=== PATIENT | female | born 1945 | race Caucasian/White ===

== ENCOUNTER 2017-03-08 08:34 | Outpatient (CLI) | payer MEDICARE, OTHER | END 2017-03-08 08:35 | disposition home or self-care (01) | DX: G43.009 Migraine without aura, not intractable, without status migrainosus (principal); Z79.899 Other long term (current) drug therapy; K21.9 Gastro-esophageal reflux disease without esophagitis; Z13.6 Encounter for screening for cardiovascular disorders ==

== ENCOUNTER 2017-08-12 17:59 | Outpatient (CLI) | payer MEDICARE, OTHER ==
--- NOTE | 2017-08-13 09:57 | CT Report ---
CT SINUSES: 08/12/2017 CLINICAL INDICATION: Right supraorbital headache. TECHNIQUE: Axial CT images of the paranasal sinuses were obtained without contrast, following which sagittal and coronal reconstructions were performed. In accordance with CT protocol optimization, one or more of the following dose reduction techniques w ere utilized for this exam: automated exposure control, adjustment of mA and/or KV based on patient size, or use of iterative reconstructive technique. FINDINGS: Postoperative changes are seen in the medial rudolph of the maxillary sinuses bilaterally. There is minimal mucosal thickening in the right maxillary sinus, and mild mucosal thickening in the left maxillary sinus. The visualized ethmoid air cells, sphenoid sinus, and frontal sinuses are unre markable. There is leftward spurring of the septum. No osseous destruction is seen. IMPRESSION: POSTOPERATIVE CHANGES BILATERALLY. MILD MAXILLARY MUCOSAL THICKENING. JOB #: [id number] EXT JOB #:[id number]
== END 2017-08-12 18:00 | disposition home or self-care (01) ==
LOC: DI 17:59
DX: R51 Headache (principal)
CPT/HCPCS: 70486

== ENCOUNTER 2017-12-01 07:56 | Outpatient (CLI) | payer MEDICARE, OTHER ==
[2017-12-01 12:04] LABS: T4 (THYROXINE) 8.24 ug/dL (6.09-12.23)
[2017-12-01 12:07] LABS: THYROID STIMULATING HORMONE 3.06 uIU/mL (0.34-5.60)
[2017-12-01 12:09] LABS: FREE T4 (FREE THYROXINE) 0.96 ng/dL (0.58-1.64)
[2017-12-01 12:14] LABS: TOTAL T3 1.02 ng/mL (0.87-1.78)
== END 2017-12-01 07:57 | disposition home or self-care (01) ==
LOC: LAB.F 07:56
PROVIDERS: ATTEND Internal Medicine
DX: R68.89 Other general symptoms and signs (principal)
CPT/HCPCS: 36415; 84436; 84439; 84443; 84480; 84481

== ENCOUNTER 2018-05-27 15:22 | Outpatient (CLI) | payer MEDICARE, OTHER ==
--- NOTE | 2018-05-28 15:24 | MRI Report ---
Procedure Date: 05/27/2018 Accession Number: [id number] / [id number] Procedure: MRI - Lumbar Spine W/O CPT Code: FULL RESULT: EXAM: MRI LUMBAR SPINE WITHOUT CONTRAST EXAM DATE: 05/27/2018 04:01 PM. CLINICAL HISTORY: LUMBAR RADICULOPATHY. COMPARISON: None. TECHNIQUE: Multiplanar, multisequence T1-weighted and fluid-sensitive sequences of the lumbar spine from T12 to S1 without contrast. Other: None. FINDINGS: Alignment: Approximately 2 mm posterior subluxation L2 on L3 and L4 on L5. Mild lumbar curvature convex right. Otherwise normal alignment. Spinal Canal: The conus terminates at L1-L2. The conus medullaris and cauda equina are unremarkable. Bone Marrow: Five wyn-fvn-ecekjpf lumbar vertebral bodies are assumed. No acute fracture identified. Fatty diskogenic endplate changes at L4-L5. Small amount of diskogenic edema posteriorly at L3-L4. T11 vertebral body lesion most consistent with atypical hemangioma. Smaller L1 vertebral body hemangioma. Disk Levels/Facets: T12-L1: Unremarkable. L1-L2: Disk height loss and dehydration. Annular disk bulge with tiny annular fissure. Mild central canal stenosis. No significant foraminal stenosis. L2-L3: Disk height loss and dehydration. Slight retrolisthesis. Annular disk bulge and moderate degenerative facet arthropathy. Lbni-yw-xpxedeqg central canal stenosis. Mild inferior foraminal narrowing. L3-L4: Disk height loss and dehydration. Annular disk bulge and moderate degenerative facet arthropathy. Ligamentum flavum buckling. Moderate central canal stenosis. Left lateral recess stenosis with some mass effect on the left-sided L4 and L5 nerve roots. Mild left foraminal stenosis. L4-L5: Disk height loss and dehydration. Annular disk bulge with broad-based superimposed central and right foraminal disk protrusion. Smaller left foraminal protrusion. Mild central canal stenosis. Right lateral recess stenosis. Moderate right greater than left foraminal stenosis. L5-S1: Disk height loss and dehydration. Annular disk bulge with broad-based left paracentral and foraminal protrusion as well as right foraminal protrusion. Moderate facet arthropathy. No significant central canal stenosis. Moderate to severe right and moderate left foraminal stenosis. Musculature: Atrophy of the lower paraspinous muscles. Other: Partially visualized large cystic structures in the left retroperitoneum, the largest measuring 8.5 cm in diameter suspicious for large left renal cyst, incompletely visualized. Consider further evaluation with ultrasound. IMPRESSION: 1. Moderate to severe multilevel lumbar degenerative disk and facet arthropathy. 2. L5-S1 moderate to severe right and moderate left foraminal stenosis. 3. L4-L5 mild central canal stenosis. Moderate right greater than left foraminal stenosis. 4. L3-L4 moderate central canal stenosis. Mild left foraminal stenosis. 5. L2-L3 vivu-vr-[id number] central canal stenosis. Comment: The following findings are so common in adults without low back pain that while we report their presence, they must be interpreted with caution and in the context of the clinical situation. (Reference Soniavik et al, Spine 2001) Prevalence of findings in patients without low back pain: Disk degeneration (any evidence): 92% Disk desiccation/T2 signal loss: 83% Disk height loss: 56% Disk bulge: 64% Disk protrusion: 32% Annular tear/high intensity zone: 38% RADIA
== END 2018-05-27 15:23 | disposition home or self-care (01) ==
LOC: DI 15:22
PROVIDERS: ATTEND Internal Medicine
DX: M51.36 Other intervertebral disc degeneration, lumbar region (principal); M51.26 Other intervertebral disc displacement, lumbar region; M47.896 Other spondylosis, lumbar region; M51.37 Other intervertebral disc degeneration, lumbosacral region; M47.897 Other spondylosis, lumbosacral region; M48.061 Spinal stenosis, lumbar region without neurogenic claudication; M48.07 Spinal stenosis, lumbosacral region
CPT/HCPCS: 72148

== ENCOUNTER 2018-12-28 16:22 | Outpatient (CLI) | payer MEDICARE, OTHER ==
--- NOTE | 2018-12-28 21:27 | MRI Report ---
Reason: CERVICAL SPONDYLOSIS W/MYELOPATHY Procedure Date: 12/28/2018 Accession Number: [id number] / [id number] Procedure: MRI - Cervical Spine W/O CPT Code: FULL RESULT: EXAM: MRI CERVICAL SPINE WITHOUT CONTRAST EXAM DATE: 12/28/2018 05:06 PM. CLINICAL HISTORY: 73-year-old female. CERVICAL SPONDYLOSIS W/MYELOPATHY. COMPARISONS: None. TECHNIQUE: Multiplanar, multisequence T1-weighted and fluid-sensitive sequences of the cervical spine without contrast. Other: None. FINDINGS: Neurologic Structures: The visualized posterior fossa structures are unremarkable. No signal abnormality in the visualized spinal cord. Alignment: Grade 1 retrolisthesis C4 on C5 measuring 2 mm. Grade 1 retrolisthesis C5 on C6 measuring 2 mm. Grade 1 retrolisthesis C6 on C7 measuring 2 mm. Bone Marrow: No gross fractures or bone lesions. No marrow edema. Interspace Levels/Facets: C1-C2: Unremarkable. C2-C3: Unremarkable. C3-C4: Mild diffuse disposed. Mild left facet arthropathy. No significant central canal or foraminal narrowing. C4-C5: Moderate disk height loss and desiccation. Small posterior disk osteophyte complex. Mild bilateral uncovertebral spurring. Mild to moderate left and mild right facet arthropathy. No significant central canal narrowing. Moderate left foraminal narrowing. No right foraminal narrowing. C5-C6: Moderate to severe disk height loss and desiccation. Moderate posterior disk osteophyte complex, asymmetric to the right, with superimposed 3 mm right foraminal protrusion. Mild to moderate bilateral facet arthropathy. Mild central canal narrowing. Moderate right and mild left foraminal narrowing. C6-C7: Moderate disk height loss and desiccation. Moderate posterior disk osteophyte complex. Mild central canal narrowing. Mild to moderate spinal foraminal narrowing. C7-T1: Unremarkable. Musculature: Normal. No edema or fatty atrophy. Other: Enlarged heterogeneous thyroid gland with multiple nodules, incompletely evaluated on this examination. The paravertebral and prevertebral soft tissues are normal. IMPRESSION: 1. Moderate multilevel degenerative spondylosis, as detailed above and summarized below. No evidence of acute fracture or malalignment. No bone marrow edema. No cord signal abnormality. 2. C4-C5: No significant central canal narrowing. Moderate left foraminal narrowing. No right foraminal narrowing. 3. C5-C6: Mild central canal narrowing. Moderate right and mild left foraminal narrowing. Recommend correlation for right C6 radicular symptoms. 4. C6-C7: Mild central canal narrowing. Mild to moderate spinal foraminal narrowing. 5. No significant central canal or foraminal narrowing at the remaining cervical levels. RADIA
== END 2018-12-28 16:23 | disposition home or self-care (01) ==
LOC: DI 16:22
PROVIDERS: ATTEND Orthopaedic Surgery
DX: M47.12 Other spondylosis with myelopathy, cervical region (principal); M48.02 Spinal stenosis, cervical region
CPT/HCPCS: 72141

== ENCOUNTER 2019-03-08 10:24 | Outpatient (CLI) | payer MEDICARE, OTHER ==
[2019-03-08 17:41] LABS: BASOPHILS % (AUTO) 0.4 %; EOSINOPHILS # (AUTO) 0.3 10^3/uL (0.0-0.7); EOSINOPHILS % (AUTO) 3.6 %; HGB - HEMOGLOBIN 12.5 g/dL (12.0-16.0); LYMPHOCYTES # (AUTO) 1.4 10^3/uL (1.5-3.5); LYMPHOCYTES % (AUTO) 15.6 %; MEAN CORPUSCULAR HEMOGLOBIN 29.1 pg (27.0-31.0); MEAN CORPUSCULAR HGB CONC 33.1 g/dL (32.0-36.0); MONOCYTES # (AUTO) 0.7 10^3/uL (0.0-1.0); MONOCYTES % (AUTO) 7.5 %; NEUTROPHILS # (AUTO) 6.7 10^3/uL (1.5-6.6); NEUTROPHILS % (AUTO) 72.9 %; PLT - PLATELET COUNT 271 10^3/uL (130-450); RED BLOOD COUNT 4.29 10^6/uL (4.20-5.40); RED CELL DISTRIBUTION WIDTH 14.2 % (12.0-15.0); WHITE BLOOD COUNT 9.2 x10^3/uL (4.8-10.8)
[2019-03-08 17:46] LABS: ALBUMIN 3.3 g/dL (3.2-5.5); BILIRUBIN,TOTAL 0.6 mg/dL (0.2-1.0); CALCIUM 8.7 mg/dL (8.5-10.3); CREATININE 0.7 mg/dL (0.4-1.0); TOTAL PROTEIN 6.7 g/dL (6.7-8.2)
== END 2019-03-08 10:25 | disposition home or self-care (01) ==
LOC: LAB.F 10:24
PROVIDERS: ATTEND Physician Assistant Medical
DX: E04.1 Nontoxic single thyroid nodule (principal); Z51.81 Encounter for therapeutic drug level monitoring; Z79.899 Other long term (current) drug therapy
CPT/HCPCS: 36415; 80053; 84443; 85025

== ENCOUNTER 2019-06-09 15:17 | Outpatient (CLI) | payer MEDICARE, OTHER ==
--- NOTE | 2019-06-11 03:58 | MRI Report ---
Reason: LUMBAR RADICULOPATHY Procedure Date: 06/09/2019 Accession Number: [id number] / [id number] Procedure: MRI - Lumbar Spine W/O CPT Code: FULL RESULT: EXAM: MRI LUMBAR SPINE WITHOUT CONTRAST EXAM DATE: 06/09/2019 04:07 PM. CLINICAL HISTORY: LUMBAR RADICULOPATHY. COMPARISON: LUMBAR SPINE W/O 05/27/2018 3:34 PM. TECHNIQUE: Multiplanar, multisequence T1-weighted and fluid-sensitive sequences of the lumbar spine from T12 to S1 without contrast. Other: None. FINDINGS: Spinal Canal: The conus terminates at L1. The conus medullaris and cauda equina are unremarkable. Alignment: No scoliosis or spondylolisthesis. Bone Marrow: Five ocr-vey-vwtspzc lumbar vertebral bodies are assumed. No gross fractures or bone lesions. No bone marrow replacement. Disk Levels/Facets: T12-L1: Unremarkable. L1-L2: There is a disk bulge with mild central canal narrowing. L2-L3: There is disk height loss and a disk bulge. There is mild facet hypertrophy. There is moderate central canal narrowing. L3-L4: There is a broad-based disk bulge. There is moderate facet hypertrophy. There is moderate central canal narrowing. There is mild left neural foraminal narrowing. L4-L5: There is disk height loss and endplate degenerative changes. There is mild facet hypertrophy. There is mild central canal narrowing. There is mild bilateral neural foraminal narrowing. L5-S1: There is a disk bulge. There is mild facet hypertrophy. There is mild central canal narrowing. There is moderate right and mild left neural foraminal narrowing. Comment: The following findings are so common in adults without low back pain that while we report their presence, they must be interpreted with caution and in the context of the clinical situation. (Reference Bradyk et al, Spine 2001) Prevalence of findings in patients without low back pain: Disk degeneration (any evidence): 92% Disk desiccation/T2 signal loss: 83% Disk height loss: 56% Disk bulge: 64% Disk protrusion: 32% Annular tear/high intensity zone: 38% Musculature: There is atrophy of the multifidus muscles. Other: Partly imaged 8.7 cm right renal cyst. IMPRESSION: 1. L2-L3 and L3-L4 disk bulges and facet hypertrophy with moderate central canal narrowing. L1-L2, L4-L5, and L5-S1 mild central canal narrowing. (Unchanged) 2. Moderate right L5-S1 neural foraminal narrowing. (Unchanged) 3. Mild left L3-L4, mild bilateral L4-L5, and mild left L5-S1 neural foraminal narrowing. (Unchanged) RADIA
== END 2019-06-09 15:18 | disposition home or self-care (01) ==
LOC: DI 15:17
PROVIDERS: ATTEND Family Medicine
DX: M51.36 Other intervertebral disc degeneration, lumbar region (principal); M48.061 Spinal stenosis, lumbar region without neurogenic claudication; M51.37 Other intervertebral disc degeneration, lumbosacral region; M48.07 Spinal stenosis, lumbosacral region; M47.816 Spondylosis without myelopathy or radiculopathy, lumbar region; M47.817 Spondylosis without myelopathy or radiculopathy, lumbosacral region
CPT/HCPCS: 72148

== ENCOUNTER 2019-12-29 10:26 | Outpatient (CLI) | payer MEDICARE, OTHER ==
--- NOTE | 2019-12-29 13:51 | MRI Report ---
Reason: RADICULOPATHY, MUSCLE SPASM OF THORACIC BACK, LUMB Procedure Date: 12/29/2019 Accession Number: [id number] / [id number] Procedure: MRI - Lumbar Spine W/O CPT Code: Final Report FULL RESULT: EXAM: MRI LUMBAR SPINE WITHOUT CONTRAST EXAM DATE: 12/29/2019 11:32 AM. CLINICAL HISTORY: Radiculopathy, muscle spasm of thoracic back, lump. COMPARISON: MRI 06/09/2019. TECHNIQUE: Multiplanar, multisequence T1-weighted and fluid-sensitive sequences of the lumbar spine from T11 to S1 without contrast. Other: None. FINDINGS: Spinal Canal: The conus terminates at L1. The conus medullaris and cauda equina are unremarkable. Alignment: 17 degree convex right scoliosis L2 to L4. 4 mm retrolisthesis L1 on L2, L2 on L3, and L3 on L4, similar. Bone Marrow: Five srd-ywe-oizgkju lumbar vertebral bodies are assumed. No gross fracture. Fat-containing hemangiomas at T11 and L1. Moderate degenerative endplate edema at L3-L4, asymmetric to the left with left L3-L4 facet edema, slightly progressed. Fatty endplate changes at L4-L5 and L5-S1 with subtle bone marrow edema, similar. Disk Levels/Facets: Disk desiccation throughout. Moderate to severe disk height loss, most prominent at L3-L4 and L4-L5. T10-T11: Sagittal images only. Minimal disk osteophyte complex. Mild facet hypertrophy. Minimal central canal stenosis. This was not included in previous field of view. T11-T12: Unremarkable. T12-L1: Unremarkable. L1-L2: Small disk osteophyte complex with right paracentral protrusion. Mild facet and ligamentum flavum hypertrophy. Mild central canal stenosis. Minimal bilateral neural foramen stenosis. This is similar. L2-L3: Small disk osteophyte complex with foraminal components. Mild facet and ligamentum flavum hypertrophy. Mild to moderate central canal stenosis. Minimal right and mild left neural foramen stenosis. This is similar. L3-L4: Small disk osteophyte complex with foraminal components, slightly increased. New small left paracentral protrusion versus extrusion. Mild facet hypertrophy. Interval left laminectomy. Minimal central canal stenosis, decreased. Left paracentral protrusion versus extrusion impinges the traversing left L4 nerve root. Disk and right facet may contact the traversing right L4 nerve root. Mild right neural foramen stenosis, similar. Moderate to severe left neural foramen stenosis, slightly progressed. L4-L5: Small disk osteophyte complex with central protrusion. Mild facet and ligamentum flavum hypertrophy. Mild to moderate central canal stenosis. Disk contacts the traversing right L5 nerve root. Mild to moderate bilateral neural foramen stenosis. This is similar. L5-S1: Small disk osteophyte complex, asymmetric to the right. Mild facet and ligamentum flavum hypertrophy. Disk and right facet contact and may impinge the traversing right S1 nerve root. Moderate to severe right and mild left neural foramen stenosis. This is similar. Musculature: Moderate fatty atrophy posterior paraspinous musculature. Mild reactive edema adjacent to the lumbar facets, most prominent at L3-L4 on the right. Other: Large cystic focus at the left kidney measuring at least 10 cm partially redemonstrated. IMPRESSION: 1. Left laminectomy at L3-L4 with decreased central canal stenosis, now minimal. 2. New small left paracentral disk protrusion versus extrusion at L3-L4 impinges the traversing left L4 nerve root. Moderate to severe left neural foramen stenosis, slightly progressed. 3. Moderate to severe degenerative disk and mild to moderate degenerative facet changes otherwise similar to previous. 4. Mild to moderate central canal stenosis at L2-L3. Mild stenosis at L1-L2 and L4-L5. 5. Disk at L4-L5 may contact the traversing right L5 nerve root. 6. Disk at L5-S1 contacts and may impinge the traversing right S1 nerve root. 7. Moderate to severe neural foramen stenosis at L5-S1 on the right. Mild to moderate stenosis at L4-L5 bilaterally. Comment: The following findings are so common in adults without low back pain that while we report their presence, they must be interpreted with caution and in the context of the clinical situation. (Reference Bradyk et al, Spine 2001) Prevalence of findings in patients without low back pain: Disk degeneration (any evidence): 92% Disk desiccation/T2 signal loss: 83% Disk height loss: 56% Disk bulge: 64% Disk protrusion: 32% Annular tear/high intensity zone: 38% RADIA
--- NOTE | 2019-12-30 05:26 | Ultrasound Report ---
Reason: URINARY INCONTINENCE MILD, RADICULOPATH Procedure Date: 12/29/2019 Accession Number: [id number] / [id number] Procedure: US - Retroperitoneal CPT Code: Final Report FULL RESULT: EXAM: RENAL ULTRASOUND EXAM DATE: 12/29/2019 11:39 AM. CLINICAL HISTORY: Urinary incontinence. COMPARISON: None. TECHNIQUE: Real-time scanning was performed with static images obtained. FINDINGS: Right Kidney: 10.4 x 3.8 x 4.4 cm. Normal echotexture with no stones, contour-deforming masses, or hydronephrosis. A simple cyst in the right upper pole measures 1.0 x 0.9 x 0.9 cm. Left Kidney: 13.8 x 4.8 x 4.8 cm. Normal echotexture with no stones, contour-deforming masses, or hydronephrosis. A large exophytic left renal cyst measures 9.6 x 7.7 x 9.9 cm. An adjacent smaller cyst measures 1.5 x 1.1 x 2.3 cm. An additional cyst in the medial kidney measuring 3.1 x 2.4 x 1.4 cm appears to contain layering debris. Bladder: Bilateral jets seen. The prevoid bladder volume was 83 cc. The postvoid bladder volume was 22 cc. Other: None. IMPRESSION: 1. Bilateral renal cysts, more on the left. 2. Suggestion of debris in the medial left renal cyst. RADIA
--- NOTE | 2019-12-31 02:42 | Ultrasound Report ---
Reason: URINARY INCONTINENCE MILD Procedure Date: 12/29/2019 Accession Number: [id number] / [id number] Procedure: US - Pelvic w/Transvaginal CPT Code: Final Report FULL RESULT: EXAM: PELVIC ULTRASOUND EXAM DATE: 12/29/2019 12:02 PM. CLINICAL HISTORY: URINARY INCONTINENCE MILD. COMPARISON: None. TECHNIQUE: Realtime transabdominal pelvic scan performed to identify the uterus and adnexa and as an overview of other pelvic structures, followed by transvaginal scan to provide greater detail of the uterus and adnexa, with static image documentation. FINDINGS: Uterus: 6.8 x 3.3 x 3.4 cm, volume 39.9 cc. Retroverted position. Normal overall size and echotexture. Masses: An anterior fundal fibroid measures 2.5 x 1.4 x 2.0 cm. Endometrium: 5 mm. Fluid in endometrial canal. Cervix: Limited visibility secondary to patient's body habitus. Right Ovary: 2.2 x 1.2 x 1.6 cm, volume 2.2 cc. Normal echotexture and blood flow. Left Ovary: 2.0 x 1.1 x 1.7 cm, volume 1.9 cc. Normal echotexture and blood flow. Free Fluid: None. Other: None. IMPRESSION: Small amount of endometrial canal fluid. RADIA
== END 2019-12-29 10:27 | disposition home or self-care (01) ==
LOC: DI 10:26
PROVIDERS: ATTEND Family Medicine
DX: M51.16 Intervertebral disc disorders with radiculopathy, lumbar region (principal); M47.816 Spondylosis without myelopathy or radiculopathy, lumbar region; M47.817 Spondylosis without myelopathy or radiculopathy, lumbosacral region; M43.16 Spondylolisthesis, lumbar region; M51.37 Other intervertebral disc degeneration, lumbosacral region; M41.9 Scoliosis, unspecified; M48.061 Spinal stenosis, lumbar region without neurogenic claudication; M48.07 Spinal stenosis, lumbosacral region; Q61.02 Congenital multiple renal cysts; R32 Unspecified urinary incontinence
CPT/HCPCS: 72148; 76770; 76830; 76856

== ENCOUNTER 2020-01-16 12:04 | Outpatient (CLI) | payer MEDICARE, OTHER ==
--- NOTE | 2020-01-16 14:49 | CT Report ---
Reason: LUMBAR RADICULOPATHY Procedure Date: 01/16/2020 Accession Number: [id number] / [id number] Procedure: CT - LUMBAR SPINE WO CPT Code: Final Report FULL RESULT: EXAM: CT LUMBAR SPINE WITHOUT CONTRAST EXAM DATE: 01/16/2020 12:25 PM. CLINICAL HISTORY: LUMBAR RADICULOPATHY. COMPARISONS: LUMBAR SPINE W/O 12/29/2019 11:04 AM. TECHNIQUE: Thin-section axial images were acquired of the lumbar spine from T12 to S1 without contrast. Post-processing: Coronal and sagittal reformats. Other: None. In accordance with CT protocol optimization, one or more of the following dose reduction techniques were utilized for this exam: automated exposure control, adjustment of mA and/or KV based on patient size, or use of iterative reconstructive technique. FINDINGS: Alignment: There is 19 degrees dextroscoliosis measured between L2-L3 and L4-L5. Bones: Five myr-xko-jccyfds lumbar vertebral bodies are present. No fractures or bone lesions. Disk Levels/Facets: T12-L1: Unremarkable. L1-L2: There is a broad-based disk bulge. There is mild facet hypertrophy. There is mild central canal. No neural foraminal narrowing. L2-L3: There is disk height loss and a broad-based disk bulge. There is moderate facet hypertrophy. There is mild central canal narrowing. No neural foraminal narrowing. L3-L4: There is a mild disk bulge. Status post prior left laminectomy. There is moderate left facet hypertrophy. No central canal narrowing. Mild left neural foraminal narrowing. L4-L5: Disk height loss and endplate degenerative changes. Broad-based disk bulge. Mild facet hypertrophy. Mild central canal narrowing. Mild bilateral neural foraminal narrowing. L5-S1: Mild disk bulge. Moderate facet hypertrophy. No central canal narrowing. Mild left and moderate right neural foraminal narrowing. Musculature: Normal. No fatty atrophy. Other: There is a 9 cm left renal cyst. IMPRESSION: 1. Multilevel disk bulges and facet hypertrophy with resultant mild central canal narrowing at L1-L2, L2-L3 and L4-L5. 2. Moderate right L5-S1 neural foraminal narrowing. 3. Mild left L3-L4, mild bilateral L4-L5, and mild left L5-S1 neural foraminal narrowing. 4. Status post remote left laminectomy at the L3-4 level. RADIA
--- NOTE | 2020-01-18 13:12 | XRAY Report ---
Reason: LUMBAR RADICULOPATHY Procedure Date: 01/16/2020 Accession Number: [id number] / [id number] Procedure: XR - Lumbar Spine w/Flex/Ext CPT Code: Final Report FULL RESULT: EXAM: LUMBOSACRAL SPINE RADIOGRAPHY EXAM DATE: 01/16/2020 12:57 PM. CLINICAL HISTORY: LUMBAR RADICULOPATHY. COMPARISONS: None. TECHNIQUE: AP, lateral neutral, flexion, and extension views. FINDINGS: Alignment: There is 20 degrees of apex right scoliotic curvature between L3 and L5. No significant subluxation on flexion, neutral, and extension. Bones: There is generalized demineralization. There is moderate multilevel endplate degenerative disease with disk osteophyte spurring. Vertebral bodies appear normal in height. Disks: There is moderate disk height loss throughout the lumbar spine. Facets: The facet joints are indistinct secondary to degenerative disease. Soft Tissues: There is moderate arterial vascular calcification. IMPRESSION: 1. Moderate multilevel diffuse degenerative disk disease without subluxation on flexion or extension. RADIA
== END 2020-01-16 12:05 | disposition home or self-care (01) ==
LOC: DI 12:04
PROVIDERS: ATTEND Neurological Surgery
DX: M51.16 Intervertebral disc disorders with radiculopathy, lumbar region (principal); M48.061 Spinal stenosis, lumbar region without neurogenic claudication
CPT/HCPCS: 72114; 72131

== ENCOUNTER 2020-04-03 11:20 | Outpatient (CLI) | payer MEDICARE, OTHER ==
[2020-04-03 11:59] LABS: BASOPHILS # (AUTO) 0.1 10^3/uL (0.0-0.1); BASOPHILS % (AUTO) 0.4 %; EOSINOPHILS # (AUTO) 0.2 10^3/uL (0.0-0.7); EOSINOPHILS % (AUTO) 1.5 %; HGB - HEMOGLOBIN 11.7 g/dL (12.0-16.0); LYMPHOCYTES # (AUTO) 2.1 10^3/uL (1.5-3.5); LYMPHOCYTES % (AUTO) 17.4 %; MEAN CORPUSCULAR HEMOGLOBIN 29.3 pg (27.0-31.0); MEAN CORPUSCULAR HGB CONC 32.7 g/dL (32.0-36.0); MEAN CORPUSCULAR VOLUME 89.7 fL (81.0-99.0); MEAN PLATELET VOLUME 9.8 fL (7.9-10.8); MONOCYTES # (AUTO) 0.9 10^3/uL (0.0-1.0); MONOCYTES % (AUTO) 7.1 %; NEUTROPHILS # (AUTO) 8.7 10^3/uL (1.5-6.6); PLT - PLATELET COUNT 332 10^3/uL (130-450); RED BLOOD COUNT 3.99 10^6/uL (4.20-5.40); RED CELL DISTRIBUTION WIDTH 13.9 % (12.0-15.0); WHITE BLOOD COUNT 11.9 x10^3/uL (4.8-10.8)
[2020-04-03 12:11] LABS: CREATININE 0.8 mg/dL (0.4-1.0)
== END 2020-04-03 11:21 | disposition home or self-care (01) ==
LOC: LAB 11:20
PROVIDERS: ATTEND Physician Assistant
DX: Z01.818 Encounter for other preprocedural examination (principal); J01.90 Acute sinusitis, unspecified
CPT/HCPCS: 36415; 80048; 85025; U0004; 81599

== ENCOUNTER 2020-04-03 11:22 | Outpatient (CLI) | payer MEDICARE, OTHER | END 2020-04-03 11:23 | disposition home or self-care (01) | LOC: COV 11:22 | PROVIDERS: ATTEND Family Medicine | DX: J01.90 Acute sinusitis, unspecified (principal) | CPT/HCPCS: 81599 ==

== ENCOUNTER 2020-08-06 08:02 | Inpatient (IN) | payer MEDICARE, OTHER ==
[2020-08-06] MEDS ORDERED: SODIUM CHLORIDE 0.9% 1,000 ML IV STA (08:19)
[2020-08-06] MEDS ORDERED: HYDROmorphone 2 MG/ML VIAL IVP STA (08:19)
--- NOTE | 2020-08-06 08:49 | XRAY Report ---
PROCEDURE: Hip w/Pelvis 2-3V LT INDICATIONS: fall/pain TECHNIQUE: AP pelvis with lateral view(s) of the bilateral hip(s). COMPARISON: None. FINDINGS: Bones: Transcervical fracture of the proximal left femur. Distal fracture fragment is proximally disp laced and in varus circulation. Pelvic ring appears intact. No suspicious bony lesions. Lumbar spine fixation hardware. Soft tissues: The visualized bowel gas pattern is normal. No suspicious soft tissue calcifications. IMPRESSION: Transcervical proximal left femur fracture. Reviewed by: Yelitza Polk MD, PhD on 08/06/2020 8:47 AM PDT Approved by: Yelitza Polk MD, PhD on 08/06/2020 8:47 AM PDT Station ID: [id number]
[2020-08-06] MEDS ORDERED: ONDANSETRON 4 MG/2 ML VIAL IVP PRN ×3 (08:52→17:12)
[2020-08-06] MEDS ORDERED: oxyCODONE 5 MG TABLET PO PRN (08:52)
[2020-08-06] MEDS ORDERED: SODIUM CHLORIDE FLUSH 0.9% 10 ML SYRINGE IVP PRN ×2 (08:52→17:12)
--- NOTE | 2020-08-06 08:54 | ED Physician Documentation ---
History of Present Illness - Stated complaint Stated Complaint: FALL/HIP PAIN - Chief complaint Chief Complaint: Ext Problem - History obtained from History obtained from: Patient - Additonal information Additional information: Patient comes emergency department complaining of left hip pain after taking a fall this morning. Patient states that she has a history of low back problems and left knee problems which have left her left leg weak. She was trying to get off the toilet this morning when she felt that her legs "just gave out" and she fell to the floor. Patient states that she fell on her left hip and had instant pain. She also bumped her elbow, but states she has been able to move it without difficulty and thinks it is just bruised. She did not hit her head or lose consciousness. No neck pain. No other complaints at this time. Patient denies any chest pain or shortness of breath. No fevers. Review of Systems Ten Systems: 10 systems reviewed and negative Constitutional: reports: Reviewed and negative Eyes: reports: Reviewed and negative Ears: reports: Reviewed and negative Nose: reports: Reviewed and negative Throat: reports: Reviewed and negative Cardiac: reports: Reviewed and negative Respiratory: reports: Dyspnea, Cough GI: reports: Reviewed and negative : reports: Reviewed and negative Skin: reports: Reviewed and negative Musculoskeletal: reports: Extremity pain, Joint pain Neurologic: reports: Reviewed and negative Psychiatric: reports: Reviewed and negative Endocrine: reports: Reviewed and negative Immunocompromised: reports: Reviewed and negative PD PAST MEDICAL HISTORY - Past Medical History Cardiovascular: None Respiratory: None Endocrine/Autoimmune: None GI: GERD : Incontinence HEENT: Chronic sinusitis Psych: None Musculoskeletal: Chronic back pain Derm: None - Past Surgical History Past Surgical History: Yes General: Colonoscopy, Other HEENT: Cataracts, Other - Present Medications Home Medications: Ambulatory Orders Medication Instructions Recorded Confirmed Hormones 02/10/16 - Allergies Allergies/Adverse Reactions: Allergies Allergy/AdvReac Type Severity Reaction Status Date / Time Sulfa (Sulfonamide Allergy Unknown Verified 08/06/20 08:13 Antibiotics) - Social History Does the pt smoke?: No Smoking Status: Never smoker Does the pt drink ETOH?: No Does the pt have substance abuse?: No PD ED PE NORMAL - Vitals Vital signs reviewed: Yes - General General: Alert and oriented X 3, No acute distress - HEENT HEENT: Atraumatic, PERRL, EOMI, Moist mucous membranes - Neck Neck: Supple, no meningeal sign - Cardiac Cardiac: RRR, No murmur - Respiratory Respiratory: No respiratory distress, Clear bilaterally - Abdomen Abdomen: Soft, Non tender, Non distended - Derm Derm: Warm and dry - Extremities Extremities: No deformity, Other (Severely limited range of motion of left hip, secondary to pain. No point tenderness over left hip.). No: Normal ROM s pain - Neuro Neuro: Alert and oriented X 3 - Psych Psych: Normal mood, Normal affect Results - Vitals Vitals: Vital Signs - 24 hr 08/06/20 08/06/20 08:13 08:15 Temperature 36.8 C Heart Rate 87 93 Respiratory 16 16 Rate Blood Pressure 131/74 H 133/73 H O2 Saturation 97 96 Oxygen O2 Source Room air - Rads (name of study) CXR Radiology: Final report received, EMP read indepedently, See rad report (LORENA mass vs infiltrate) CT thorax with contrast Radiology: Final report received, See rad report (malignant-appearing LORENA mass with metastatic lesions in bones and lymphadenopathy) PD MEDICAL DECISION MAKING - ED course Complexity details: reviewed old records, reviewed results, re-evaluated patient, considered differential, d/w patient ED course: Patient was worked up with X-ray of left hip and pelvis, which showed a femoral neck fracture. I spoke with Dr. Garcia of orthopedics about this, who stated he would take the patient to the OR today or tomorrow. I spoke with Dr. Maher, who stated he would admit the patient to his service. For preoperative purpos es, chest x-ray, EKG, and labs were obtained. The chest x-ray showed what appeared to likely be a mass in the left upper lobe, and radiologist did call me personally to recommend a CT scan to further evaluate this. This was discussed with pt and daughter. This was done, and confirmed a malignant-appearing mass. Pt was admitted to OR, and will be transferred to hospitalist service afterward for further care. Departure - Departure Disposition: [facility] DC/Xfer Clinical Impression: Femoral neck fracture Qualifiers: Encounter type: initial encounter Fracture type: closed Laterality: left Qualified Code(s): S72.002A - Fracture of unspecified part of neck of left femur, initial encounter for closed fracture Condition: Serious Discharge Date/Time: 08/06/20 15:08
--- NOTE | 2020-08-06 08:56 | HISTORY & PHYSICAL EXAMINATION ---
Chief Complaint - Chief Complaint Chief Complaint: Left hip pain History of Present Illness - Admitted From Admitted From:: Home - History Obtained From Records Reviewed: Yes History obtained from: Patient, Daugther, ER Physician. - History of Present Illness HPI Comment/Other: This is a 75-year-old female with chronic lower back pain who presents today after falling at home. She states she was attempting to get up off the toilet when she fell on the left side of her hip. She reports no syncope, lightheadedness, dizziness, chest pain, palpitations prior to the event. She reported left hip pain immediately after the fall. She states her left leg is normally weaker than her right and she has had chronic back pain issues. This has limited her mobility overall. She reports no fevers, chills, dysuria, urgency. She reports no history of stroke, diabetes, heart disease. She is unable to walk a flight of stairs due to her back pain but she reports no chest pain with activity. She reports she had 2 surgeries in the past year for her ba ck and she tolerated the anesthesia well. In the emergency department, she was found to have a left femoral neck fracture. Chest x-ray was also concerning for a left upper lobe mass. A CT of the chest was obtained and this is concerning for malignancy. This was discussed with the patient. I did ask her regarding goals of care and she would like to be a DNR. History - Past Medical History Cardiovascular: reports: None Respiratory: reports: None Endocrine/Autoimmune: reports: None GI: reports: GERD : reports: Incontinence HEENT: reports: Chronic sinusitis Psych: reports: None Musculoskeletal: reports: Chronic back pain Derm: reports: None MRSA Hx?: No - Past Surgical History General: reports: Colonoscopy, Other HEENT: reports: Cataracts, Other - Family & Social History Family History Comment/Other: She believes her mother had lung cancer and she was also a smoker. Living arrangement: At home Living Situation: Alone Social History Notes: She lives at home alone. She normally ambulates with a walker at baseline. She did smoke a pack a day for about 40 years but quit many years ago. Meds/Allgy - Home Medications Home Medications: Ambulatory Orders Medication Instructions Recorded Confirmed Hormones 02/10/16 - Allergies Allergies/Adverse Reactions: Allergies Allergy/AdvReac Type Severity Reaction Status Date / Time Sulfa (Sulfonamide Allergy Unknown Verified 08/06/20 08:13 Antibiotics) Review of Systems - Constitutional Constitutional: reports: Poor appetite, Weight loss. denies: Fatigue, Fever, Ch ills - Ears, Nose & Throat Ears, Nose & Throat: reports: Postnasal drainage. denies: Nasal discharge, Nasal congestion, Sore throat - Cardiovascular Cariovascular: denies: Palpitations, Chest pain, Edema, Lightheadedness - Respiratory Respiratory: reports: Cough. denies: SOB at rest, SOB with exertion - Gastrointestinal Gastrointestinal: denies: Abdominal pain, Nausea, Vomiting - Genitourinary Genitourinary: denies: Dysuria, Frequency, Urgency, Hematuria - Musculoskeletal Musculoskeletal: reports: Back pain, Limited range of motion - Neurological Neurological: reports: Abnormal gait. denies: General weakness, Focal weakness, Dizziness, Numbness - Hematologic/Lymphatic Hematologic/Lymphatic: denies: Anemia, Bleeding tendencies - All Other Systems All Other Systems: reports: Reviewed and negative Prior Level of Functionality: She ambulates with a walker at baseline. She is independent with her ADLs. Exam - Vital Signs Reviewed Vital Signs: Yes Vital Signs: Vital Signs x48h Temp Pulse Resp BP Pulse Ox 08/06/20 08:13 36.8 C 87 16 131/74 H 97 - Physical Exam General Appearance: positive: No acute distress, Alert Eyes Bilateral: positive: Normal inspection, Conjunctivae nml ENT: positive: ENT inspection nml Neck: positive: Nml inspection Respiratory: positive: No respiratory distress. negative: Wheezes, Rales Cardiovascular: positive: Regular rate & rhythm, Extrasystoles. negative: Tachycardia, Bradycardia, Systolic murmur Abdomen: positive: Non-tender, No distention. negative: Tenderness, Guarding, Rebound Skin: positive: Warm, Dry Extremities: positive: No pedal edema, Other (Left lower extremity is externally rotated. There is no tenderness over the lateral aspect of the left hip. Pulses are intact distally.) Neurologic/Psychiatric: positive: Oriented x3. negative: Disoriented to person, Disoriented to place, Disoriented to time Conclusion/Plan - Problem List (1) Closed left hip fracture Conclusion/Plan: This is evident on imaging. We will make her n.p.o. for surgical intervention this afternoon. Pain control with oxycodone and morphine IV as needed. She will need aspirin for DVT prophylaxis postoperatively. She will also need to be started on Fosamax 2 weeks after this fracture. Will consult PT and OT as well as social work to assist with disposition planning. Qualifiers: Encounter type: initial encounter Qualified Code(s): S72.002A - Fracture of unspecified part of neck of left femur, initial encounter for closed fracture (2) Preop examination Conclusion/Plan: He is unable to function greater than 4 METS due to chronic back pain. She has no history of angina, heart disease, stroke, diabetes. Her EKG does not suggest ischemia. She has tolerated to surgery in the past year without difficulty. At this time, she is medically optimized to proceed with surgical intervention. No further work-up is necessary. Her Goldman perioperative risk for myocardial infarction is approximately 0.4%. (3) Mass of left lung Conclusion/Plan: This is concerning for malignancy given her smoking history and the findings on CT. These findings were discussed with the patient and her daughter. We discussed the importance for biopsy and this would likely need to be done by a director of labor relations as she needs an EBUS. We discussed that this can be done on an o utpatient basis once she recovers from her left hip fracture. - Lab Results Fish Bones: 08/06/20 09:11 08/06/20 09:11 Core Measures - Anticipated LOS I expect patient to be DC'd or transferred within 96 hours.: Yes - Issues Hospital Issues and Management Plan: 75-year-old female who presents for left hip fracture. We will admit her for surgical intervention and pain control. - DVT/VTE - Prophylaxis VTE/DVT Device ordered at admit?: Yes VTE/DVT Prophylaxis med ordered at admit?: Yes
[2020-08-06] MEDS ORDERED: LACTATED RINGERS 1,000 ML IV SCH ×2 (09:00→17:00)
--- NOTE | 2020-08-06 09:10 | XRAY Report ---
PROCEDURE: Chest 1 View X-Ray INDICATIONS: Chest pain TECHNIQUE: One view of the chest was acquired. COMPARISON: None FINDINGS: Surgical changes and devices: None. Lungs and pleura: There is a masslike consolidative opacity in the left apex which appears to exert m ass effect on the trachea and potentially the hilum and aortic arch. Remaining lungs clear. Mediastinum: Mediastinal contours appear normal. Heart size is normal. Bones and chest wall: No suspicious bony lesions. Overlying soft tissues appear unremarkable. IMPRESSION: Left apical lung mass suspected. CT chest with IV contrast recommended. Reviewed by: Dominic Zarco MD on 08/06/2020 9:09 AM PDT Approved by: Dominic Zarco MD on 08/06/2020 9:09 AM PDT Station ID: [id number]
[2020-08-06] MEDS ORDERED: HYDROmorphone 1 MG/ML CARPUJECT IVP STA (09:21)
[2020-08-06 09:27] LABS: BASOPHILS # (AUTO) 0.1 10^3/uL (0.0-0.1); BASOPHILS % (AUTO) 0.3 %; EOSINOPHILS # (AUTO) 0.1 10^3/uL (0.0-0.7); EOSINOPHILS % (AUTO) 0.3 %; HGB - HEMOGLOBIN 10.3 g/dL (12.0-16.0); LYMPHOCYTES # (AUTO) 1.1 10^3/uL (1.5-3.5); LYMPHOCYTES % (AUTO) 6.2 %; MEAN CORPUSCULAR HEMOGLOBIN 25.8 pg (27.0-31.0); MEAN CORPUSCULAR HGB CONC 31.4 g/dL (32.0-36.0); MEAN CORPUSCULAR VOLUME 82.2 fL (81.0-99.0); MEAN PLATELET VOLUME 9.4 fL (7.9-10.8); MONOCYTES # (AUTO) 0.7 10^3/uL (0.0-1.0); MONOCYTES % (AUTO) 4.1 %; NEUTROPHILS # (AUTO) 15.3 10^3/uL (1.5-6.6); NEUTROPHILS % (AUTO) 88.2 %; PLT - PLATELET COUNT 460 10^3/uL (130-450); RED BLOOD COUNT 3.99 10^6/uL (4.20-5.40); RED CELL DISTRIBUTION WIDTH 15.6 % (12.0-15.0); WHITE BLOOD COUNT 17.3 x10^3/uL (4.8-10.8)
[2020-08-06 09:32] LABS: ALBUMIN 2.9 g/dL (3.2-5.5); ALBUMIN/GLOBULIN RATIO 0.7 (1.0-2.2); BILIRUBIN,TOTAL 0.4 mg/dL (0.2-1.0); CALCIUM 8.7 mg/dL (8.5-10.3); CREATININE 0.8 mg/dL (0.4-1.0); TOTAL PROTEIN 7.3 g/dL (6.7-8.2)
[2020-08-06] MEDS ORDERED: IOVERSOL 320 100 ML VIAL IVP ONE ×2 (09:44→12:57)
[2020-08-06 09:45] LABS: INR 1.3 (0.8-1.2); PT - PROTHROMBIN TIME 14.1 secs (9.9-12.6)
--- NOTE | 2020-08-06 10:57 | CT Report ---
PROCEDURE: CHEST W INDICATIONS: LORENA mass, new dx CONTRAST: IV CONTRAST: Optiray 320 ml: 100 PO CONTRAST: *NO PO CONTRAST TECHNIQUE: After the administration of intravenous contrast, 5 mm thick sections acquired from the pulmonary api isabel to the posterior costophrenic angles. 7 mm thick coronal MIP reformats were acquired. For radia tion dose reduction, the following was used: automated exposure control, adjustment of mA and/or kV according to patient size. COMPARISON: None. FINDINGS: Image quality: Excellent. Lungs and pleura: There is an enhancing mass within the left superior hilum extending into the left u pper lobe along the bronchovascular with encasement of multiple airways and vessels. The mass is diff icult to measure precisely, as there is a central avidly enhancing component with less avidly enhanci ng peripheral components which may represent a combination of necrotic neoplasm and postobstructive a telectasis/consolidation. The central enhancing component measures at least 4 x 6 cm maximum axial di mension and 6.4 cm craniocaudal dimension. There are numerous areas of wispy enhancement within the c onsolidated and collapsed left upper lobe which are suspicious for areas of neoplasm. It may be that the enhancing central mass greatly underestimate the total tumor volume in that there is significant extension of the tumor to the apical and apicolateral pleural surface. Mediastinum: Multiple suspicious left prevascular and AP window lymph nodes suspicious for mediastina l carlos metastases. Bones and chest wall: There are a few areas of abnormal attenuation and enhancement between the left first and second and second and third ribs which are suspicious for chest wall invasion. Abdomen: No adrenal gland nodule or mass. No mass in the visualized portion of the liver. Multiple la rge left renal cysts. IMPRESSION: Large enhancing central predominant perihilar and left upper lobe mass which is almost certainly jw gnant. Endobronchial biopsy is recommended, as there is extensive suspected necrotic tumor peripheral ly with most of the bilateral active tumor central near the hilar bronchovascular bundle. Metastatic mediastinal lymph nodes are present. Few areas of abnormal attenuation and subtle enhancement between the left first and second ribs near the apico- lateral pleural surface are suspicious for chest wall invasion. PET CT may be helpful in d ifferentiating tumor from post obstructive atelectasis and consolidation. MRI of the brain recommended to assess for intracranial metastatic disease. Reviewed by: Dominic Zarco MD on 08/06/2020 10:55 AM PDT Approved by: Dominic Zraco MD on 08/06/2020 10:55 AM PDT Station ID: [id number]
--- NOTE | 2020-08-06 12:10 | CONSULTATION NOTE ---
DATE OF SERVICE: 08/06/2020 Physician: Gentry Garcia MD REFERRING PHYSICIAN: Dr. Merry Cline of the emergency room department. CHIEF COMPLAINT: "My left hip hurts." HISTORY OF PRESENT ILLNESS: The patient is a 75-year-old woman, somewhat limited in her mo bility secondary to herniated lumbar disk. She has had 2 prior surgical procedures. Has also had a chronic problem with her ipsilateral left knee, which has resulted in limited mobility and her "dragg ing her left leg now for some time." She was in her usual state of health this morning when she appar ently fell in her bathroom, landing on her left side. She noted immediate pain, deformity and inabil ity to stand secondary to pain. She denied a loss of consciousness or other injuries. She was taken to the emergency room here at [facility], where her evaluation included x-rays of the left hip, showing a displaced subcapital hip fracture, left side. The patient had no prior hip surge albina, no prior hip fractures. Denies distal weakness and numbness in the lower extremity. PHYSICAL EXAMINATION: The patient's left hip shows some pain with range of motion of the hip. Has p rimarily anterior groin tenderness on the left side. She moves her toes satisfactorily. Sensation a ppeared to be intact as well in the foot. Good capillary filling noted. IMAGING: Review of x-rays of the left hip shows a displaced subcapital hip fracture, left side. ASSESSMENT 1. Closed displaced left subcapital hip fracture. 2. Limited mobility. 3. Status post multiple back surgeries in the past with instrumentation for herniated disk. 4. History of chronic sinusitis related to seasonal pollens. PLAN: The patient will be admitted to the medical service and will have preoperative evaluation. We will tentatively plan on doing a surgical procedure this afternoon, namely a cementless bipolar hip and prosthesis. I have discussed treatment options as well as risks and benefits of surgery with bot h the patient and her daughter today. Some of these risks and complications include anesthesia risks , blood loss, nerve damage, infection, blood clots, new fractures, etc. All of her questions were an swered. They wished to proceed with surgery as indicated. Her consent has been signed. Her leg has been marked. TD: 08/06/2020 11:09
[2020-08-06] MEDS: MORPHINE 2 MG/ML CARPUJECT IVP PRN ×2 (12:24→14:13)
[2020-08-06] MEDS ORDERED: ceFAZolin 2 GM in SODIUM CHLORIDE 0.9% 100ML 100 ML IV SCH (13:00)
[2020-08-06] MEDS ORDERED: BUPIVACAINE 0.25%-EPI 1:200000 PF 30 ML VIAL ONE (14:16)
--- NOTE | 2020-08-06 14:55 | ANESTHESIA ---
Pre-Anesthesia VS, & Labs - Diagnosis L hip fx - Procedure L hip hemiarthroplasty Vital Signs: Temp Pulse Resp BP Pulse Ox 36.8 C 86 17 105/61 98 08/06/20 08:13 08/06/20 13:25 08/06/20 13:25 08/06/20 13:25 08/06/20 13:25 Height: 5 ft 7 in Weight (kg): 60.781 kg Body Mass Index: 20.9 BMI Classification: Healthy weight - NPO >8 hours - Is Patient ?: No - Lab Results Current Lab Results: Laboratory Tests 08/06/20 11:33: Blood Type Recheck A POSITIVE 08/06/20 11:15: Blood Type A POSITIVE, Antibody Screen NEGATIVE 08/06/20 09:11: Sodium 133 L, Potassium 3.9, Chloride 96 L, Carbon Dioxide 26, Anion Gap 11.0, BUN 20, Creatinine 0.8, Estimated GFR (MDRD) 70 L, Glucose 128 H , Calcium 8.7, Total Bilirubin 0.4, AST 21, ALT 15, Alkaline Phosphatase 73, T otal Protein 7.3, Albumin 2.9 L, Globulin 4.4 H, Albumin/Globulin Ratio 0.7 L, Lipase 24 08/06/20 09:11: PT 14.1 H, INR 1.3 H 08/06/20 09:11: WBC 17.3 H, RBC 3.99 L, Hgb 10.3 L, Hct 32.8 L, MCV 82.2, MCH 25.8 L, MCHC 31.4 L, RDW 15.6 H, Plt Count 460 H, MPV 9.4, Neut # (Auto) 15.3 H, Lymph # (Auto) 1.1 L, [place] # (Auto) 0.7, Eos # (Auto) 0.1, Baso # (Auto) 0.1, Absolute Nucleated RBC 0.00, Nucleated RBC % 0.0 Lab results reviewed: Yes Fish Bones: 08/06/20 09:11 08/06/20 09:11 Home Medications and Allergies Active Medications Acetaminophen (Tylenol) 650 mg PO Q4HR PRN PRN Reason: Pain 1 to 4 Enoxaparin Sodium (Lovenox) 40 mg SUBQ DAILY AWAIS Lactated Ringer's (Lr) 1,000 mls @ 100 mls/hr IV .Q10H AWAIS Last Admin: 08/06/20 12:08 Dose: 100 mls/hr Documented by: Cefazolin Sodium 2 gm/ Sodium (Chloride) 100 mls @ 200 mls/hr IV ONCE AWAIS Stop: 08/06/20 18:00 Morphine Sulfate (Morphine (Carpuject)) 2 mg IVP Q2HR PRN PRN Reason: Pain 8 to 10 Last Admin: 08/06/20 14:13 Dose: 2 mg Documented by: Ondansetron HCl (Zofran Inj) 4 mg IVP Q6HR PRN PRN Reason: Nausea / Vomiting Oxycodone HCl (Roxicodone) 5 mg PO Q4HR PRN PRN Reason: Pain 5 to 7 Sodium Chloride (Normal Saline Flush 0.9%) 10 ml IVP PRN PRN PRN Reason: NEEDED PER PROVIDER ORDERS Sodium Chloride (Normal Saline Flush 0.9%) 10 ml IVP 0100,0900,1700 AWAIS Hormones 02/10/16 Allergies/Adverse Reactions: Allergies Allergy/AdvReac Type Severity Reaction Status Date / Time Sulfa (Sulfonamide Allergy Unknown Verified 08/06/20 08:13 Antibiotics) Anes History & Medical History - Anesthetic History Anesthesia Complications: reports: No previous complications, Post-Operative Nausea/Vomiting Family history of Anesthesia Complications: Denies Family history of Malignant Hyperthermia: Denies - Medical History Cardiovascular: reports: None Pulmonary: reports: None Gastrointestinal: reports: GERD Urinary: reports: Incontinence Musculoskeletal: reports: Chronic back pain Endocrine/Autoimmune: reports: None Skin: reports: None Smoking Status: Never smoker - Surgical History General: Colonoscopy, Other Eyes Ears Nose Throat (EENT): Cataracts, Other Orthopedic: Other (multiple back fusions) Exam General: Alert, Oriented x3, Cooperative Dental: WNL Mouth Opening: Greater than 4 Fingerbreadths Neck Mobility: Normal Mallampati classification: I Thyromental Distance: greater than 6 cm Respiratory: Lungs clear, Normal breath sounds, No respiratory distress, Other (new masses identified on cxr and ct, susoect malignancy) Cardiovascular: Regular rate (pt state hx of 1 degree block) Abdomen: Normal bowel sounds Mental/Cognitive Status: Alert/Oriented X3, Normal for patient Cognitive Status: Within normal limits Plan Anesthesia Type: General, Spinal, Fascia Iliaca Block (possible) Regional Block: Per Surgeon's request for Post Op pain control Consent for Procedure(s) Verified and Reviewed: Yes Code Status: Attempt Resuscitation ASA classification: 3-Severe systemic disease Is this case an emergency?: Yes
[2020-08-06] MEDS ORDERED: BUPIVACAINE 0.25%-EPI 1:200000 PF 30 ML VIAL SUBQ ONE (15:54)
[2020-08-06] MEDS ORDERED: MORPHINE 2 MG/ML CARPUJECT IVP PRN (16:15)
[2020-08-06] MEDS ORDERED: ATROPINE ABBOJECT 1 MG/10 ML SYRINGE IVP PRN (16:15)
[2020-08-06] MEDS ORDERED: NALOXONE 0.4 MG/ML VIAL IVP PRN (16:15)
[2020-08-06] MEDS ORDERED: HYDROmorphone 0.5 MG/0.5 ML SYRINGE IVP PRN (16:15)
[2020-08-06] MEDS ORDERED: fentaNYL 100 MCG/2 ML VIAL IVP PRN (16:15)
[2020-08-06] MEDS ORDERED: ePHEDrine 50 MG/ML VIAL IVP PRN (16:15)
[2020-08-06] MEDS ORDERED: METOCLOPRAMIDE 10 MG/2 ML VIAL IVP PRN (16:15)
[2020-08-06] MEDS ORDERED: LACTATED RINGERS 1,000 ML IV ONE (17:09)
[2020-08-06] MEDS ORDERED: DOCUSATE SODIUM 100 MG CAPSULE PO PRN (17:12)
[2020-08-06] MEDS ORDERED: SENNA 8.6 MG TABLET PO PRN (17:12)
[2020-08-06] MEDS ORDERED: ACETAMINOPHEN 325 MG TABLET PO PRN (17:12)
--- NOTE | 2020-08-06 17:21 | OPERATIVE REPORT ---
Operative Report - General Admit Date: 08/06/20 Procedure Date: 08/06/20 Planned Procedure: Cementless left hip bipolar endoprosthesis Pre-Op Diagnosis: Displaced left subcapital hip fracture Procedure Performed: Cementless left hip bipolar endoprosthesis Post Op Diagnosis: Same - Procedure Note Primary Surgeon: Shae Garcia MD Anesthesia Provider: Leonela Alexandra CRNA Anesthesia Technique: Spinal IV Fluids (mL): 1,000 Estimated Blood Loss (mL): 300 Complications: None
--- NOTE | 2020-08-06 17:34 | ANESTHESIA POST OP EVALUATION ---
Anesthesia Post Eval - Post Anesthesia Eval Vitals: Last Vital Signs Temp 36.8 C 08/06/20 08:13 Pulse 91 08/06/20 15:00 Resp 11 L 08/06/20 15:00 BP 124/76 08/06/20 15:00 Pulse Ox 96 08/06/20 15:00 CV Function Including HR & BP: positive: Stable Pain Control: positive: Satisfactory Nausea & Vomiting: positive: Negative Mental Status: positive: Baseline Respiratory Status: Airway Patent Hydration Status: Satisfactory Anesthesia Complications: positive: None
--- NOTE | 2020-08-06 17:40 | XRAY Report ---
PROCEDURE: Hip w/Pelvis 1V LT INDICATIONS: post op left hip endoprosthesis TECHNIQUE: AP view of pelvis and left hip(s). COMPARISON: None. FINDINGS: Bones: Patient is status post left total hip arthroplasty with anatomic left hip alignment. Pelvic ri ng appears intact. No suspicious bony lesions. Soft tissues: Expected postsurgical changes in lateral left hip/upper thigh soft tissue is seen. Num erous skin ivanna also noted. The visualized bowel gas pattern is normal. No suspicious soft tissue calcifications. IMPRESSION: Postsurgical changes from left total hip arthroplasty with anatomic left hip alignment. Reviewed by: Bernardino Issa MD on 08/06/2020 4:38 PM AKDT Approved by: Bernardino Issa MD on 08/06/2020 4:38 PM AKDT Station ID: [id number]
[2020-08-06] MEDS: SODIUM CHLORIDE FLUSH 0.9% 10 ML SYRINGE IVP SCH (18:20)
--- NOTE | 2020-08-06 18:32 | OPERATIVE REPORT ---
DATE OF SERVICE: 08/06/2020 Physician: Gentry Garcia MD PREOPERATIVE DIAGNOSIS: Closed displaced left subcapital hip fracture. POSTOPERATIVE DIAGNOSIS: Closed displaced left subcapital hip fracture. PROCEDURE PERFORMED: Cementless left hip bipolar endoprosthesis. SURGEON: Gentry Garcia MD ANESTHESIA: Spinal. DESCRIPTION OF PROCEDURE: Patient was taken to the operating room of the afternoon of 08/06/2020 whe re she was placed under a spinal anesthetic without any complications. She was then positioned onto the fracture table with the pegboard on the operating room table in a lateral decubitus position, lef t side up. held in place with several pegs. Satisfied with her positioning, we then prepped and sean ped the hip free in our usual fashion. Making a curvilinear skin incision over the lateral aspect of the proximal femur, curving toward the midline. Proximally, we dissected through the skin and down to the fascia ammy. Hemostasis was obtained using electrocautery. We then incised the fascia ammy l loretta. The Vang scissors were used to extend the incision both proximally and distally in the directi on of our skin incision. At this point, we then internally rotated the hip. Putting some tension on the external rotators. Electrocautery was then used to transect the attachment of the short externa l rotators to the proximal femur. Soft tissues were then held out of the way using the Charnley retr actor. Hemostasis was again obtained. Using our cutting guide along the proximal femur, we transect ed the base of the femoral neck with the oscillating saw 1 fingerbreadth proximal to the level of the lesser trochanter in the direction of our cutting jig. As we came out laterally, we stopped and cam e from the superior approach to complete our osteotomy. Femoral neck fragment was then removed. Nex t, we put a T-type skin incision in the capsulotomy to free up and visualize the femoral head compone nt. Next, the cord screw extractor was then placed into the femoral head. We were able to extract t he femoral head at this point. The femoral head sizer was then used and we estimated a 46 mm diamete r head would be used for our prostheses. The soft tissue including the ligament of teres was then re moved from the acetabulum with a rongeur. Irrigation used to remove the remaining soft tissues out o f the acetabulum. We then proceeded to place the Charnley awl down the proximal femur down the femor al shaft. We then used rigid reamers sequentially reaming up to a 12 mm reamer. A 13 mm reamer was attempted, but the canal was quite tight, so we diverted back to the 12 mm. Starting with a 10 mm br oach, we then proceeded to prepare the proximal femur using broaches starting with the 10, then 11, t hen finally the 12 mm broach. Detaching the handle from the broach, we then trialed the estimated pr osthesis, namely standard offset 0 neck length, 46 mm outside diameter trial prosthesis was placed on our broach. We easily reduced the hip, keeping the soft tissues out of the joint. We then checked the leg, noted that there was no pistoning on traction on the leg. No impingement noted in extension with the leg externally rotated. The leg was stable in sleep position. Then, flexing the hip to 90 degrees with 0 degrees of abduction, we were able to internally rotate the leg to about 80 degrees, noting good stability of the joint. Satisfied with this, we then proceeded to remove the trial prost heses from the hip and the proximal femur. We then irrigated the proximal femur and acetabulum using irrigation solution. We then inserted the final prostheses, placing first the femoral component int o the prepared proximal femur using a hammer to tap this into place. Satisfied with the position, we then proceeded to insert the permanent proximal femoral head prostheses onto the stem with a standar d offset 0 neck length and inside diameter 28 mm with the outside diameter of 46 mm. This was tapped into place with a mallet and the hammer. Satisfied with the fixation of our prostheses we then redu mukesh the hip without any problems making sure again there was no soft tissue interposition. We then c hecked on the stability of our prostheses. Patient was able to fully extend the leg easily. It appe ared to be out to length and match the opposite leg. No impingement with extension and external rota tion of the leg. Stable in sleep position. With the leg flexed at 90 degrees and 0 degrees abductio n, we were able to internally rotate the leg to 70 to 75 degrees without any subluxation of the prost heses. Satisfied with this, we then irrigated the wounds out thoroughly with saline. We then reatta ched the capsule incision with a [id number] stitch. The fascia ammy incision was then closed wi th a baseball stitch of 0 Vicryl. Subcutaneous tissue was closed with buried simple stitches of 2-0 Vicryl. Finally, skin ivanna used to approximate the skin edge. Next, 20 mL of 0.25% Marcaine with epinephrine was then used to provide local anesthesia to the incision. We dressed the wound with Xe roform gauze, 4 x 4's, and a Tegaderm dressing. Patient was then transferred off the operating room table onto her bed with a hip abductor pillow placed between her legs. ESTIMATED BLOOD LOSS: 300 mL REPLACEMENT: 1000 mL crystalloid. INTRAOPERATIVE COMPLICATIONS: None. PLAN: Patient will be weightbearing as tolerated. Total hip precautions will be observed. TD: 08/06/2020 17:33
[2020-08-06] MEDS: ACETAMINOPHEN 325 MG TABLET PO PRN (18:33)
[2020-08-06] MEDS ORDERED: HYDROcod/ACETAM 5/325 MG TABLET PO PRN (19:41)
[2020-08-06] MEDS: SODIUM CHLORIDE 0.9% 1,000 ML IV SCH (19:46)
[2020-08-06] MEDS: ceFAZolin 2 GM in SODIUM CHLORIDE 0.9% 100ML 100 ML IV SCH (19:46)
[2020-08-06] MEDS: HYDROcod/ACETAM 5/325 MG TABLET PO PRN (22:11)
[2020-08-07] MEDS: MORPHINE 2 MG/ML CARPUJECT IVP PRN ×8 (00:22→20:23)
[2020-08-07] MEDS: SODIUM CHLORIDE FLUSH 0.9% 10 ML SYRINGE IVP SCH ×7 (00:23→17:04)
[2020-08-07] MEDS: ceFAZolin 2 GM in SODIUM CHLORIDE 0.9% 100ML 100 ML IV SCH (03:21)
[2020-08-07 05:14] LABS: BASOPHILS % (AUTO) 0.3 %; EOSINOPHILS # (AUTO) 0.4 10^3/uL (0.0-0.7); EOSINOPHILS % (AUTO) 3.3 %; HGB - HEMOGLOBIN 8.8 g/dL (12.0-16.0); LYMPHOCYTES # (AUTO) 0.9 10^3/uL (1.5-3.5); LYMPHOCYTES % (AUTO) 6.5 %; MEAN CORPUSCULAR HEMOGLOBIN 26.2 pg (27.0-31.0); MEAN CORPUSCULAR HGB CONC 31.2 g/dL (32.0-36.0); MEAN CORPUSCULAR VOLUME 83.9 fL (81.0-99.0); MEAN PLATELET VOLUME 9.4 fL (7.9-10.8); MONOCYTES # (AUTO) 0.6 10^3/uL (0.0-1.0); MONOCYTES % (AUTO) 4.6 %; NEUTROPHILS # (AUTO) 11.1 10^3/uL (1.5-6.6); NEUTROPHILS % (AUTO) 84.7 %; PLT - PLATELET COUNT 360 10^3/uL (130-450); RED BLOOD COUNT 3.36 10^6/uL (4.20-5.40); RED CELL DISTRIBUTION WIDTH 15.6 % (12.0-15.0); WHITE BLOOD COUNT 13.2 x10^3/uL (4.8-10.8)
[2020-08-07 05:31] LABS: CALCIUM 8.2 mg/dL (8.5-10.3); CREATININE 0.9 mg/dL (0.4-1.0); MAGNESIUM 1.9 mg/dL (1.7-2.8); PHOSPHORUS 3.6 mg/dL (2.5-4.6)
--- NOTE | 2020-08-07 07:48 | PROVIDER PROGRESS NOTE ---
Subjective - Prog Note Date Prog Note Date: 08/07/20 - Subjective Subjective: She reports the pain is 10 out of 10 in her left hip. Denies any chest pain, dyspnea. The pain is worse with movement. Reports no numbness in her lower extremities. Current Medications - Current Medications Current Medications: Active Medications Acetaminophen (Tylenol) 650 mg PO Q4HR PRN PRN Reason: Pain 1 to 4 Last Admin: 08/06/20 18:33 Dose: 650 mg Documented by: Acetaminophen (Tylenol) 650 - 975 mg PO Q4HR PRN PRN Reason: PAIN Hydrocodone Bitart/Acetaminophen ([place] 5/325) 0.5 tab PO Q4HR PRN PRN Reason: PAIN Last Admin: 08/07/20 08:29 Dose: 0.5 tab Documented by: Aspirin (Jarred) 325 mg PO BIDWM [facility] Last Admin: 08/07/20 11:56 Dose: Not Given Documented by: Docusate Sodium (Colace 100mg Capsule) 100 mg PO BID PRN PRN Reason: Constipation Sodium Chloride (Normal Saline 0.9%) 1,000 mls @ 100 mls/hr IV .Q10H [facility] Last Admin: 08/07/20 08:30 Dose: 100 mls/hr Documented by: Ketorolac Tromethamine (Toradol Inj (30mg)) 30 mg IVP Q6HR PRN PRN Reason: PAIN Stop: 08/12/20 15:56 Lactobacillus Rhamnosus (Culturelle) 1 cap PO DAILY [facility] Morphine Sulfate (Morphine (Carpuject)) 2 mg IVP Q2HR PRN PRN Reason: Pain 8 to 10 Last Admin: 08/07/20 15:48 Dose: 2 mg Documented by: Multivitamins/Minerals (Theragran M) 1 tab PO DAILYWM [facility] Ondansetron HCl (Zofran Inj) 4 mg IVP Q6HR PRN PRN Reason: Nausea / Vomiting Senna (Senokot) 17.2 mg PO Q12H PRN PRN Reason: Constipation Sodium Chloride (Normal Saline Flush 0.9%) 10 ml IVP PRN PRN PRN Reason: NEEDED PER PROVIDER ORDERS Sodium Chloride (Normal Saline Flush 0.9%) 10 ml IVP 0100,0900,1700 [facility] Last Admin: 08/07/20 06:37 Dose: 10 ml Documented by: Sodium Chloride (Normal Saline Flush 0.9%) 10 ml IVP 0100,0900,1700 [facility] Last Admin: 08/07/20 08:30 Dose: Not Given Documented by: Sodium Chloride (Normal Saline Flush 0.9%) 10 ml IVP PRN PRN PRN Reason: NEEDED PER PROVIDER ORDERS No Known Home Medications 08/07/20 Objective - Vital Signs/Intake & Output Reviewed Vital Signs: Yes Vital Signs: Vital Signs x48h Temp Pulse Resp BP Pulse Ox 08/07/20 03:05 37.1 C 95 16 118/62 98 Intake & Output: Intake & Output 08/04/20 08/05/20 08/06/20 08/07/20 23:59 23:59 23:59 23:59 Intake Total 1450 200 Output Total 200 300 Balance 1250 -100 - Objective General Appearance: positive: Alert, Moderate distress Eyes Bilateral: positive: Normal inspection, Conjunctivae nml ENT: positive: ENT inspection nml Neck: positive: Nml inspection Respiratory: positive: No respiratory distress. negative: Wheezes, Rales Cardiovascular: positive: Tachycardia. negative: Irregularly irregular, Bradycardia, Systolic murmur Abdomen: positive: Non-tender, No distention. negative: Tenderness Skin: positive: Warm, Dry Extremities: positive: No pedal edema, Other (Dressing is in place over the lateral aspect of the left hip. No surrounding erythema. No tenderness on palpation. Distal pulses intact.) - Lab Results Fish Bones: 08/07/20 04:40 08/07/20 04:40 Other Labs: Lab Results x24hrs 08/07/20 08/07/20 08/06/20 Range/Units 04:40 04:40 11:33 WBC 13.2 H (4.8-10.8) x10^3/uL RBC 3.36 L (4.20-5.40) 10^6/uL Hgb 8.8 L (12.0-16.0) g/dL Hct 28.2 L (37.0-47.0) % MCV 83.9 (81.0-99.0) fL MCH 26.2 L (27.0-31.0) pg MCHC 31.2 L (32.0-36.0) g/dL RDW 15.6 H (12.0-15.0) % Plt Count 360 (130-450) 10^3/uL MPV 9.4 (7.9-10.8) fL Neut # (Auto) 11.1 H (1.5-6.6) 10^3/uL Lymph # (Auto) 0.9 L (1.5-3.5) 10^3/uL [place] # (Auto) 0.6 (0.0-1.0) 10^3/uL Eos # (Auto) 0.4 (0.0-0.7) 10^3/uL Baso # (Auto) 0.0 (0.0-0.1) 10^3/uL Absolute Nucleated RBC 0.00 x10^3/uL Nucleated RBC % 0.0 /100WBC PT (9.9-12.6) secs INR (0.8-1.2) Sodium 135 (135-145) mmol/L Potassium 4.2 (3.5-5.0) mmol/L Chloride 103 (101-111) mmol/L Carbon Dioxide 25 (21-32) mmol/L Anion Gap 7.0 (6-13) BUN 15 (6-20) mg/dL Creatinine 0.9 (0.4-1.0) mg/dL Estimated GFR (MDRD) 61 L (>89) Glucose 121 H (70-100) mg/dL Calcium 8.2 L (8.5-10.3) mg/dL Phosphorus 3.6 (2.5-4.6) mg/dL Magnesium 1.9 (1.7-2.8) mg/dL Total Bilirubin (0.2-1.0) mg/dL AST (10-42) IU/L ALT (10-60) IU/L Alkaline Phosphatase (42-121) IU/L Total Protein (6.7-8.2) g/dL Albumin (3.2-5.5) g/dL Globulin (2.1-4.2) g/dL Albumin/Globulin Ratio (1.0-2.2) Lipase (22-51) U/L Blood Type Blood Type Recheck A POSITIVE Antibody Screen 08/06/20 08/06/20 08/06/20 Range/Units 11:15 09:11 09:11 WBC (4.8-10.8) x10^3/uL RBC (4.20-5.40) 10^6/uL Hgb (12.0-16.0) g/dL Hct (37.0-47.0) % MCV (81.0-99.0) fL MCH (27.0-31.0) pg MCHC (32.0-36.0) g/dL RDW (12.0-15.0) % Plt Count (130-450) 10^3/uL MPV (7.9-10.8) fL Neut # (Auto) (1.5-6.6) 10^3/uL Lymph # (Auto) (1.5-3.5) 10^3/uL [place] # (Auto) (0.0-1.0) 10^3/uL Eos # (Auto) (0.0-0.7) 10^3/uL Baso # (Auto) (0.0-0.1) 10^3/uL Absolute Nucleated RBC x10^3/uL Nucleated RBC % /100WBC PT 14.1 H (9.9-12.6) secs INR 1.3 H (0.8-1.2) Sodium 133 L (135-145) mmol/L Potassium 3.9 (3.5-5.0) mmol/L Chloride 96 L (101-111) mmol/L Carbon Dioxide 26 (21-32) mmol/L Anion Gap 11.0 (6-13) BUN 20 (6-20) mg/dL Creatinine 0.8 (0.4-1.0) mg/dL Estimated GFR (MDRD) 70 L (>89) Glucose 128 H (70-100) mg/dL Calcium 8.7 (8.5-10.3) mg/dL Phosphorus (2.5-4.6) mg/dL Magnesium (1.7-2.8) mg/dL Total Bilirubin 0.4 (0.2-1.0) mg/dL AST 21 (10-42) IU/L ALT 15 (10-60) IU/L Alkaline Phosphatase 73 (42-121) IU/L Total Protein 7.3 (6.7-8.2) g/dL Albumin 2.9 L (3.2-5.5) g/dL Globulin 4.4 H (2.1-4.2) g/dL Albumin/Globulin Ratio 0.7 L (1.0-2.2) Lipase 24 (22-51) U/L Blood Type A POSITIVE Blood Type Recheck Antibody Screen NEGATIVE 08/06/20 Range/Units 09:11 WBC 17.3 H (4.8-10.8) x10^3/uL RBC 3.99 L (4.20-5.40) 10^6/uL Hgb 10.3 L (12.0-16.0) g/dL Hct 32.8 L (37.0-47.0) % MCV 82.2 (81.0-99.0) fL MCH 25.8 L (27.0-31.0) pg MCHC 31.4 L (32.0-36.0) g/dL RDW 15.6 H (12.0-15.0) % Plt Count 460 H (130-450) 10^3/uL MPV 9.4 (7.9-10.8) fL Neut # (Auto) 15.3 H (1.5-6.6) 10^3/uL Lymph # (Auto) 1.1 L (1.5-3.5) 10^3/uL [place] # (Auto) 0.7 (0.0-1.0) 10^3/uL Eos # (Auto) 0.1 (0.0-0.7) 10^3/uL Baso # (Auto) 0.1 (0.0-0.1) 10^3/uL Absolute Nucleated RBC 0.00 x10^3/uL Nucleated RBC % 0.0 /100WBC PT (9.9-12.6) secs INR (0.8-1.2) Sodium (135-145) mmol/L Potassium (3.5-5.0) mmol/L Chloride (101-111) mmol/L Carbon Dioxide (21-32) mmol/L Anion Gap (6-13) BUN (6-20) mg/dL Creatinine (0.4-1.0) mg/dL Estimated GFR (MDRD) (>89) Glucose (70-100) mg/dL Calcium (8.5-10.3) mg/dL Phosphorus (2.5-4.6) mg/dL Magnesium (1.7-2.8) mg/dL Total Bilirubin (0.2-1.0) mg/dL AST (10-42) IU/L ALT (10-60) IU/L Alkaline Phosphatase (42-121) IU/L Total Protein (6.7-8.2) g/dL Albumin (3.2-5.5) g/dL Globulin (2.1-4.2) g/dL Albumin/Globulin Ratio (1.0-2.2) Lipase (22-51) U/L Blood Type Blood Type Recheck Antibody Screen ABX Reporting Has patient been on IV antibiotics over the past 48 hours?: No Assessment/Plan - Problem List (1) Closed left hip fracture Impression: She is postop day 1 for left hip hemiarthroplasty. Her pain is poorly controlled. We will continue with oxycodone and Dilaudid as needed. We will also start her on Toradol. Continue with aspirin 325 mg twice daily for DVT prophylaxis. She will need Fosamax 2 weeks postoperatively. Continue with PT and OT. Qualifiers: Encounter type: initial encounter Qualified Code(s): S72.002A - Fracture of unspecified part of neck of left femur, initial encounter for closed fracture (2) Mass of left lung Impression: This is a new finding this admission. Concern is for malignancy. She will need outpatient biopsy and follow-up with oncology. (3) Postoperative anemia Impression: Her hemoglobin has decreased postoperatively but there is no evidence of bleeding. We will monitor her hemoglobin on a daily basis. Continue with aspirin for DVT prophylaxis. (4) Leukocytosis Impression: Her white count has improved from admission. This is likely reactive in nature. There is been no obvious source of infection. We will continue to monitor and hold off on antibiotics.
[2020-08-07] MEDS: HYDROcod/ACETAM 5/325 MG TABLET PO PRN (08:29)
[2020-08-07] MEDS: SODIUM CHLORIDE 0.9% 1,000 ML IV SCH ×2 (08:30→17:59)
[2020-08-07] MEDS: ASPIRIN 325 MG TABLET PO SCH ×3 (08:30→17:04)
[2020-08-07] MEDS ORDERED: ENOXAPARIN 40 MG/0.4 ML SYRINGE SUBQ SCH (09:00)
--- NOTE | 2020-08-07 11:28 | PHARMACY PROGRESS NOTE ---
- Best Possible Medication History Admit Date and Time: 08/06/20 0852 Processed by: Pharmacy Medication History completed: Yes Patient Interview: Completed Secondary Source(s): Physician records (PATIENT INTERVIEWED BY PHARMACY. PATIENT STATES SHE TAKES HORMONES AT HOME, NOT REFLECTED BY INSURANCE OR PHARMACY RECORDS. PATIENT REPORTS SHE ALSO TAKES OTCs OCCASIONALLY.), Pharmacy records, Insurance records As the person ultimately responsible for medication therapy, providers are able to order a medication from an existing home medication list in [facility] via the "Reconcile Routine" prior to Confirmation of that medication by business support professional. Such practice is discouraged except when the physician, in their clinical judgment, deems that a medical need exists for a medication without regard to previous use.
--- NOTE | 2020-08-07 12:06 | PROVIDER PROGRESS NOTE ---
Subjective - Prog Note Date Prog Note Date: 08/07/20 Prog Note Time: 12:04 - Subjective Pt reports feeling: Improved (Usual post op pain) Objective - Vital Signs/Intake & Output Intake & Output: Intake & Output 08/04/20 08/05/20 08/06/20 08/07/20 23:59 23:59 23:59 23:59 Intake Total 1450 2200 Output Total 200 300 Balance 1250 1900 - Lab Results Fish Bones: 08/07/20 04:40 08/07/20 04:40 Other Labs: Lab Results x24hrs 08/07/20 08/07/20 Range/Units 04:40 04:40 WBC 13.2 H (4.8-10.8) x10^3/uL RBC 3.36 L (4.20-5.40) 10^6/uL Hgb 8.8 L (12.0-16.0) g/dL Hct 28.2 L (37.0-47.0) % MCV 83.9 (81.0-99.0) fL MCH 26.2 L (27.0-31.0) pg MCHC 31.2 L (32.0-36.0) g/dL RDW 15.6 H (12.0-15.0) % Plt Count 360 (130-450) 10^3/uL MPV 9.4 (7.9-10.8) fL Neut # (Auto) 11.1 H (1.5-6.6) 10^3/uL Lymph # (Auto) 0.9 L (1.5-3.5) 10^3/uL [place] # (Auto) 0.6 (0.0-1.0) 10^3/uL Eos # (Auto) 0.4 (0.0-0.7) 10^3/uL Baso # (Auto) 0.0 (0.0-0.1) 10^3/uL Absolute Nucleated RBC 0.00 x10^3/uL Nucleated RBC % 0.0 /100WBC Sodium 135 (135-145) mmol/L Potassium 4.2 (3.5-5.0) mmol/L Chloride 103 (101-111) mmol/L Carbon Dioxide 25 (21-32) mmol/L Anion Gap 7.0 (6-13) BUN 15 (6-20) mg/dL Creatinine 0.9 (0.4-1.0) mg/dL Estimated GFR (MDRD) 61 L (>89) Glucose 121 H (70-100) mg/dL Calcium 8.2 L (8.5-10.3) mg/dL Phosphorus 3.6 (2.5-4.6) mg/dL Magnesium 1.9 (1.7-2.8) mg/dL - Diagnostic Imaging Diagnostic Imaging Comments: XR (post op): Hip endoprosthesis in place. Hp joint reduced. - Other Results/Comments Other Results/Comments: EXAM: Dressing intact. Mild pain with hip rotation. Abductor pillow in place. Moves toes ok. Sensation intact. Good cap filling Assessment/Plan - Problem List (1) Femoral neck fracture Impression: Satis post op PLAN: Mobilize as tolerated. Qualifiers: Encounter type: subsequent encounter Fracture type: closed Laterality: left Qualified Code(s): S72.002A - Fracture of unspecified part of neck of left femur, initial encounter for closed fracture
[2020-08-07] MEDS: KETOROLAC 30 MG/ML VIAL IVP PRN ×2 (16:07→22:27)
[2020-08-08] MEDS: MORPHINE 2 MG/ML CARPUJECT IVP PRN ×6 (00:04→20:09)
[2020-08-08] MEDS: SODIUM CHLORIDE FLUSH 0.9% 10 ML SYRINGE IVP SCH ×5 (01:30→16:57)
[2020-08-08] MEDS: SODIUM CHLORIDE 0.9% 1,000 ML IV SCH ×3 (04:49→15:32)
[2020-08-08 05:25] LABS: BASOPHILS # (AUTO) 0.1 10^3/uL (0.0-0.1); BASOPHILS % (AUTO) 0.4 %; EOSINOPHILS # (AUTO) 0.7 10^3/uL (0.0-0.7); EOSINOPHILS % (AUTO) 5.1 %; HGB - HEMOGLOBIN 8.5 g/dL (12.0-16.0); LYMPHOCYTES # (AUTO) 1.1 10^3/uL (1.5-3.5); LYMPHOCYTES % (AUTO) 8.1 %; MEAN CORPUSCULAR HEMOGLOBIN 26.1 pg (27.0-31.0); MEAN CORPUSCULAR HGB CONC 31.3 g/dL (32.0-36.0); MEAN CORPUSCULAR VOLUME 83.4 fL (81.0-99.0); MEAN PLATELET VOLUME 9.6 fL (7.9-10.8); MONOCYTES # (AUTO) 0.8 10^3/uL (0.0-1.0); MONOCYTES % (AUTO) 5.8 %; NEUTROPHILS # (AUTO) 11.1 10^3/uL (1.5-6.6); PLT - PLATELET COUNT 352 10^3/uL (130-450); RED BLOOD COUNT 3.26 10^6/uL (4.20-5.40); RED CELL DISTRIBUTION WIDTH 15.6 % (12.0-15.0); WHITE BLOOD COUNT 13.9 x10^3/uL (4.8-10.8)
[2020-08-08 05:35] LABS: CREATININE 0.7 mg/dL (0.4-1.0); MAGNESIUM 1.9 mg/dL (1.7-2.8); PHOSPHORUS 3.4 mg/dL (2.5-4.6)
[2020-08-08] MEDS ORDERED: cefTRIAXone 1 GM VIAL IVP SCH (09:00)
[2020-08-08] MEDS ORDERED: AZITHROMYCIN INJ 500 MG in SODIUM CHLORIDE 0.9% 250 ML IV SCH (09:00)
--- NOTE | 2020-08-08 09:06 | PROVIDER PROGRESS NOTE ---
Subjective - Prog Note Date Prog Note Date: 08/08/20 Prog Note Time: 09:03 - Subjective Pt reports feeling: Improved (Less pain) Objective - Vital Signs/Intake & Output Intake & Output: Intake & Output 08/05/20 08/06/20 08/07/20 08/08/20 23:59 23:59 23:59 23:59 Intake Total 1450 3588.333 1000 Output Total 200 700 0 Balance 1250 2888.333 1000 - Lab Results Fish Bones: 08/08/20 04:55 08/08/20 04:55 Other Labs: Lab Results x24hrs 08/08/20 08/08/20 Range/Units 04:55 04:55 WBC 13.9 H (4.8-10.8) x10^3/uL RBC 3.26 L (4.20-5.40) 10^6/uL Hgb 8.5 L (12.0-16.0) g/dL Hct 27.2 L (37.0-47.0) % MCV 83.4 (81.0-99.0) fL MCH 26.1 L (27.0-31.0) pg MCHC 31.3 L (32.0-36.0) g/dL RDW 15.6 H (12.0-15.0) % Plt Count 352 (130-450) 10^3/uL MPV 9.6 (7.9-10.8) fL Neut # (Auto) 11.1 H (1.5-6.6) 10^3/uL Lymph # (Auto) 1.1 L (1.5-3.5) 10^3/uL [place] # (Auto) 0.8 (0.0-1.0) 10^3/uL Eos # (Auto) 0.7 (0.0-0.7) 10^3/uL Baso # (Auto) 0.1 (0.0-0.1) 10^3/uL Absolute Nucleated RBC 0.00 x10^3/uL Nucleated RBC % 0.0 /100WBC Sodium 134 L (135-145) mmol/L Potassium 3.7 (3.5-5.0) mmol/L Chloride 104 (101-111) mmol/L Carbon Dioxide 23 (21-32) mmol/L Anion Gap 7.0 (6-13) BUN 14 (6-20) mg/dL Creatinine 0.7 (0.4-1.0) mg/dL Estimated GFR (MDRD) 82 L (>89) Glucose 111 H (70-100) mg/dL Calcium 8.0 L (8.5-10.3) mg/dL Phosphorus 3.4 (2.5-4.6) mg/dL Magnesium 1.9 (1.7-2.8) mg/dL - Other Results/Comments Other Results/Comments: EXAM: Dressing intact. Moves toes ok. Sensation ok. Good cap filling Assessment/Plan - Problem List (1) Femoral neck fracture Impression: Satis post op PLAN: Mobilize as tolerated. Total hip precautions. Dr. Ayon will cover for orthopedic issues from 08/09 on Qualifiers: Encounter type: subsequent encounter Fracture type: closed Laterality: left Qualified Code(s): S72.002A - Fracture of unspecified part of neck of left femur, initial encounter for closed fracture
[2020-08-08] MEDS: HYDROcod/ACETAM 5/325 MG TABLET PO PRN ×2 (09:07→16:56)
[2020-08-08] MEDS: ASPIRIN 325 MG TABLET PO SCH ×2 (09:08→16:57)
[2020-08-08] MEDS: MULTIVITAMIN W/MINERALS TABLET PO SCH (09:08)
[2020-08-08] MEDS: LACTOBACILLUS RHAMNOSUS GG CAPSULE PO SCH (09:08)
[2020-08-08] MEDS: polyethylene glycoL 3350 17 GM PACKET PO SCH (09:10)
[2020-08-08 09:40] LABS: BILIRUBIN,URINE NEGATIVE (NEGATIVE); GLUCOSE, URINE (UA) NEGATIVE (NEGATIVE); KETONES,URINE (UA) TRACE mg/dL (NEGATIVE); LEUKOCYTE ESTERASE, URINE NEGATIVE (NEGATIVE); NITRITE,URINE NEGATIVE (NEGATIVE); OCCULT BLOOD,URINE TRACE-LYSE (NEGATIVE); PH,URINE 5.5 PH (5.0-7.5); PROTEIN,URINE NEGATIVE (NEGATIVE); UROBILINOGEN,URINE 0.2 (NORMAL) E.U./dL (NORMAL)
[2020-08-08 09:43] LABS: CLARITY,URINE CLEAR (CLEAR)
[2020-08-08 09:51] LABS: BACTERIA,URINE Few /HPF (None Seen); SQUAMOUS EPITHELIAL CELL,UR FEW Squamous (<= Few)
[2020-08-08 09:52] LABS: MUCUS,URINE Moderate Strands
--- NOTE | 2020-08-08 18:22 | PROVIDER PROGRESS NOTE ---
Assessment/Plan - Problem List (1) Femoral neck fracture Qualifiers: Encounter type: subsequent encounter Fracture type: closed Laterality: left Qualified Code(s): S72.002A - Fracture of unspecified part of neck of left femur, initial encounter for closed fracture Assessment/Plan: pt Still report her pain is poor controlled. add Oxycodone 10mg Q6H PRN. Continue with aspirin 325 mg twice daily for DVT prophylaxis.Continue with PT and OT. (2) Mass of left lung Impression: Patient was already informed by Dr. Maher she had massive the left, I also discussed the image study result with pt as well. she understood She will need outpatient biopsy and follow-up with oncology. (3) Postoperative anemia Impression: Her hemoglobin has decreased postoperatively but there is no evidence of bleeding. MCV is 83. We will monitor her hemoglobin on a daily basis, check iron study, Continue with aspirin for DVT prophylaxis, start with iron pill for pt (4) Leukocytosis Impression: it is likely reactive in nature. pt has no fever, or chill. Her white count has improved from admission. There is been no obvious source of infection. We will continue to monitor and hold off on antibiotics. also order incentive spirometry to prevention of post-operation pneumonia - Current Meds Current Meds: Current Medications Generic Name Dose Route Start Last Admin Trade Name Freq PRN Reason Stop Dose Admin Acetaminophen 650 mg 08/06/20 08:52 08/06/20 18:33 Tylenol PO 650 mg Q4HR PRN Administration Pain 1 to 4 Hydrocodone Bitart/Acetaminophen 0.5 tab 08/06/20 19:42 08/08/20 16:56 [place] 5/325 PO 0.5 tab Q4HR PRN Administration PAIN Aspirin 325 mg 08/07/20 08:00 08/08/20 16:57 Jarred PO 325 mg BIDWM [facility]WA[facility] Administration Docusate Sodium 100 mg 08/06/20 17:12 08/08/20 09:08 Colace 100mg Capsule PO 100 mg BID PRN Administration Constipation Sodium Chloride 1,000 mls @ 75 mls/hr 08/08/20 08:13 08/08/20 15:32 Normal Saline 0.9% IV 75 mls/hr .[id number] [facility]WAIS Administration Ketorolac Tromethamine 30 mg 08/07/20 15:57 08/07/20 22:27 Toradol Inj (30mg) IVP 08/12/20 15:56 30 mg Q6HR PRN Administration PAIN Lactobacillus Rhamnosus 1 cap 08/08/20 09:00 08/08/20 09:08 Culturelle PO 1 cap DAILY [facility]WA[facility] Administration Morphine Sulfate 2 mg 08/06/20 08:52 08/08/20 17:51 Morphine (Carpuject) IVP 2 mg Q2HR PRN Administration Pain 8 to 10 Multivitamins/Minerals 1 tab 08/08/20 08:00 08/08/20 09:08 Theragran M PO 1 tab DAILYWM [facility] Administration Polyethylene Glycol 17 gm 08/08/20 09:00 08/08/20 09:10 Miralax PO Not Given DAILY [facility] Sodium Chloride 10 ml 08/06/20 17:00 08/08/20 16:57 Normal Saline Flush 0.9% IVP Not Given 0100,0900,1700 [facility] Sodium Chloride 10 ml 08/07/20 01:00 08/08/20 16:57 Normal Saline Flush 0.9% IVP Not Given 0100,0900,1700 AWAIS - Lab Result Fish Bone Diagrams: 08/08/20 04:55 08/08/20 04:55 - Additional Planning My Orders: My Active Orders 08/08/20 08:09 Incentive Spirometry - RT [RC] .TID 08/08/20 08:13 Sodium Chloride 0.9% [Normal Saline 0.9%] 1,000 ml IV 75 mls/hr 08/08/20 12:40 COVID-19 REFERENCE TEST Routine Subjective - Subjective Patient Reports: Feeling Better Objective Vital Signs: Vital Signs - 24 hr 08/07/20 08/08/20 08/08/20 23:49 09:23 11:37 Temperature 36.9 C 36.8 C Heart Rate Heart Rate [ 112 H Activity] Heart Rate [ 90 90 Brachial] Heart Rate [ 116 H Sitting] Heart Rate [ 102 H Supine] Respiratory 16 16 Rate Blood Pressure 112/80 [Activity] Blood Pressure 106/58 L 123/59 L [Right Brachial artery] Blood Pressure 134/65 H [Sitting] Blood Pressure 109/49 L [Supine] O2 Saturation 93 96 O2 Saturation [ 92 Activity] 08/08/20 08/08/20 13:02 15:52 Temperature 36.8 C 36.8 C Heart Rate 95 Heart Rate [ Activity] Heart Rate [ 95 Brachial] Heart Rate [ Sitting] Heart Rate [ Supine] Respiratory 16 20 Rate Blood Pressure [Activity] Blood Pressure 119/58 L [Right Brachial artery] Blood Pressure [Sitting] Blood Pressure [Supine] O2 Saturation 93 93 O2 Saturation [ Activity] Oxygen O2 Source Room air I&O (Last 24 Hrs): Intake and Output Totals x24h 08/06/20 08/07/20 08/08/20 23:59 23:59 23:59 Intake Total 1450 3588.333 2476.25 Output Total 200 700 600 Balance 1250 2888.333 1876.25 General: Alert, Oriented x3, Mild distress HEENT: Atraumatic Neck: Supple Lymphatic: no adenopathy Neuro: Alert, Non Focal, Oriented Times 3 Cardiovascular: Regular rate, Normal S1, Normal S2 Respiratory: Chest non-tender, Breath sounds nml Abdomen: Normal bowel sounds, Soft, No tenderness Extremities: Normal pulses - Results Results: Laboratory Results WBC 13.9 x10^3/uL (4.8-10.8) H 08/08/20 04:55 RBC 3.26 10^6/uL (4.20-5.40) L 08/08/20 04:55 Hgb 8.5 g/dL (12.0-16.0) L 08/08/20 04:55 Hct 27.2 % (37.0-47.0) L 08/08/20 04:55 MCV 83.4 fL (81.0-99.0) 08/08/20 04:55 MCH 26.1 pg (27.0-31.0) L 08/08/20 04:55 MCHC 31.3 g/dL (32.0-36.0) L 08/08/20 04:55 RDW 15.6 % (12.0-15.0) H 08/08/20 04:55 Plt Count 352 10^3/uL (130-450) 08/08/20 04:55 MPV 9.6 fL (7.9-10.8) 08/08/20 04:55 Neut # (Auto) 11.1 10^3/uL (1.5-6.6) H 08/08/20 04:55 Lymph # (Auto) 1.1 10^3/uL (1.5-3.5) L 08/08/20 04:55 Gray # (Auto) 0.8 10^3/uL (0.0-1.0) 08/08/20 04:55 Eos # (Auto) 0.7 10^3/uL (0.0-0.7) 08/08/20 04:55 Baso # (Auto) 0.1 10^3/uL (0.0-0.1) 08/08/20 04:55 Absolute Nucleated RBC 0.00 x10^3/uL 08/08/20 04:55 Nucleated RBC % 0.0 /100WBC 08/08/20 04:55 PT 14.1 secs (9.9-12.6) H 08/06/20 09:11 INR 1.3 (0.8-1.2) H 08/06/20 09:11 Sodium 134 mmol/L (135-145) L 08/08/20 04:55 Potassium 3.7 mmol/L (3.5-5.0) 08/08/20 04:55 Chloride 104 mmol/L (101-111) 08/08/20 04:55 Carbon Dioxide 23 mmol/L (21-32) 08/08/20 04:55 Anion Gap 7.0 (6-13) 08/08/20 04:55 BUN 14 mg/dL (6-20) 08/08/20 04:55 Creatinine 0.7 mg/dL (0.4-1.0) 08/08/20 04:55 Estimated GFR (MDRD) 82 (>89) L 08/08/20 04:55 Glucose 111 mg/dL (70-100) H 08/08/20 04:55 Calcium 8.0 mg/dL (8.5-10.3) L 08/08/20 04:55 Phosphorus 3.4 mg/dL (2.5-4.6) 08/08/20 04:55 Magnesium 1.9 mg/dL (1.7-2.8) 08/08/20 04:55 Total Bilirubin 0.4 mg/dL (0.2-1.0) 08/06/20 09:11 AST 21 IU/L (10-42) 08/06/20 09:11 ALT 15 IU/L (10-60) 08/06/20 09:11 Alkaline Phosphatase 73 IU/L (42-121) 08/06/20 09:11 Total Protein 7.3 g/dL (6.7-8.2) 08/06/20 09:11 Albumin 2.9 g/dL (3.2-5.5) L 08/06/20 09:11 Globulin 4.4 g/dL (2.1-4.2) H 08/06/20 09:11 Albumin/Globulin Ratio 0.7 (1.0-2.2) L 08/06/20 09:11 Lipase 24 U/L (22-51) 08/06/20 09:11 Urine Color YELLOW 08/08/20 08:54 Urine Clarity CLEAR (CLEAR) 08/08/20 08:54 Urine pH 5.5 PH (5.0-7.5) 08/08/20 08:54 Ur Specific [place] 1.025 (1.002-1.030) 08/08/20 08:54 Urine Protein NEGATIVE mg/dL (NEGATIVE) 08/08/20 08:54 Urine Glucose (UA) NEGATIVE mg/dL (NEGATIVE) 08/08/20 08:54 Urine Ketones TRACE mg/dL (NEGATIVE) 08/08/20 08:54 Urine Occult Blood TRACE-LYSE (NEGATIVE) 08/08/20 08:54 Urine Nitrite NEGATIVE (NEGATIVE) 08/08/20 08:54 Urine Bilirubin NEGATIVE (NEGATIVE) 08/08/20 08:54 Urine Urobilinogen 0.2 (NORMAL) E.U./dL (NORMAL) 08/08/20 08:54 Ur Leukocyte Esterase NEGATIVE (NEGATIVE) 08/08/20 08:54 Urine RBC NONE /HPF (0-5) 08/08/20 08:54 Urine WBC 0-3 /HPF (0-5) 08/08/20 08:54 Ur Squamous Epith Cells FEW Squamous (<= Few) 08/08/20 08:54 Urine Bacteria Few /HPF (None Seen) 08/08/20 08:54 Urine Casts 0-2 Fine Granular /LPF3-5 Hyaline Casts /LPF 08/08/20 08:54 Urine Casts 0-2 Fine Granular /LPF3-5 Hyaline Casts /LPF 08/08/20 08:54 Urine Mucus Moderate Strands 08/08/20 08:54 Urine Culture Comments NOT INDICATED 08/08/20 08:54 Blood Type A POSITIVE 08/06/20 11:15 Blood Type Recheck A POSITIVE 08/06/20 11:33 Antibody Screen NEGATIVE 08/06/20 11:15 - Procedures Procedures: Procedures EXCISION OF STOMACH, PYLORUS, ENDO, DIAGN (05/13/16) ABX Reporting Has patient been on IV antibiotics over the past 48 hours?: No Current Medications - Current Medications Current Medications: Active Medications Acetaminophen (Tylenol) 650 mg PO Q4HR PRN PRN Reason: Pain 1 to 4 Last Admin: 08/06/20 18:33 Dose: 650 mg Documented by: Acetaminophen (Tylenol) 650 - 975 mg PO Q4HR PRN PRN Reason: PAIN Aspirin (Jarred) 325 mg PO BIDWM [facility] Last Admin: 08/08/20 16:57 Dose: 325 mg Documented by: Docusate Sodium (Colace 100mg Capsule) 100 mg PO BID PRN PRN Reason: Constipation Last Admin: 08/08/20 09:08 Dose: 100 mg Documented by: Ferrous Sulfate (Feosol) 325 mg PO DAILYWM [facility] Sodium Chloride (Normal Saline 0.9%) 1,000 mls @ 75 mls/hr IV .[id number] [facility] Last Admin: 08/08/20 15:32 Dose: 75 mls/hr Documented by: Ketorolac Tromethamine (Toradol Inj (30mg)) 30 mg IVP Q6HR PRN PRN Reason: PAIN Stop: 08/12/20 15:56 Last Admin: 08/07/20 22:27 Dose: 30 mg Documented by: Lactobacillus Rhamnosus (Culturelle) 1 cap PO DAILY [facility] Last Admin: 08/08/20 09:08 Dose: 1 cap Documented by: Morphine Sulfate (Morphine (Carpuject)) 2 mg IVP Q2HR PRN PRN Reason: Pain 8 to 10 Last Admin: 08/08/20 17:51 Dose: 2 mg Documented by: Multivitamins/Minerals (Theragran M) 1 tab PO DAILYWM [facility] Last Admin: 08/08/20 09:08 Dose: 1 tab Documented by: Ondansetron HCl (Zofran Inj) 4 mg IVP Q6HR PRN PRN Reason: Nausea / Vomiting Oxycodone HCl (Roxicodone) 10 mg PO Q6HR PRN PRN Reason: PAIN Polyethylene Glycol (Miralax) 17 gm PO DAILY [facility] Last Admin: 08/08/20 09:10 Dose: Not Given Documented by: Senna (Senokot) 17.2 mg PO Q12H PRN PRN Reason: Constipation Sodium Chloride (Normal Saline Flush 0.9%) 10 ml IVP PRN PRN PRN Reason: NEEDED PER PROVIDER ORDERS Sodium Chloride (Normal Saline Flush 0.9%) 10 ml IVP 0100,0900,1700 [facility] Last Admin: 08/08/20 16:57 Dose: Not Given Documented by: Sodium Chloride (Normal Saline Flush 0.9%) 10 ml IVP 0100,0900,1700 [facility] Last Admin: 08/08/20 16:57 Dose: Not Given Documented by: Sodium Chloride (Normal Saline Flush 0.9%) 10 ml IVP PRN PRN PRN Reason: NEEDED PER PROVIDER ORDERS No Known Home Medications 08/07/20
[2020-08-08] MEDS ORDERED: HYDROcod/ACETAM 5/325 MG TABLET PO PRN (18:26)
[2020-08-08 18:57] LABS: ABSOLUTE RETICS # AUTO 0.056 10^6/uL (0.020-0.110); RED BLOOD COUNT 3.25 10^6/uL (4.20-5.40)
[2020-08-08] MEDS ORDERED: FERROUS SULFATE 325 MG TABLET PO SCH (19:00)
[2020-08-08 19:24] LABS: % IRON SATURATION 6 % (20-50); IRON 9 ug/dL (28-170); TOTAL IRON BINDING CAPACITY 155 ug/dL (250-450); TRANSFERRIN 111 mg/dL (192-382)
[2020-08-08 19:39] LABS: FERRITIN 143.4 ng/mL (11.0-306.8)
--- NOTE | 2020-08-08 21:17 | ADVANCE CARE PLANNING NOTE ---
Advance Care Planning - Planning Encounter Date: 08/08/20 Time: 21:12 Purpose: establish care goals At the daughter's request. Parties in Attendance: Daughter Sharmin, patient, Hospitalist Dr. Colvin Decisional Capacity of the Patient: intact, alert, but in pain from knee - Diagnosis for Encounter (1) Mass of left lung Summary: 75-year female who is an ex-smoker. She smoked for 35 to 40 years. She is recently fallen, mechanical fall, and suffered a left hip fracture. In the preoperative evaluation she was identified as having a lung mass on chest x-ray. Subsequent CT of the chest shows to be an enhancing mass within the left superior hilum extending into the left upper lobe along the bronchial vascular with enhancement of multiple airways and vessels. It seems to represent a combination of necrotic neoplasm and postobstructive atelectasis/consolidation. The central enhancing component is at least 4 x 6 cm maximum axial dimension and 6.4 cm craniocaudal dimension. There are numerous areas of wispy enhancement within the consolidation. Collapsed left upper lobe. Metastatic mediastinal nodes are present. Few areas of abnormal attenuation and subtle enhancement between the left first and second ribs near the apical lateral pleural surface are suspicious for chest wall invasion. MRI of the brain recommended to assess for intracranial metastatic disease. - Encounter Subjective/Patient's Story: She was and had 3 children. She is . 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 Unfortunately the 2007 financial crisis resulted in a downturn in her business, and eventual closing up shop. She had a dream of moving to [place] and opening up a design shop in [place]. But that was a nonstarter and that per regions were very unwell coming and she could not get a foot hold on the market and was unsuccessful at that. When her financial status became tenuous enough that she did not know if she could support her self in [facility], she came to live near her daughter Sharmin in [facility]. While she does have 2 sons that live in [place], one son wants nothing to do with her. The other son can tolerate her, but also really does not want to have the burden of taking care of his mother. She is an exceedingly critical individual. Daughter feels that mom may be a narcissistic personality disorder. That has created a relationship dynamic within the family where Sharmin has become the de facto caregiver for her mom. That was about 10 years ago. Sharmin then moved to the [place] about 5 years ago. Ms. Rea followed Sharmin to the [place] and initially lived in her own apartment in [place]. But that situation had its own social problems and the "landlady was crazy" and she ended up moving into an apartment here in [facility]. She was moved into the [place] apartment when she had her first back surgery. She been having increasing back pain, and left leg weakness. She had a kody foot drop. It had been getting increasingly difficult to ambulate with increasing back pain. 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 She underwent an unsuccessful back surgery in July 2019. This is when her children moved from her apartment in [place] to an apartment in [place]. The surgery was was done by Dr. Roth at [facility]. The left leg continue to be weak, still with back pain, increasing foot drop. She then underwent a second surgery with a second surgeon in March 2020. It was felt to be a simple "shaving of the bone" that was pinching her nerve. As well as a cage. That surgery has also been unsuccessful and she continues to have left leg pain, weakness. She says that when she walks with a walker the left leg kimberly out from underneath her. She is adamant that her problem is left knee pain and not her back or leg anymore. In any case she fell on her left side in May of this year. She wrenched her left knee and is been left with intermittent fierce left knee pain. She has been followed by her primary care provider. In addition to the left knee pain, she was complaining of left shoulder pain. She had pain underneath her scapula that radiated up to the shoulder, radiated around the back to the axilla and then around the front to underneath her left breast. Dr. Earl injected the left shoulder thinking that it was bursitis. There is no pain relief. She was in the process of getting evaluated for the left knee pain and to get an MRI this week. Unfortunately the patient fell, again, and suffered a left femur fracture. In the preoperative setting, she was identified as having a lung mass on chest x-ray. A CT of the chest shows probable neoplasm with metastatic disease to the mediastinum. The chest neoplasm also seems to be invading some of the rib cage which would be a reflection of why she is having the radicular component of her pain. She is not convinced that we are correct in our assessment. She feels that her upper back pain is from scoliosis. When I did describe scoliosis is disease that is with its onset in late teens and the developmental phase of life, causing decades of pain, she is not convinced. She says that she does her own research on [employer]. She would like to see pictures of the tumor because she is "a visual person" and really does not believe that she has tumor until she can see the picture. She also wants an MRI for her left knee. We have asked orthopedics to see her, and his focus is the left hip. He says that she can be seen for her knee in the outpatient setting. In discussing her life overall, she finds that life really has no more meaning. This feeling started about the time she lost her business, and could not realize her dream for [place], but was sharply brought into more clarity when when she lost many loved ones about 4 years ago. She lost her brother, a best friend, and other various people. Some of them a lingering from cancer with metastatic disease. Some had metastatic disease to brain. Watching them get treatment, live through that process, and then eventually in spite of treatment really had an impact on her. She is adamant she never wants chemo or radiation because of those deaths. On top of that, she finds herself not really having a reason to live. When I asked her if there is anything in her life that brings her ingris? Is there any person or thing that she looks forward to in her day? She remarks that her grandchildren sometimes bring her ingris. She thinks that may be, may be she would have liked to live long enough to see her granddaughter get . But she says that such a vague dream for down the road that it is not a realistic expectation on her part, self stated. Daughter is at the bedside as mom discusses this. When I asked Ms. Rea if her love for her children is something that she cherishes or brings ingris to her, she does not really feel that it does. The emotion she feels most about her children is that of being a burden. She does not want them to take care of her the way she saw her brother, and her friends be taking care of. She says that her daughter is not her peer. She is not a "pal that she can talk to". So she doesn't find comfort or ingris from that relationship even though it is "a good relationship." She laments that her left leg pain and disability has left her isolated in her apartment. She does not like to even go outside and sit in the Courtyard because there is not enough privacy. She also feels that her life in [facility] was a more "sophisticated life" and the people in this town are "farmers". She does not feel that she has much in common with them. As such, she has not made any friends here. The only people that she sees outside of her apartment would be her daughter, and occasionally her grandchildren. She does not like her son-in-law. She is not suicidal. But she readily admits that she has been unhappy for still very long she cannot remember the last time she was happy. As such, "what would be the point of seeking treatment for possible lung cancer and living longer" in an unhappy life? With the left leg weakness, she was isolated in her apartment. Used a walker for ambulation. She is able to dress herself, feed herself. She is a very picky eater, likes "organic" and really hated the food at the [facility] after her first back surgery and second back surgery. Daughter was able to negotiate a private refrigerator in the patient's room at [facility]. Daughter would fill that refrigerator on a daily basis. Once the patient was home, the daughter would fix small meals, and leave things for mom to eat in the fridge. Mom preferred simple things like cottage cheese or avocado. Daughter change the sheets, did laundry, tidied up the apartment. The patient was able to bathe herself, feed herself, but not chores. Financially, 1 of her sons takes care of all the finances and pays the bills. Daughter is the de facto DURABLE POWER OF PHYSICIAN CREDENTIALING SPECIALIST.Initially the daughter was going over almost every day. Then it went down to 5 days a week. Then 3 days a week. Daughter states that she does not know if she can keep the pace up. It is been very stressful to her. In her effort to try and make her mom happy, she is starting to realize that it is an uphill bang trying to make an unhappy person become happy. Objective/Medical Story: This is a 75-year-old female with chronic lower back pain who presents today after falling at home. She states she was attempting to get up off the toilet when she fell on the left side of her hip. She reports no syncope, lightheadedness, dizziness, chest pain, palpitations prior to the event. She reported left hip pain immediately after the fall. She states her left leg is normally weaker than her right and she has had chronic back pain issues. This has limited her mobility overall. She reports no fevers, chills, dysuria, urgency. She reports no history of stroke, diabetes, heart disease. She is unable to walk a flight of stairs due to her back pain but she reports no chest pain with activity. She reports she had 2 surgeries in the past year for her back and she tolerated the anesthesia well. In the emergency department, she was found to have a left femoral neck fracture. Chest x-ray was also concerning for a left upper lobe mass. A CT of the chest was obtained and this is concerning for malignancy. This was discussed with the patient. I did ask her regarding goals of care and she would like to be a DNR. - Past Medical History Cardiovascular: reports: None Respiratory: reports: None Endocrine/Autoimmune: reports: None GI: reports: GERD : reports: Incontinence HEENT: reports: Chronic sinusitis Psych: reports: None Musculoskeletal: reports: Chronic back pain Derm: reports: None In the postoperative setting, the patient has multiple complaints. However none of these complaints center around the work-up of her lung mass. She is adamant that she can only handle 1 thing at a time. As such the first thing she wants handled is her left knee pain and the collapse of her left knee when she tries to walk. She would like an MRI of the knee, MRI of the left foot. She also wants her thoracic back pain that wraps around underneath her scapula into her axilla and around the front to her breast addressed as well. She feels that she has scoliosis in her back and that the scoliosis needs to be fixed. Today she is postoperative day #2. Goals of Care: 1. She would like to focus on rehabilitation to get her leg stronger. She only wants to focus on 1 thing at a time because she is easily overwhelmed. 2. The next thing to then focused on is the left knee, its pain, and the fact that her left leg collapses under "knee pain". 3. She really does not know if she wants any treatment for her lung cancer. Because of that, she does not know if she wants to undergo even a interventional radiology procedure with a lung biopsy. She is willing to discuss taking a "pill" but refuses to undergo radiation or chemotherapy. 4. She is not clear yet about what her goals are with regards to end-of-life care. All she knows that she does not want to be a burden to her daughter, Sharmin. So she will have to think about that. 5. She wants to be DO NOT RESUSCITATE status 6. She wants to be able to discuss the big picture with Dr. Earl before she makes any decisions Plan: 1. We have offered her the idea of going to [facility] to get ongoing work-up of her lung tumor with interventional radiology as well as rehab for the left hip. She declines and would prefer to go to [facility]. [place] is "too far away". 2. She declines having her knee injected. Although Dr. Garcia felt it could be done in the outpatient setting, I was willing to do a knee film, inject the knee to give her some temporary pain relief. She does not want to do that. She is still adamant she wants an MRI of her left knee. She is adamant that she wants surgery to fix that presumed left knee meniscal tear, or back surgery to fix the "scoliosis" she has in her thoracic spine. Have explained that with the ongoing issue of a lung mass, orthopedic surgery may be reluctant to intervene in any surgical procedure. 3. Once she finishes rehab [facility], will sit down and with Dr. Earl what she would like her next steps to be. Whether she is willing to do interventional radiology biopsy, be seen for an opinion about treatment of the cancer? 4. I offered her staging work-up of her lung tumor with MRI of the brain, CT chest abdomen and pelvis and she declines. 5. Confirmed that she wants to continue DO NOT RESUSCITATE status. 6. Palliative care consultation in the outpatient setting to go concurrently with Dr. Earl's plan of care. 7. I have printed up various windows from the CT scan to demonstrate the lung mass at her request for her to view. At this time she is requesting to go to sleep and would like to look at the film views tomorrow. 8. I have asked Ms Rea to sit down and discuss with her sons and daughter what she would like for care for the next few months if she becomes more dependent. Daughter has already met with [facility] and is in the process of getting mom thru the [facility] program where home care is provided. I have asked Social work to meet with the daughter as well. Code Status: Do Not Attempt Resuscitation Time spent on advance care plannin minutes
[2020-08-08] MEDS: oxyCODONE 5 MG TABLET PO PRN (23:45)
[2020-08-09] MEDS: SODIUM CHLORIDE FLUSH 0.9% 10 ML SYRINGE IVP SCH ×4 (03:07→13:51)
[2020-08-09] MEDS: SODIUM CHLORIDE 0.9% 1,000 ML IV SCH ×2 (03:36→13:51)
[2020-08-09 05:44] LABS: BASOPHILS # (AUTO) 0.1 10^3/uL (0.0-0.1); BASOPHILS % (AUTO) 0.4 %; EOSINOPHILS # (AUTO) 0.7 10^3/uL (0.0-0.7); EOSINOPHILS % (AUTO) 5.7 %; HGB - HEMOGLOBIN 8.1 g/dL (12.0-16.0); LYMPHOCYTES # (AUTO) 1.3 10^3/uL (1.5-3.5); LYMPHOCYTES % (AUTO) 10.7 %; MEAN CORPUSCULAR HEMOGLOBIN 26.4 pg (27.0-31.0); MEAN CORPUSCULAR HGB CONC 32.1 g/dL (32.0-36.0); MEAN CORPUSCULAR VOLUME 82.1 fL (81.0-99.0); MEAN PLATELET VOLUME 10.6 fL (7.9-10.8); MONOCYTES # (AUTO) 0.6 10^3/uL (0.0-1.0); NEUTROPHILS # (AUTO) 9.7 10^3/uL (1.5-6.6); NEUTROPHILS % (AUTO) 77.6 %; PLT - PLATELET COUNT 325 10^3/uL (130-450); RED BLOOD COUNT 3.07 10^6/uL (4.20-5.40); RED CELL DISTRIBUTION WIDTH 15.6 % (12.0-15.0); WHITE BLOOD COUNT 12.6 x10^3/uL (4.8-10.8)
[2020-08-09 06:01] LABS: CALCIUM 7.7 mg/dL (8.5-10.3); CREATININE 0.7 mg/dL (0.4-1.0); MAGNESIUM 1.9 mg/dL (1.7-2.8); PHOSPHORUS 2.8 mg/dL (2.5-4.6)
[2020-08-09] MEDS: oxyCODONE 5 MG TABLET PO PRN ×3 (06:48→15:59)
[2020-08-09] MEDS ORDERED: FERROUS SULFATE 325 MG TABLET PO SCH (09:00)
[2020-08-09] MEDS: polyethylene glycoL 3350 17 GM PACKET PO SCH (09:19)
[2020-08-09] MEDS: LACTOBACILLUS RHAMNOSUS GG CAPSULE PO SCH (09:20)
[2020-08-09] MEDS: ASPIRIN 325 MG TABLET PO SCH (09:20)
[2020-08-09] MEDS: MULTIVITAMIN W/MINERALS TABLET PO SCH (09:20)
--- NOTE | 2020-08-09 09:21 | XRAY Report ---
PROCEDURE: Chest 1 View X-Ray INDICATIONS: sob TECHNIQUE: One view of the chest was acquired. COMPARISON: Chest@CT of chest dated 08/06/2020 FINDINGS: Surgical changes and devices: None. Lungs and pleura: No pleural effusions or pneumothorax. Large opacity in left upper lung field exten ding to left hilar region are seen unchanged from previous study and is consistent with patient's kno wn left upper lobe mass. Mediastinum: Mediastinal contours appear normal. Heart size is normal. Bones and chest wall: No suspicious bony lesions. Overlying soft tissues appear unremarkable. IMPRESSION: Large left upper lobe mass. No pleural effusion or pneumothorax. No significant changes from previous study. Reviewed by: Bernardino Issa MD on 08/09/2020 8:20 AM JAVAN Approved by: Bernardino Issa MD on 08/09/2020 8:20 AM AKDT Station ID: [id number]
[2020-08-09] MEDS: ACETAMINOPHEN 325 MG TABLET PO PRN (10:30)
--- NOTE | 2020-08-09 12:13 | Discharge Plan ---
"Discharge Plan for SNF / [facility] - Discharge Plan And Transition Orders Problem Reviewed?: Yes Disposition: 03 SNF DC/Xfer Condition: Poor Allergies and Adverse Reactions: Allergies Allergy/AdvReac Type Severity Reaction Status Date / Time Sulfa (Sulfonamide Allergy Unknown Verified 08/06/20 08:13 Antibiotics) Health Concerns: status post of left femur repair, lung mass Plan of Treatment: 1, d/c to [facility], continue PT/OT with pain control and DVT Prophylaxis, followup with orthopedics office in 2 weeks or early as needed. 2, followup with lung mass biopsy, and followup with oncologist. 3, followup with palliative care. Care Goals: stabilization and improvement of pt's medical conditions. Assessment: discussed the care plan with pt, pt understood. - SNF / [facility] Transition Orders Admit to (Facility): [facility] Under the care of (Name): Acosta Rodriguez Discharge Diagnosis: status post of left femoral neck fracture repair, mass of lung, postoperative anemia, Leukocytosis. Medicare Certification Statement: I certify that [facility] nursing home care is medically necessary on a continuing basis for any of the conditions for which she/he is receiving care during hospitalization. Notify PCP of admission and forward orders to primary provider for signature. Weight on admission and: Daily Call PCP immediately if weight increases by: 2 kg Other Notification Orders: Call PCP immediately if patient develops dyspnea, chest pain/tightness or edema. House Bowel Program: Yes Additional Bowel Program Orders: If no BM after 2 days, nurse may give M.O.M. 30ml PO PRN and/or ducolax Supp 1 MD and/or MATILDE 250mg P.O., and/or senna 1-2 tabs PO. On day 3 nurse may give repeat above order until residents constipation is resolved. Annual Influenza Vaccine (between Jul 09 and February 05): Yes Two-step PPD per [facility] [id number] or approved exception documents: Yes Treatments & Other Orders: 1, d/c to [facility], continue PT/OT with pain control and DVT Prophylaxis, followup with orthopedics office in 2 weeks or early as needed. 2, followup with lung mass biopsy, and followup with oncologist. 3, followup with palliative care. Oxygen Orders: 2 liter of O2 or as needed. Lab Tests or X-ray Orders: monitor HGB level in one week Medication Orders: PLEASE REFER TO THE DISCHARGE MEDICATION LIST. Insulin Orders?: No - Medications New Prescriptions: oxyCODONE [Roxicodone] 10 mg PO Q6HR PRN #30 tablet PRN Reason: Pain Aspirin [Jarred] 325 mg PO BIDWM #28 tablet Calcium Carbonate/Vitamin D3 [Calcium 500 mg-Vit D3 600 Unit] 1 each PO DAILY #30 tablet Ferrous Sulfate [Feosol] 325 mg PO DAILY #30 tablet Alendronate [Fosamax] 70 mg PO Q7D #2 tablet Multivitamin W/Minerals [Theragran M] 1 tab PO DAILYWM #30 tablet - Diet Type: Geriatric Texture: Regular Liquids: Thin May have monthly special meal: Yes - Therapies | Activity Therapy: Evaluation | Treat if indicated: PT, OT Rehabilitation Potential: Maximize functional status Activity: Activity as Tolerated"
[2020-08-09] MEDS ORDERED: BUPIVACAINE 0.5% PF 30 ML VIAL ONE (14:03)
[2020-08-09] MEDS ORDERED: LIDOCAINE 1%-EPI 1:100000 20 ML MDV ONE (14:03)
--- NOTE | 2020-08-09 14:13 | ANESTHESIA ---
Pre-Anesthesia VS, & Labs Vital Signs: Temp Pulse Resp BP Pulse Ox 37.3 C 90 20 119/58 L 98 08/09/20 07:55 08/09/20 07:55 08/09/20 07:55 08/09/20 07:55 08/09/20 07:55 Height: 5 ft 7 in Weight (kg): 71 kg Body Mass Index: 24.5 BMI Classification: Healthy weight - Lab Results Current Lab Results: Laboratory Tests 08/09/20 04:50: Sodium 135, Potassium 3.5, Chloride 106, Carbon Dioxide 21, Anion Gap 8.0, BUN 13, Creatinine 0.7, Estimated GFR (MDRD) 82 L, Glucose 108 H, Calcium 7.7 L, Phosphorus 2.8, Magnesium 1.9 08/09/20 04:50: WBC 12.6 H, RBC 3.07 L, Hgb 8.1 L, Hct 25.2 L, MCV 82.1, MCH 26.4 L, MCHC 32.1, RDW 15.6 H, Plt Count 325, MPV 10.6, Neut # (Auto) 9.7 H, Lymph # (Auto) 1.3 L, Rutherford # (Auto) 0.6, Eos # (Auto) 0.7, Baso # (Auto) 0.1, Absolute Nucleated RBC 0.00, Nucleated RBC % 0.0 08/08/20 18:45: Lactate Dehydrogenase 128 08/08/20 18:45: Ferritin 143.4, Vitamin B12 1070 H 08/08/20 18:45: Iron 9 L, TIBC 155 L, % Saturation 6 L, Transferrin 111 L 08/08/20 18:45: RBC 3.25 L, Reticulocyte % (Auto) 1.72, Absolute Retic 0.056 08/08/20 04:55: Sodium 134 L, Potassium 3.7, Chloride 104, Carbon Dioxide 23, Anion Gap 7.0, BUN 14, Creatinine 0.7, Estimated GFR (MDRD) 82 L, Glucose 111 H, Calcium 8.0 L, Phosphorus 3.4, Magnesium 1.9 08/08/20 04:55: WBC 13.9 H, RBC 3.26 L, Hgb 8.5 L, Hct 27.2 L, MCV 83.4, MCH 26.1 L, MCHC 31.3 L, RDW 15.6 H, Plt Count 352, MPV 9.6, Neut # (Auto) 11.1 H, Lymph # (Auto) 1.1 L, Ruther[place] # (Auto) 0.8, Eos # (Auto) 0.7, Baso # (Auto) 0.1, Absolute Nucleated RBC 0.00, Nucleated RBC % 0.0 08/07/20 04:40: Sodium 135, Potassium 4.2, Chloride 103, Carbon Dioxide 25, Anion Gap 7.0, BUN 15, Creatinine 0.9, Estimated GFR (MDRD) 61 L, Glucose 121 H, Calcium 8.2 L, Phosphorus 3.6, Magnesium 1.9 08/07/20 04:40: WBC 13.2 H, RBC 3.36 L, Hgb 8.8 L, Hct 28.2 L, MCV 83.9, MCH 26.2 L, MCHC 31.2 L, RDW 15.6 H, Plt Count 360, MPV 9.4, Neut # (Auto) 11.1 H, Lymph # (Auto) 0.9 L, Rutherford # (Auto) 0.6, Eos # (Auto) 0.4, Baso # (Auto) 0.0, Absolute Nucleated RBC 0.00, Nucleated RBC % 0.0 08/06/20 11:33: Blood Type Recheck A POSITIVE 08/06/20 11:15: Blood Type A POSITIVE, Antibody Screen NEGATIVE 08/06/20 09:11: Sodium 133 L, Potassium 3.9, Chloride 96 L, Carbon Dioxide 26, Anion Gap 11.0, BUN 20, Creatinine 0.8, Estimated GFR (MDRD) 70 L, Glucose 128 H , Calcium 8.7, Total Bilirubin 0.4, AST 21, ALT 15, Alkaline Phosphatase 73, Total Protein 7.3, Albumin 2.9 L, Globulin 4.4 H, Albumin/Globulin Ratio 0.7 L, Lipase 24 08/06/20 09:11: PT 14.1 H, INR 1.3 H 08/06/20 09:11: WBC 17.3 H, RBC 3.99 L, Hgb 10.3 L, Hct 32.8 L, MCV 82.2, MCH 25.8 L, MCHC 31.4 L, RDW 15.6 H, Plt Count 460 H, MPV 9.4, Neut # (Auto) 15.3 H, Lymph # (Auto) 1.1 L, Rutherford # (Auto) 0.7, Eos # (Auto) 0.1, Baso # (Auto) 0.1, Absolute Nucleated RBC 0.00, Nucleated RBC % 0.0 Fish Bones: 08/09/20 04:50 08/09/20 04:50 Home Medications and Allergies Home Medications: Ambulatory Orders No Known Home Medications 08/07/20 Active Medications Acetaminophen (Tylenol) 650 mg PO Q4HR PRN PRN Reason: Pain 1 to 4 Last Admin: 08/09/20 10:30 Dose: 650 mg Documented by: Acetaminophen (Tylenol) 650 - 975 mg PO Q4HR PRN PRN Reason: PAIN Aspirin (Jarred) 325 mg PO BIDWM [facility] Last Admin: 08/09/20 09:20 Dose: 325 mg Documented by: Docusate Sodium (Colace 100mg Capsule) 100 mg PO BID PRN PRN Reason: Constipation Last Admin: 08/08/20 09:08 Dose: 100 mg Documented by: Ferrous Sulfate (Feosol) 325 mg PO BIDWM [facility] Last Admin: 08/09/20 09:20 Dose: 325 mg Documented by: Sodium Chloride (Normal Saline 0.9%) 1,000 mls @ 75 mls/hr IV .[id number] [facility] Last Admin: 08/09/20 13:51 Dose: 75 mls/hr Documented by: Ketorolac Tromethamine (Toradol Inj (30mg)) 30 mg IVP Q6HR PRN PRN Reason: PAIN Stop: 08/12/20 15:56 Last Admin: 08/07/20 22:27 Dose: 30 mg Documented by: Lactobacillus Rhamnosus (Culturelle) 1 cap PO DAILY [facility] Last Admin: 08/09/20 09:20 Dose: 1 cap Documented by: Morphine Sulfate (Morphine (Carpuject)) 2 mg IVP Q2HR PRN PRN Reason: Pain 8 to 10 Last Admin: 08/08/20 20:09 Dose: 2 mg Documented by: Multivitamins/Minerals (Theragran M) 1 tab PO DAILYWM [facility] Last Admin: 08/09/20 09:20 Dose: 1 tab Documented by: Ondansetron HCl (Zofran Inj) 4 mg IVP Q6HR PRN PRN Reason: Nausea / Vomiting Oxycodone HCl (Roxicodone) 10 mg PO Q6HR PRN PRN Reason: PAIN Last Admin: 08/09/20 10:31 Dose: 10 mg Documented by: Polyethylene Glycol (Miralax) 17 gm PO DAILY [facility] Last Admin: 08/09/20 09:19 Dose: 17 gm Documented by: Senna (Senokot) 17.2 mg PO Q12H PRN PRN Reason: Constipation Sodium Chloride (Normal Saline Flush 0.9%) 10 ml IVP PRN PRN PRN Reason: NEEDED PER PROVIDER ORDERS Sodium Chloride (Normal Saline Flush 0.9%) 10 ml IVP 0100,0900,1700 [facility] Last Admin: 08/09/20 13:51 Dose: Not Given Documented by: Sodium Chloride (Normal Saline Flush 0.9%) 10 ml IVP 0100,0900,1700 [facility] Last Admin: 08/09/20 13:51 Dose: Not Given Documented by: Sodium Chloride (Normal Saline Flush 0.9%) 10 ml IVP PRN PRN PRN Reason: NEEDED PER PROVIDER ORDERS No Known Home Medications 08/07/20 Allergies/Adverse Reactions: Allergies Allergy/AdvReac Type Severity Reaction Status Date / Time Sulfa (Sulfonamide Allergy Unknown Verified 08/06/20 08:13 Antibiotics) Anes History & Medical History - Anesthetic History Anesthesia Complications: reports: No previous complications, Post-Operative Nausea/Vomiting - Medical History Cardiovascular: reports: None Pulmonary: reports: None Gastrointestinal: reports: GERD Urinary: reports: Incontinence Musculoskeletal: reports: Chronic back pain Endocrine/Autoimmune: reports: None Skin: reports: None Smoking Status: Never smoker Other Past Medical History: Chronic L leg weakness from chronic back pain. C hest mass observed on CT scan this admit (to be worked up as out patient). - Surgical History General: Colonoscopy, Other Eyes Ears Nose Throat (EENT): Cataracts, Other Orthopedic: Spine surgery Exam Dental: WNL Plan ASA classification: 3-Severe systemic disease Is this case an emergency?: Yes
--- NOTE | 2020-08-09 14:29 | DISCHARGE SUMMARY ---
"Discharge Summary Admit Date: 08/06/20 Discharge Date: 08/09/20 Discharging Provider: Karson Bennett Primary Care Provider: Alen Reyes Condition at Discharge: Poor Discharge Disposition: SNF DC/Xfer Discharge Facility Name: [facility] - DIAGNOSES Discharge Diagnoses with Status of Each Condition: (1) Femoral neck fracture Patient had a left femoral fracture repair in the hospital by surgeon. Patient had a physical therapist and occupational therapist evaluation and treatment, patient was recommended to discharge to SNF. Oxycodone 10mg Q6H PRN, aspirin 325 mg twice daily for DVT prophylaxis, Osteoporosis prophylaxis medication was also prescribed for the patient. (2) Mass of left lung Patient was informed she had a left upper lobe large mass in her left lung. Patient was advised to follow-up with biopsy and oncologist As outpatient. Patient stated she understood and will follow up. (3) Postoperative anemia Patient hemoglobin is stable, HGB was 8.1. pt is asymptomatic for anemia. patient was also found to have iron deficiency, patient was prescribed iron pill. Patient have postoperative anemia. Patient was advised to follow-up to have lab monitor. (4) Leukocytosis it is likely reactive in nature and WBC trended down. pt has no fever, or chill. There is been no obvious source of infection. Patient is continuing to be monitored by - HPI History of Present Illness: refer from Dr. Maher's HPI on 08/06/2020 This is a 75-year-old female with chronic lower back pain who presents today after falling at home. She states she was attempting to get up off the toilet when she fell on the left side of her hip. She reports no syncope, lightheadedness, dizziness, chest pain, palpitations prior to the event. She reported left hip pain immediately after the fall. She states her left leg is normally weaker than her right and she has had chronic back pain issues. This has limited her mobility overall. She reports no fevers, chills, dysuria, urgency. She reports no history of stroke, diabetes, heart disease. She is unable to walk a flight of stairs due to her back pain but she reports no chest pain with activity. She reports she had 2 surgeries in the past year for her back and she tolerated the anesthesia well. In the emergency department, she was found to have a left femoral neck fracture. Chest x-ray was also concerning for a left upper lobe mass. A CT of the chest was obtained and this is concerning for malignancy. This was discussed with the patient. I did ask her regarding goals of care and she would like to be a DNR. - CONSULTS | PROCEDURES Consultations: Dr. Garcia Procedures: Cementless left hip bipolar endoprosthesis - HOSPITAL COURSE Hospital Course: Patient was admitted for evaluation of fall in the home, patient was found to have left hip fracture. Patient had left hip repair by orthopedic surgeon.The preoperation evaluation in patient's chest x-ray and CT of the chest, patient was found a left upper lung with large mass. Patient was notified this chest x- ray and CAT scan result. Patient was advised to follow-up with biopsy and follow-up with oncologist as out-pt. After patient had surgical repair of his left hip, patient continued to have physical therapist and Occupation therapist. Patient was recommended to be discharged in SNF continue for recovery from surgery. Patient also had x-ray of left knee without acute fracture Or dislocation. Patient was advised by orthopedic surgeon to have outpatient for evaluation of her left knee as needed. All patient and her daughter's questions were appropriately answered before discharge. Patient was discharged in stable condition to [facility]. - ALLERGIES Allergies/Adverse Reactions: Allergies Allergy/AdvReac Type Severity Reaction Status Date / Time Sulfa (Sulfonamide Allergy Unknown Verified 08/06/20 08:13 Antibiotics) - MEDICATIONS Home Medications: Ambulatory Orders Medication Instructions Recorded Confirmed Alendronate [Fosamax] 70 mg PO Q7D #2 tablet 08/09/20 Aspirin [Jarred] 325 mg PO BIDWM #28 tablet 08/09/20 Calcium Carbonate/Vitamin D3 1 each PO DAILY #30 tablet 08/09/20 [Calcium 500 mg-Vit D3 600 Unit] Ferrous Sulfate [Feosol] 325 mg PO DAILY #30 tablet 08/09/20 Multivitamin W/Minerals [Theragran 1 tab PO DAILYWM #30 tablet 08/09/20 M] oxyCODONE [Roxicodone] 10 mg PO Q6H PRN #30 tablet 08/09/20 - PHYSICAL EXAM AT DISCHARGE General Appearance: positive: No acute distress, Alert. negative: Lethargic Eyes Bilateral: positive: Normal inspection, PERRL, No lid inflammation ENT: positive: ENT inspection nml, No signs of dehydration. negative: Purulent nasal drainage Neck: positive: Nml inspection, Thyroid nml, Trachea midline. negative: Thyromegaly, Stiff neck, Tracheal deviation Respiratory: positive: Chest non-tender, No respiratory distress. negative: Wheezes, Rales, Rhonchi Cardiovascular: positive: Regular rate & rhythm, No murmur. negative: Irregularly irregular, Tachycardia, Bradycardia, Systolic murmur, Diastolic murmur Peripheral Pulses: positive: 2+ Abdomen: positive: Non-tender, Nml bowel sounds, No distention. negative: Tenderness, Guarding, Rebound Back: positive: Nml inspection. negative: CVA tenderness (R), CVA tenderness (L) Skin: positive: Color nml, No rash, Warm, Dry. negative: Cyanosis, Diaphoresis, Pallor Extremities: positive: Non-tender, Nml appearance. negative: Calf tenderness Neurologic/Psychiatric: positive: Oriented x3, Sensation nml, Mood/affect nml. negative: Weakness, Sensory loss, Facial droop, Slurred/abnml speech, Depressed mood/affect - LABS Result Diagrams: 08/09/20 04:50 08/09/20 04:50 - FOLLOW UP Follow Up: 1, d/c to [facility], continue PT/OT with pain control and DVT Prophylaxis, followup with orthopedics office in 2 weeks or early as needed, monitor CBC/HGB in one week or as early needed. 2, followup with lung mass biopsy, and followup with oncologist. 3, followup with palliative care. - TIME SPENT Time Spent in Discharge (Minutes): 30"
--- NOTE | 2020-08-09 15:17 | XRAY Report ---
PROCEDURE: Knee 2 View LT INDICATIONS: pain TECHNIQUE: 2 views of the left knee(s) were acquired. COMPARISON: None. FINDINGS: Bones: No fractures or dislocations. No suspicious bony lesions. 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 Soft tissues: No joint effusion. No suspicious soft tissue calcifications. IMPRESSION: No visualized acute fracture or dislocation. However, occult injury cannot be excluded. Recommend short interval imaging follow-up in 7-10 days as clinically indicated for additional evalua tion. Reviewed by: Catarina Gibbs MD on 08/09/2020 3:16 PM PDT Approved by: Catarina Gibbs MD on 08/09/2020 3:16 PM PDT Station ID: [id number]
[2020-08-09] MEDS ORDERED: MIDAZOLAM 2 MG/2 ML VIAL IVP ONE (16:34)
[2020-08-09] MEDS ORDERED: ACETAMINOPHEN 1,000 MG/100 ML 100 ML IV ONE (16:34)
[2020-08-09] MEDS ORDERED: PHENYLEPHRINE 10 MG/ML VIAL IV ONE (16:34)
[2020-08-09] MEDS ORDERED: fentaNYL 100 MCG/2 ML VIAL IVP ONE (16:34)
[2020-08-09] MEDS ORDERED: LIDOCAINE-MPF 2% 5 ML VIAL IM ONE (16:34)
[2020-08-09] MEDS ORDERED: PROPOFOL 200 MG/20 ML VIAL IVP ONE (16:34)
[2020-08-09 16:46] VITALS: BP 119/60
== END 2020-08-09 16:35 | DRG 522 ==
LOC: EDUNIT# → ED 08:02 → MS2 08:52
PROVIDERS: ADMIT Internal Medicine; ATTEND Nurse Practitioner Gerontology
PROC: 0SRS01A Replacement of Left Hip Joint, Femoral Surface with Metal Synthetic Substitute, Uncemented, Open Approach (ICD-10-PCS; principal; 2020-08-06 15:00)
DX: S72.002A Fracture of unspecified part of neck of left femur, initial encounter for closed fracture (principal); S72.012A Unspecified intracapsular fracture of left femur, initial encounter for closed fracture; W18.11XA Fall from or off toilet without subsequent striking against object, initial encounter; S50.00XA Contusion of unspecified elbow, initial encounter; Y92.012 Bathroom of single-family (private) house as the place of occurrence of the external cause; R91.8 Other nonspecific abnormal finding of lung field; D64.9 Anemia, unspecified; E61.1 Iron deficiency; D72.829 Elevated white blood cell count, unspecified; Z87.891 Personal history of nicotine dependence; M79.605 Pain in left leg; R53.1 Weakness; M54.9 Dorsalgia, unspecified; M25.562 Pain in left knee; Z91.81 History of falling; Z66 Do not resuscitate; G89.29 Other chronic pain; Z20.828 Contact with and (suspected) exposure to other viral communicable diseases
CPT/HCPCS: 36415; 71045; 71260; 73501; 73502; 73560; 80048; 80053; 81001; 82607; 82728; 83540; 83615; 83690; 83735; 84100; 84466; 85025; 85045; 85610; 86850; 86900; 86901; 93005; 96374; 97110; 97162; 97166; 97530; 99285; A9270; J0131; J1170; J7120; Q9967; U0004; 87086

== ENCOUNTER 2020-08-09 16:40 | Outpatient (CLI) | payer MEDICARE, OTHER | END 2020-08-09 16:41 | LOC: EMS 16:40 | PROVIDERS: ATTEND Surgery | DX: S72.002D Fracture of unspecified part of neck of left femur, subsequent encounter for closed fracture with routine healing (principal); Z74.01 Bed confinement status; W19.XXXD Unspecified fall, subsequent encounter | CPT/HCPCS: A0425; A0428 ==

== ENCOUNTER 2020-08-18 15:25 | Outpatient (CLI) | payer MEDICARE, OTHER ==
[2020-08-18 16:08] LABS: BASOPHILS # (AUTO) 0.1 10^3/uL (0.0-0.1); BASOPHILS % (AUTO) 0.4 %; EOSINOPHILS # (AUTO) 0.6 10^3/uL (0.0-0.7); EOSINOPHILS % (AUTO) 4.3 %; HGB - HEMOGLOBIN 9.3 g/dL (12.0-16.0); LYMPHOCYTES # (AUTO) 1.7 10^3/uL (1.5-3.5); LYMPHOCYTES % (AUTO) 11.4 %; MEAN CORPUSCULAR HEMOGLOBIN 25.3 pg (27.0-31.0); MEAN CORPUSCULAR HGB CONC 30.3 g/dL (32.0-36.0); MEAN CORPUSCULAR VOLUME 83.4 fL (81.0-99.0); MEAN PLATELET VOLUME 9.5 fL (7.9-10.8); MONOCYTES # (AUTO) 0.9 10^3/uL (0.0-1.0); MONOCYTES % (AUTO) 5.7 %; NEUTROPHILS # (AUTO) 11.4 10^3/uL (1.5-6.6); NEUTROPHILS % (AUTO) 77.5 %; PLT - PLATELET COUNT 627 10^3/uL (130-450); RED BLOOD COUNT 3.68 10^6/uL (4.20-5.40); RED CELL DISTRIBUTION WIDTH 16.3 % (12.0-15.0); WHITE BLOOD COUNT 14.8 x10^3/uL (4.8-10.8)
[2020-08-18 16:14] LABS: CALCIUM 8.6 mg/dL (8.5-10.3); CREATININE 0.8 mg/dL (0.4-1.0)
== END 2020-08-18 23:59 | disposition home or self-care (01) ==
LOC: LAB.R 15:25
DX: D72.824 Basophilia (principal)
CPT/HCPCS: 80048; 85025

== ENCOUNTER 2020-08-21 15:45 | Outpatient (CLI) | payer MEDICARE, OTHER ==
[2020-08-21 19:23] LABS: BASOPHILS # (AUTO) 0.1 10^3/uL (0.0-0.1); BASOPHILS % (AUTO) 0.6 %; EOSINOPHILS # (AUTO) 0.6 10^3/uL (0.0-0.7); EOSINOPHILS % (AUTO) 4.5 %; HGB - HEMOGLOBIN 9.5 g/dL (12.0-16.0); LYMPHOCYTES % (AUTO) 15.7 %; MEAN CORPUSCULAR HEMOGLOBIN 25.5 pg (27.0-31.0); MEAN CORPUSCULAR HGB CONC 30.1 g/dL (32.0-36.0); MEAN CORPUSCULAR VOLUME 84.9 fL (81.0-99.0); MEAN PLATELET VOLUME 9.7 fL (7.9-10.8); MONOCYTES # (AUTO) 0.8 10^3/uL (0.0-1.0); MONOCYTES % (AUTO) 6.2 %; NEUTROPHILS % (AUTO) 72.4 %; PLT - PLATELET COUNT 708 10^3/uL (130-450); RED BLOOD COUNT 3.72 10^6/uL (4.20-5.40); RED CELL DISTRIBUTION WIDTH 16.3 % (12.0-15.0); WHITE BLOOD COUNT 12.5 x10^3/uL (4.8-10.8)
== END 2020-08-21 23:59 | disposition home or self-care (01) ==
LOC: LAB.R 15:45
DX: D64.9 Anemia, unspecified (principal); D72.829 Elevated white blood cell count, unspecified; R52 Pain, unspecified
CPT/HCPCS: 82728; 84550; 85025; 85651

== ENCOUNTER 2020-09-02 12:15 | Outpatient (CLI) | payer MEDICARE, OTHER ==
[2020-09-02 12:47] LABS: BASOPHILS # (AUTO) 0.1 10^3/uL (0.0-0.1); BASOPHILS % (AUTO) 0.7 %; EOSINOPHILS # (AUTO) 0.7 10^3/uL (0.0-0.7); HGB - HEMOGLOBIN 10.5 g/dL (12.0-16.0); LYMPHOCYTES # (AUTO) 2.2 10^3/uL (1.5-3.5); MEAN CORPUSCULAR HEMOGLOBIN 25.2 pg (27.0-31.0); MEAN CORPUSCULAR HGB CONC 30.1 g/dL (32.0-36.0); MEAN CORPUSCULAR VOLUME 83.9 fL (81.0-99.0); MEAN PLATELET VOLUME 9.8 fL (7.9-10.8); MONOCYTES # (AUTO) 0.7 10^3/uL (0.0-1.0); MONOCYTES % (AUTO) 6.3 %; NEUTROPHILS # (AUTO) 7.7 10^3/uL (1.5-6.6); NEUTROPHILS % (AUTO) 67.5 %; PLT - PLATELET COUNT 498 10^3/uL (130-450); RED BLOOD COUNT 4.16 10^6/uL (4.20-5.40); RED CELL DISTRIBUTION WIDTH 16.7 % (12.0-15.0); WHITE BLOOD COUNT 11.4 x10^3/uL (4.8-10.8)
== END 2020-09-02 23:59 | disposition home or self-care (01) ==
LOC: LAB.R 12:15
DX: R91.8 Other nonspecific abnormal finding of lung field (principal); D64.9 Anemia, unspecified; D72.829 Elevated white blood cell count, unspecified
CPT/HCPCS: 85025; 85651

== ENCOUNTER 2020-09-05 14:20 | Outpatient (CLI) | payer MEDICARE, OTHER ==
--- NOTE | 2020-09-05 17:21 | CONSULTATION NOTE ---
Palliative Care Consultation - Referral Referring Provider: Dr. Alen Ramsey Time of Visit: [id number] Referral setting: Group Home Facility Referral Reason: Lung Mass/Advanced Care planning - Information Sources Records reviewed: Previous records reviewed History/Review of Systems obtained from: Patient, Nursing Exam limitations: No limitations - History of Present Illness Brief History of Present Illness: This is a 75-year-old female who is seen and evaluated today at [facility] for initial palliative care consultation due to new finding of a left upper lobe mass and advance care planning. The patient has undergone a series of unfortunate events. She has a longstanding history of spinal stenosis with 2 surgeries one performed, July 2019 and the second performed in January 2020. 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 She is status post hospitalization after she sustained a fall within her apartment resulting in a left hip fracture. She underwent a left hemiarthroplasty on 08/06/2020. She is presently undergoing rehabilitation services at [facility]. She is presently walking from her bed to the door across the d[place] with the use of a wheelchair for support. While at home in her own apartment she reports that she had been furniture surfing to get around her home. The pain that she presently has is greatest to her left foot. Is slowly improving but initially she reports that it felt like her left foot was being cut with glass when she put weight upon it. She is presently receiving Percocet for pain. She does report that she does use a simple AFO for her left foot that provide support and she is supposed to be getting evaluated for a custom AFO for her left foot drop. Incidentally, on chest x-ray there was noted to be a lesion and a CT scan was performed. Given the patient's past history of tobacco abuse it this mass is concerning for malignancy. She has had a consultation with [facility] pulmonology and she is scheduled for a bronchoscopy and biopsy on 09/10 to determine next steps. Of note, the patient reports a longstanding history of sinusitis. She has been residing in her present apartment for approximately 2 years. Prior to relocating to [facility] she was residing in [place]. She does wonder about her environment in her apartment given it was built in the 1950s and wonders if she has had any exposure to mold or any other environmental agents that would contribute to the findings of this lesion on imaging. The patient does report to some depressive symptoms due to isolation within her apartment on the onset of the coronavirus as it was just "me, Ferdinand, and my d tk." She denies any treatment for depression or anxiety in the past. She does report Anxiety symptoms in the past which resolved around particular instances, appropriately so. Since transitioning to the nursing facility for rehabilitation her mood has uplifted. However, she does report since January 2020 she has had some noted weight loss. She does report that she has to try to eat small, frequent snacks or meals otherwise she has abdominal discomfort if this is not performed. The patient is seen sitting up in bed in her private room, no acute distress and is quite engaged and articulate. 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 (HRT) : reports: Incontinence HEENT: reports: Chronic sinusitis Psych: reports: None Musculoskeletal: reports: Chronic back pain Derm: reports: None MRSA Hx?: No - Past Surgical History General: reports: Colonoscopy, Other (right inguinal herniorrhaphy) Ortho: reports: Spine surgery (Spinal laminectomy x 2), Other (Left hip arthroplasty for subcapital fracture 07/2020) /SUPERVISOR PHOSPHORIC ACID: reports: Other (Breast biopsy x 2) HEENT: reports: Cataracts, Other (Multiple sinus surgeries; left corneal transplant) - Substance History Use: Uses substance without health or social issues: NONE (Former tobacco use) Social History - Living Situation Living arrangement: At home Living Situation: Alone Support System: Prior to her presents today at [facility] for rehabilitation at the nursing facility, the patient [place]. She is . She spent much of her adult life in [place] ([place] and [facility]). 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 She has 3 children and rates them as a single mother. 2 sons are in [place] and her daughter is residing on [facility]. Since January 2020 the patient's daughter has provided assistance with groceries and was coming to the home 3 times per week. The patient has been residing in her apartment for approximately 2 years after relocating to [facility] from [place]. Family History - Family History Family History: Mother: , Father: Family History Comment/Other: Mother on hospice due to lung cancer Medications/Allergies - Medications Home Medications: Ambulatory Orders Medication Instructions Recorded Confirmed Alendronate [Fosamax] 70 mg PO Q7D #2 tablet 08/09/20 09/05/20 Aspirin [Jarred] 325 mg PO BIDWM #28 tablet MDD on 08/09/20 09/05/20 hold until 09/11 Acetaminophen [Tylenol] 650 mg PO Q8H PRN 09/05/20 09/05/20 Bisacodyl Supp [Dulcolax Supp] 10 mg [place] DAILY PRN MDD if senna 09/05/20 09/05/20 not effective Calcium Carbonate/Vitamin D3 1 tab PO DAILY 09/05/20 09/05/20 [Oyster Shell 500-Vit D3 200 Pk] Capasicin 0.1% 1 applic TP BID MDD b/l knees 09/05/20 Magnesium Hydroxide [Milk of 30 ml PO DAILY PRN MDD if no BM in 09/05/20 09/05/20 Magnesia] 2 days Montelukast [Singulair] 10 mg PO QPM 09/05/20 09/05/20 Multivitamin [Daily Multiple 1 tab PO DAILY 09/05/20 09/05/20 Vitamin] Oxycodone HCl/Acetaminophen 1 tab PO Q6HR PRN 09/05/20 09/05/20 [Oxycodone-Acetaminophen 10-325] Senna [Senokot] 1 tab .ROUTE BID PRN 09/05/20 09/05/20 polyethylene glycoL 3350 [Miralax] 17 g PO BID 09/05/20 09/05/20 - Allergies Allergies/Adverse Reactions: Allergies Allergy/AdvReac Type Severity Reaction Status Date / Time Sulfa (Sulfonamide Allergy Unknown Verified 08/06/20 08:13 Antibiotics) Review of Systems - Constitutional Constitutional: reports: Fatigue, Weight loss (weight 145.8lb) - Eyes Eyes: reports: Corrective lenses - Ears, Nose & Throat Ears, Nose & Throat: denies: Hearing aids - Cardiovascular Cardiovascular: denies: Chest pain - Respiratory Respiratory: reports: Cough (due to nasal congestion in the AM). denies: Wheezing (has noticed improvement of breathing symptoms since being out of her home) - Gastrointestinal Gastrointestinal: reports: Constipation (controlled), Other (does not like the food at the facility and eats organic. Her daughter brings her healthy food choices and things that she enjoys eating.). denies: Vomiting - Genitourinary Genitourinary: denies: Dysuria - Musculoskeletal Musculoskeletal: reports: Back pain, Stiffness, Joint pain, Assistive devices, Transfer issues - Integumentary Integumentary: denies: Pruritis - Neurological Neurological: reports: General weakness, Other (left foot drop) - Psychiatric Psychiatric: denies: Depression (see HPI) - Endocrine Endocrine: denies: Diabetes type 2 - All Other Systems All Other Systems: reports: Reviewed and negative Physical Exam - Vital Signs Temperature: 36.3 C Pulse Rate: 82 O2 Saturation: 96 (on RA at rest) Blood Pressure: 100/50 (left wrist cuff; runs low typically) - Physical Exam General Appearance: positive: No acute distress, Alert, Other (sitting up in bed) Eyes Bilateral: positive: Other (+corrective lenses) ENT: positive: No signs of dehydration Neck: positive: Trachea midline Cardiovascular: positive: Regular rate & rhythm, No murmur Respiratory: positive: No respiratory distress, Breath sounds nml. negative: Wheezes Abdomen: positive: Non-tender, Soft, Nml bowel sounds Skin: positive: Pallor Extremities: positive: Pedal edema (Trace effusion to left knee) Neurologic/Psychiatric: positive: Oriented x3, Mood/affect nml, Weakness, Other (+left foot drop) Palliative Care - POLST Patient has POLST: Yes POLST Status: DNR Pain: Pain improved (see HPI) Tiredness/Fatigue: Mild (1-3) Nausea: None Anorexia: Mild (1-3) Dyspnea: None Depression: None Sleep: Sleeps well Constipation: Managed Performance Status: Patient is status post left hip hemiarthroplasty. Is able to ambulate short distances with assistive device. Prior to left hip HemiArthroplasty the patient was ambulatory within her home furniture surfing or using an assistive device. Is able to perform some activities of daily living independently such as meal prep with modifications to decrease exertional fatigue. PPS 50 to 60% - Palliative Care Discussion: In the last year the patient has undergone 3 major surgeries. The first being 2 laminectomies for her spinal stenosis that has resulted in a left foot drop. She is now sustained a fracture and subsequent repair to her left hip and is undergoing rehabilitation services at [facility] with the goal to return to her previous baseline function. The patient wishes to be able to continue at least, furniture surfing and use of her walker within her apartment. Now, she is faced with a new lesion noted on CT imaging to her left upper lung. It is suspicious for malignancy given her past history of tobacco use. However, the patient does have underlying irritants in her environment that cannot rule out other causes such as a fungus. The patient is scheduled for bronchoscopy with biopsy at [facility] on 09/10 to delineate the plan moving forward. The patient relays that if the diagnosis is cancer she is quite clear that she does not wish to be a burden on her daughter or family. She has witnessed many loved ones including her best friend from college, her ex- as well as her mother bang cancer and all that entails. This is not something that she wishes for herself. Impression and Recommendations - Palliative Care Impression: This is a 75-year-old female who has had the unfortunate of undergoing 3 surgeries in the last year and now has a new diagnosis of a left upper lobe mass. The patient is making progress in rehabilitation after a left hip fracture and repair with hemiarthroplasty in July 2020. The patient's ultimate desire is to be able to return home to at the very least, her previous functional status. At the present time the patient is at [facility] as she is waiting further diagnostic evaluation to determine the cause of her lung mass to delineate the path that she is going to take. Palliative care will continue to provide support status post bronchoscopy with biopsy with advanced care planning. Recommendations/Counseling Done: 1. Pulmonary mass. Left upper lobe. Incidental finding noted on imaging. Concern for malignancy versus fungus. Patient has a past history of tobacco abuse. She is pending bronchoscopy daily with biopsy at [facility] on 09/10. Follow-up after biopsy results for further delineation of plan of care. 2. Left hip fracture status post left hip hemiarthroplasty. Pain is slowly improving. Her aspirin therapy for DVT prophylaxis is presently on hold due to pending bronchoscopy with biopsy. Continue Fosamax. Continue Percocet 10 mg / 325 mg every 6 hours as needed for pain.Continue to work with one site PT and OT to optimize function with a goal to return to previous baseline status or above. Continue to be followed by on site medical staff for management. 3.Advance care planning. Patient has POLST in place as DN AR with comfort measures. The patient presently feels as if she is in limbo at the moment as she is awaiting further diagnostic testing with a bronchoscopy and biopsy on 09/10 to determine if the incidental lung mass noted on imaging is malignant. The patient is quite clear if malignancy were to be reported that she does not want to go the path of radiation and chemo as she has witnessed firsthand the side effects of multiple loved ones undergoing cancer treatment. The patient ultimately wants to be comfortable. We will need to further delineate goals of care and advance care planning revolving end-of-life if indeed the biopsy were to point towards malignancy. However, given the patient's environmental setting and recent chronic history of allergies and congestion due to her home environment it is not out of the remote possibility that a different underlying cause is due to the mass noted on imaging. Time Spent: F/u in 2-3 weeks after results of bronchoscopy or prn. Total time spent 60 minutes with greater than 50% of this spent in counseling and coordination of care with patient; review of palliative care philosophy; highlighting different decision making paths; examination of patient; review and symptom management and anticipatory guidance. Disclaimer: The chart note was formulated using voice recognition technology and unfortunately sound alike errors may occur.
== END 2020-09-05 14:21 | disposition home or self-care (01) ==
LOC: PC 14:20
PROVIDERS: ATTEND Nurse Practitioner Family
DX: Z51.5 Encounter for palliative care (principal); R91.8 Other nonspecific abnormal finding of lung field; S72.012D Unspecified intracapsular fracture of left femur, subsequent encounter for closed fracture with routine healing; M48.00 Spinal stenosis, site unspecified; M21.372 Foot drop, left foot; R63.4 Abnormal weight loss; Z79.899 Other long term (current) drug therapy; Z87.891 Personal history of nicotine dependence; Z87.09 Personal history of other diseases of the respiratory system; Z96.642 Presence of left artificial hip joint; Z91.81 History of falling; Z66 Do not resuscitate
CPT/HCPCS: 99306

== ENCOUNTER 2020-09-14 05:13 | Outpatient (CLI) | payer MEDICARE, OTHER | END 2020-09-14 05:14 | disposition critical access hospital (66) | LOC: EMS 05:13 | PROVIDERS: ATTEND Surgery | DX: M25.552 Pain in left hip (principal); Z96.642 Presence of left artificial hip joint ==

== ENCOUNTER 2020-09-14 05:19 | Emergency (ER) | payer MEDICARE, OTHER ==
[2020-09-14] MEDS ORDERED: MORPHINE 2 MG/ML CARPUJECT IVP STA (06:04)
[2020-09-14] MEDS ORDERED: HYDROmorphone 1 MG/ML CARPUJECT IVP STA ×3 (06:50→11:27)
[2020-09-14] MEDS ORDERED: ETOMIDATE 40 MG/20 ML VIAL IVP STA (07:31)
[2020-09-14] MEDS: PROPOFOL 200 MG/20 ML VIAL IVP STA ×2 (10:49→10:50)
--- NOTE | 2020-09-14 10:57 | ED Physician Documentation ---
History of Present Illness - Stated complaint Stated Complaint: L HIP PX - Chief complaint Chief Complaint: Ext Problem - History obtained from History obtained from: Patient - Additonal information Additional information: 75-year-old woman with recent left hip replacement presents with sudden onset left hip pain upon waking in the middle of the night. severe, aching, worse with movement, nonradiating, a/w hip deformity. Patient changed her orthopedic pillow to smaller size overnight and her hip came out during the night per her report. 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: Other HEENT: Cataracts, Other - Present Medications Home Medications: Ambulatory Orders Medication Instructions Recorded Confirmed Alendronate [Fosamax] 70 mg PO Q7D #2 tablet 08/09/20 09/05/20 Aspirin [Jarred] 325 mg PO BIDWM #28 tablet MDD on 08/09/20 09/05/20 hold until 09/11 Acetaminophen [Tylenol] 650 mg PO Q8H PRN 09/05/20 09/05/20 Bisacodyl Supp [Dulcolax Supp] 10 mg [place] DAILY PRN MDD if senna 09/05/20 09/05/20 not effective Calcium Carbonate/Vitamin D3 1 tab PO DAILY 09/05/20 09/05/20 [Oyster Shell 500-Vit D3 200 Pk] Capasicin 0.1% 1 applic TP BID MDD b/l knees 09/05/20 Magnesium Hydroxide [Milk of 30 ml PO DAILY PRN MDD if no BM in 09/05/2009/05 Magnesia] 2 days Montelukast [Singulair] 10 mg PO QPM 09/05/20 09/05/20 Multivitamin [Daily Multiple 1 tab PO DAILY 09/05/20 09/05/20 Vitamin] Oxycodone HCl/Acetaminophen 1 tab PO Q6HR PRN 09/05/20 09/05/20 [Oxycodone-Acetaminophen 10-325] Senna [Senokot] 1 tab .ROUTE BID PRN 09/05/20 09/05/20 polyethylene glycoL 3350 [Miralax] 17 g PO BID 09/05/20 09/05/20 - Allergies Allergies/Adverse Reactions: Allergies Allergy/AdvReac Type Severity Reaction Status Date / Time Sulfa (Sulfonamide Allergy Unknown Verified 08/06/20 08:13 Antibiotics) - Social History Does the pt smoke?: No Smoking Status: Never smoker Does the pt drink ETOH?: No Does the pt have substance abuse?: No - Immunizations Immunizations are current?: Yes Immunizations: TDAP current <10years - POLST Patient has POLST: Yes PD ED PE NORMAL - Vitals Vital signs reviewed: Yes - General General: Alert and oriented X 3 - HEENT HEENT: Atraumatic - Neck Neck: Supple, no meningeal sign - Cardiac Cardiac: RRR - Respiratory Respiratory: No respiratory distress, Clear bilaterally - Abdomen Abdomen: Non tender, Non distended - Female Female : Deferred - Rectal Rectal: Deferred - Back Back: No spinal TTP - Derm Derm: Normal color - Extremities Extremities: Other (L hip ttp and tender with rom ) - Neuro Neuro: Alert and oriented X 3 - Psych Psych: Normal mood, Normal affect Results - Vitals Vitals: Vital Signs - 24 hr 09/14/20 09/14/20 09/14/20 05:19 07:10 08:30 Temperature 36.6 C 36.6 C Heart Rate 94 98 95 Respiratory 18 18 18 Rate Blood Pressure 164/75 H 140/73 H 125/61 O2 Saturation 94 94 97 09/14/20 09/14/20 09/14/20 09:46 10:39 10:46 Temperature Heart Rate 96 98 94 Respiratory 17 20 24 Rate Blood Pressure 135/78 H 140/78 H 146/99 H O2 Saturation 100 95 97 09/14/20 10:52 Temperature Heart Rate 100 Respiratory 21 Rate Blood Pressure 136/76 H O2 Saturation 98 Oxygen O2 Source Nasal cannula Procedures - Reduction Body part reduced: Left, Hip, prosthetic Fracture or dislocation: Dislocation Anesthesia: Propofol Hip reduction technique: Allis - flex/pull/rotate Reduction aftercare: NV intact, Alignment improved, Patient tolerated well - Procedural sedation Sedation prep: Informed consent, Time out completed, Last meal (>12h), ASA 2 - mild disease Sedation medications: propofol Patient status during sedation: Responds to tactile, Vitals remained stable, Maintained airway, Recovered uneventfully Sedation recovery: Recovered uneventfully Time in sedation (Minutes): 20 PD MEDICAL DECISION MAKING - ED course Complexity details: reviewed results, d/w patient, d/w family
--- NOTE | 2020-09-14 11:02 | XRAY Report ---
PROCEDURE: Hip w/Pelvis 2-3V LT INDICATIONS: hip pain TECHNIQUE: AP pelvis with lateral view(s) of the bilateral hip(s). COMPARISON: 08/06/2020. FINDINGS: Bones: Status post total left hip arthroplasty with interval cephalad dislocation of the left hip art hroplasty which includes both the acetabular and femoral components. Small bony fragment noted along the lateral margin of the mid acetabular rim which may correlate with previously seen small bony frag ment adjacent to the left lateral ischium on comparison study. Femur appears intact. Remainder of the visualized osseous structures appear intact. Pelvic ring appears intact. No suspicious bony lesions . Soft tissues: The visualized bowel gas pattern is normal. No suspicious soft tissue calcifications. IMPRESSION: 1. Superiorly dislocated left hip arthroplasty as detailed above. 2. Ossific fragment noted over the lateral aspect of the mid acetabular rim, possibly representing a previously seen fragment adjacent to the left position on comparison study. No significant discrepancy with initial interpretation by overnight radiologist. Reviewed by: Dariel Gibson MD on 09/14/2020 10:01 AM [facility] Approved by: Dariel Gibson MD on 09/14/2020 10:01 AM [facility] Station ID: [id number]
--- NOTE | 2020-09-14 11:29 | ED Physician Documentation ---
ED Addendum - Addendum Addendum: 09/14/20 11:33 Prosthetic hip reduced with Dr. Mijares. Xray with no significant acute abnormalities. D/w ortho, Dr. Garcia. Recommend keeping the head of the bed below 70 degrees, limiting flexion of the hip, elevated toilet seats, large wedge pillow for lying in bed and sleeping. Does not recommend a knee immobilizer at this time. Daughter states that the patient is mostly in bed at [facility]. Patient and family counseled regarding signs and symptoms for which I believe and urgent re-evaluation would be necessary. Patient with good understanding of and agreement to plan and is comfortable going home at this time This document was made in part using voice recognition software. While efforts are made to proofread this document, sound alike and grammatical errors may occur. Departure - Departure Disposition: 01 Home, Self Care Clinical Impression: Dislocation of hip prosthesis Qualifiers: Encounter type: initial encounter Qualified Code(s): T84.029A - Dislocation of unspecified internal joint prosthesis, initial encounter; Z96.649 - Presence of unspecified artificial hip joint Condition: Good Instructions: ED Dislocation Hip Traumatic Redu Follow-Up: Alen Ramsey MD [Primary Care Provider] - Within 1 week Comments: Return if you worsen. Follow up with orthopedics in 1 week for repeat evaluation. Keep the head of bed below 70 degrees and limit any flexion of the hip. Use elevated toilet seats. use the large pillow for your legs when in bed. I spoke with Dr. Garcia today.
--- NOTE | 2020-09-14 11:30 | XRAY Report ---
PROCEDURE: Hip w/Pelvis 2-3V LT INDICATIONS: post reduction TECHNIQUE: AP pelvis with lateral view(s) of the left hip(s). COMPARISON: 09/14/2020. FINDINGS: Bones: Previously dislocated left total hip arthroplasty has been reduced back into normal alignment. Remainder of the visualized osseous structures appear intact. Surgical hardware prior lower lumbar s lisy fusion is again noted. Soft tissues: The visualized bowel gas pattern is normal. No suspicious soft tissue calcifications. IMPRESSION: Status post interval reduction of left hip arthroplasty back into normal alignment. Reviewed by: Dariel Gibson MD on 09/14/2020 10:29 AM [facility] Approved by: Dariel Gibson MD on 09/14/2020 10:29 AM [facility] Station ID: [id number]
[2020-09-14 12:16] VITALS: BP 128/70
[2020-09-14] MEDS ORDERED: oxyCODONE 5 MG TABLET PO STA (12:59)
== END 2020-09-14 13:10 | disposition home or self-care (01) ==
LOC: EDUNIT# → ED 05:19
DX: T84.021A Dislocation of internal left hip prosthesis, initial encounter (principal); Y79.2 Prosthetic and other implants, materials and accessory orthopedic devices associated with adverse incidents; Y92.092 Bedroom in other non-institutional residence as the place of occurrence of the external cause; Z79.82 Long term (current) use of aspirin; Z79.899 Other long term (current) drug therapy
CPT/HCPCS: 27257; 73502; 96374; 96375; 96376; 99152; 99284; A9270; J1170; 94770

== ENCOUNTER 2020-09-14 13:09 | Outpatient (CLI) | payer MEDICARE, OTHER | END 2020-09-14 13:10 | LOC: EMS 13:09 | PROVIDERS: ATTEND Surgery | DX: T84.021A Dislocation of internal left hip prosthesis, initial encounter (principal); Z74.01 Bed confinement status | CPT/HCPCS: A0425; A0427; A0428 ==

== ENCOUNTER 2020-09-16 13:38 | Outpatient (CLI) | payer MEDICARE, OTHER | END 2020-09-16 13:39 | disposition home or self-care (01) | LOC: EMS 13:38 | PROVIDERS: ATTEND Surgery | DX: M25.552 Pain in left hip (principal) ==

== ENCOUNTER 2020-09-16 14:11 | Emergency (ER) | payer MEDICARE, OTHER ==
--- NOTE | 2020-09-16 14:13 | ED Physician Documentation ---
PD HPI LOWER EXT INJURY - Stated complaint Stated Complaint: HIP PAIN - History obtained from History obtained from: Patient - History of Present Illness PD HPI LOW EXT INJURY LOCATION: Left, Hip Type of injury: Other (She had a hip dislocation 2 days ago and is month and a half post hip replacement for acute fracture. She had the dislocation reduced in the ER and sent back to SNF. She states her hip has continued to hurt since that time and is worse since last night. It now feels like it did when it was disloc). No: Fall, Twist Where injury occurred: Other (SNF) Timing - onset: Today, Last night Timing - details: Abrupt onset (2 days ago and was still hurting after seen in ER, but worse since last night rolling in bed. Does have abduction brace between legs for sleep.), Still present Improved by: Rest Worsened by: Moving Associated symptoms: No: Weakness, Numbness Contributing factors: No: Anticoagulated Similar symptoms before: Diagnosis (had hip fracture end of July, and dislocation of prosthesis 2 days ago.) Recently seen: Emergency Dept (2 days ago) Review of Systems Constitutional: denies: Fever Nose: denies: Rhinorrhea / runny nose, Congestion Throat: denies: Sore throat Respiratory: denies: Cough GI: reports: Constipation. 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: Other : Incontinence HEENT: Chronic sinusitis Psych: None Musculoskeletal: Chronic back pain Derm: None - Past Surgical History Past Surgical History: Yes General: Colonoscopy, Other Ortho: Spine surgery, Other /PATIENT CLERICAL ASSISTANT: Other HEENT: Cataracts, Other - Present Medications Home Medications: Ambulatory Orders Medication Instructions Recorded Confirmed Alendronate [Fosamax] 70 mg PO Q7D #2 tablet 08/09/20 09/05/20 Aspirin [Jarred] 325 mg PO BIDWM #28 tablet MDD on 08/09/20 09/05/20 hold until 09/11 Acetaminophen [Tylenol] 650 mg PO Q8H PRN 09/05/20 09/05/20 Bisacodyl Supp [Dulcolax Supp] 10 mg MD DAILY PRN MDD if senna 09/05/20 09/05/20 not effective Calcium Carbonate/Vitamin D3 1 tab PO DAILY 09/05/20 09/05/20 [Oyster Shell 500-Vit D3 200 Pk] Capasicin 0.1% 1 applic TP BID MDD b/l knees 09/05/20 Magnesium Hydroxide [Milk of 30 ml PO DAILY PRN MDD if no BM in 09/05/20 09/05/20 Magnesia] 2 days Montelukast [Singulair] 10 mg PO QPM 09/05/20 09/05/20 Multivitamin [Daily Multiple 1 tab PO DAILY 09/05/20 09/05/20 Vitamin] Oxycodone HCl/Acetaminophen 1 tab PO Q6HR PRN 09/05/20 09/05/20 [Oxycodone-Acetaminophen 10-325] Senna [Senokot] 1 tab .ROUTE BID PRN 09/05/20 09/05/20 polyethylene glycoL 3350 [Miralax] 17 g PO BID 09/05/20 09/05/20 - Allergies Allergies/Adverse Reactions: Allergies Allergy/AdvReac Type Severity Reaction Status Date / Time Sulfa (Sulfonamide Allergy Unknown Verified 09/16/20 14:13 Antibiotics) - Social History Does the pt smoke?: No Smoking Status: Never smoker Does the pt drink ETOH?: No Does the pt have substance abuse?: No - Immunizations Immunizations are current?: Yes Immunizations: TDAP current <10years - POLST Patient has POLST: Yes PD ED PE NORMAL - Vitals Vital signs reviewed: Yes - General General: Alert and oriented X 3, Well developed/nourished, Other (appears in pain) - HEENT HEENT: Atraumatic, Dentition benign, Other (able to open mouth widely. ) - Neck Neck: Supple, no meningeal sign, No adenopathy - Cardiac Cardiac: RRR, No murmur - Respiratory Respiratory: Clear bilaterally - Abdomen Abdomen: Soft, Non tender - Derm Derm: Normal color, Warm and dry - Extremities Extremities: No edema, No calf tenderness / cord, Other (left hip with pain on any slight movement. Left leg is shortened. ) - Neuro Neuro: Alert and oriented X 3, No motor deficit, Normal speech Results - Vitals Vitals: Vital Signs - 24 hr 09/16/20 09/16/20 09/16/20 14:14 15:57 16:33 Temperature 36.8 C Heart Rate 85 96 94 Respiratory 18 12 14 Rate Blood Pressure 154/70 H 104/52 L 119/57 L O2 Saturation 99 100 100 09/16/20 09/16/20 09/16/20 16:50 17:00 17:16 Temperature Heart Rate 90 70 96 Respiratory 18 20 12 Rate Blood Pressure 147/73 H 147/76 H 141/75 H O2 Saturation 100 99 98 Oxygen O2 Source Nasal cannula - Rads (name of study) left hip Radiology: Prelim report reviewed (dislocation superiorly), See rad report post reduction Radiology: Prelim report reviewed (anatomic successful reduction. ), See rad report Procedures - Reduction Body part reduced: Left, Hip, prosthetic Fracture or dislocation: Dislocation Anesthesia: Conscious sedation, Dilaudid, Propofol Hip reduction technique: Allis - flex/pull/rotate, Other (with asistance from Dr Gale.) Reduction aftercare: NV intact, Xray confirms reduction, Alignment improved, Splint applied, Patient tolerated well - Procedural sedation Sedation prep: Informed consent, Time out completed, Last meal (this morning), PE performed, ASA 2 - mild disease Sedation medications: dilaudid, propofol Patient status during sedation: Responds to tactile, Unresponsive, Vitals remained stable, Maintained airway, Recovered uneventfully Sedation recovery: Recovered uneventfully, Back to baseline PD MEDICAL DECISION MAKING - ED course Complexity details: considered differential, d/w patient, d/w family (daughter and pt request short term oleary due to pain of movement onto bedpan, etc at [facility]. We discussed pros and cons and they are preferring it. I emphasized the goal of short term (a week or such).), d/w java developer consultant (Dr. Gale was in ER evaluating another person, so assisted with the reduction.) Departure - Departure Disposition: 01 Home, Self Care Clinical Impression: Hip dislocation, left Qualifiers: Encounter type: initial encounter Qualified Code(s): S73.005A - Unspecified dislocation of left hip, initial encounter Condition: Stable Record reviewed to determine appropriate education?: Yes Instructions: ED Hip Replace Dislocation Reduc Follow-Up: Alen Ramsey MD [Primary Care Provider] - Ashwin Gale MD [Provider Admit Priv/Credential] - Comments: Use the abduction wedge as well as the knee immobilizer for the next several days until a different hip brace can be obtained. Contact Dr. Addition's office regarding ordering the hip brace. Continue your current medications. No physical therapy or such for the next 3 days at least. Progress activity based on your primary care and orthopedic input. The catheter will allow you to not have to use bedpan or get up to urinate. The goal of it should be short term (a week or so) to minimize chance of infection and irritation from that.
[2020-09-16] MEDS ORDERED: HYDROmorphone 1 MG/ML CARPUJECT IVP STA ×2 (14:38→15:47)
--- NOTE | 2020-09-16 15:42 | XRAY Report ---
PROCEDURE: Hip w/Pelvis 2-3V LT INDICATIONS: continued left hip pain TECHNIQUE: AP pelvis with lateral view(s) of the left hip(s). COMPARISON: 09/14/2020. FINDINGS: Bones: Patient is status post prior left hip arthroplasty. Again noted is superior dislocation at lef t hip joint. No definite fracture is seen. Pelvic ring appears intact. No suspicious bony lesions. P rior fusion of lower lumbar spine is again noted. Soft tissues: The visualized bowel gas pattern is normal. No suspicious soft tissue calcifications. 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 No definite fracture is seen. Reviewed by: Bernardino Issa MD on 09/16/2020 2:41 PM AKST Approved by: Bernardino Issa MD on 09/16/2020 2:41 PM AKST Station ID: [id number]
[2020-09-16] MEDS ORDERED: PROPOFOL 200 MG/20 ML VIAL IVP STA ×2 (16:08→17:05)
[2020-09-16] MEDS ORDERED: SODIUM CHLORIDE 0.9% 1,000 ML IV STA (16:08)
--- NOTE | 2020-09-16 17:41 | XRAY Report ---
PROCEDURE: Hip w/Pelvis 2-3V LT INDICATIONS: post reduction TECHNIQUE: AP pelvis with lateral view(s) of the bilateral hip(s). COMPARISON: Prereduction plain film imaging earlier today.. FINDINGS: Bones: No fractures or dislocations. The prior arthroplasty dislocation on the left has been reduce d successfully. Pelvic ring appears intact. No suspicious bony lesions. Soft tissues: The visualized bowel gas pattern is normal. No suspicious soft tissue calcifications. IMPRESSION: Left total hip arthroplasty, successfully reduced with reference to the imaging from [facility] today. No secondary fracture of the upper [place] bone is found. No arthroplasty loosening is seen.. Reviewed by: Carlyle Jaime MD on 09/16/2020 5:39 PM PST Approved by: Carlyle Jaime MD on 09/16/2020 5:39 PM PST Station ID: [id number]
[2020-09-16] MEDS ORDERED: KETOROLAC 15 MG/ML VIAL IVP STA (17:42)
[2020-09-16 18:37] VITALS: BP 155/78
== END 2020-09-16 18:42 | disposition home or self-care (01) ==
LOC: EDUNIT# → ED 14:11
DX: T84.021A Dislocation of internal left hip prosthesis, initial encounter (principal); Y83.8 Other surgical procedures as the cause of abnormal reaction of the patient, or of later complication, without mention of misadventure at the time of the procedure; Y92.129 Unspecified place in nursing home as the place of occurrence of the external cause; Z79.82 Long term (current) use of aspirin
CPT/HCPCS: 27265; 51702; 73502; 96361; 96374; 99152; 99284; 99285; J1170; 94770

== ENCOUNTER 2020-09-16 18:12 | Outpatient (CLI) | payer MEDICARE, OTHER | END 2020-09-16 18:13 | LOC: EMS 18:12 | PROVIDERS: ATTEND Surgery | DX: M24.452 Recurrent dislocation, left hip (principal) | CPT/HCPCS: A0425; A0428; A0429 ==

== ENCOUNTER 2020-10-02 10:50 | Outpatient (CLI) | payer MEDICARE, OTHER ==
--- NOTE | 2020-10-02 18:04 | CONSULTATION NOTE ---
Palliative Care Follow Up - Referral Referring Provider: Dr. Acosta Rosa Time of Visit: [id number] Referral setting: [facility] Facility Referral Reason: Squamous Cell Carcinoma of Lung/Advanced Care Planning - Information Sources Records reviewed: Previous records reviewed History/Review of Systems obtained from: Patient, Family (daughterSharmin via phone), Nursing (Martina), Other (physical therapist, Brennon) Exam limitations: No limitations - History of Present Illness Update Brief HPI Update: This is a 75-year-old female who was seen in follow-up today at [facility] For new diagnosis of squamous cell carcinoma of the left lung and advance care planning. Please see past medical history dictated on 09/05/2020. The patient underwent a left hip hemiarthroplasty for displaced femoral neck fracture of the left hip on 08/06/2020 after she sustained a fall. She is presently undergoing rehabilitation services at [facility]. Since last evaluation she developed a dislocation of her left hip and subsequently had reevaluation by orthopedics and was placed in an abduction hip spica brace and she has a follow-up in approximately 1 month for reevaluation. She has not had further dislocation since the initial event. She relays that due to a series of unfortunate events with planning she has not been able to optimize her time with physical therapy services due to multiple appointments for evaluation the lung mass noted in her left upper lobe. However, according to rehabilitation staff the patient has a reluctance for participation due to fear of falling, increased pain in inability for follow-through. Her prognosis for returning to her previous baseline function is poor and the patient has not been able to recognize this according to her daughterSharmin as well as facility staff. Since last evaluation the patient had a bronchoscopy with biopsy to evaluate the left upper lobe mass and it was determined to be squamous cell carcinoma with negative lymph nodes. However, a PET scan preformed indicated activity in some of her Hilar lymph nodes on the left. She was evaluated by pulmonary at [place] and it was determined that she is not a surgical candidate. The treatment would involve chemotherapy and/or radiation. The patient is not interested in pursuing chemotherapy given in prior past experiences in regards to family and dear friends. The prognosis that the patient heard was approximately 6 months and that any form of treatment would be palliative and not curative. The patient has had underlying pain when she is presently on schedule oxycodone/acetaminophen 10 mg / 325 mg 4 times a day and 1 tablet as needed every 6 hours. Asked if she wished to alter her pain regimen schedule but she declines. Staff reports that the patient has had some noted cognitive impairment in the last 2 weeks, approximately. She is requiring repetition of answers for questions asked. The patient even today demonstrated that she had a check that she was to mail and she mailed the envelope without the check in it. Also of note, rehabilitation staff note that there have been instances where she has difficulty with coordination for example, a time when she was in a wheelchair she continually move forward into the wall and could not determine how to red irect herself. Her daughter, Sharmin has also noticed this increased forgetfulness. Of note, there has not been a change in her pain medication administration. The patient herself today reports relays that she is having increased discomfort from muscle spasms and cramping overnight. She has used quinine in the past and at home uses theraworx and is requesting something for relief at the spasms wake her up at night. She has developed skin breakdown to her buttocks and wound residential caregiver for the facility was consulted earlier this week with recommendations in place with cream application, avoidance of bedpan and depends but the patient has been resistant to these recommendations outside of the cream application. The patient is seen sitting up in her bed, well-groomed and alert. She has a hip brace in place on the left. Past Medical History: Patient has a past medical history history of migraines, thyroid nodule, GERD, HRT, incontinence, chronic sinusitis, chronic back pain, left foot drop, balance issues, lumbar radiculopathy, nocturnal leg cramps, osteoarthritis, left hip hemiarthroplasty, squamous cell carcinoma of the left lung. Social History - Living Situation Living arrangement: At home Living Situation: Alone Support System: She presently is at [facility] for rehabilitation. Previously she was residing alone in an apartment in [place]. She is . 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 She has 3 children and essentially raised her children as a single mother. 2 sons are in [place] and her daughter, Sharmin is low goal residing on [facility]. The patient relocated from [place] to [facility] approximately 2 years ago. The patient's daughter, Sharmin reports that the patient has previously qualified for [facility] program and is on a waiting list. Sharmin has previously been in contact with [facility]. Medications/Allergies - Medications Home Medications: Ambulatory Orders Medication Instructions Recorded Confirmed Alendronate [Fosamax] 70 mg PO Q7D #2 tablet 08/09/20 10/02/20 Aspirin [Jarred] 325 mg PO BIDWM #28 tablet 08/09/20 10/02/20 Acetaminophen [Tylenol] 650 mg PO Q8H PRN 09/05/20 09/05/20 Bisacodyl Supp [Dulcolax Supp] 10 mg CA DAILY PRN MDD if senna 09/05/20 10/02/20 not effective Calcium Carbonate/Vitamin D3 1 tab PO DAILY 09/05/20 10/02/20 [Oyster Shell 500-Vit D3 200 Pk] Capasicin 0.1% 1 applic TP BID MDD b/l knees 09/05/20 Magnesium Hydroxide [Milk of 30 ml PO DAILY PRN MDD if no BM in 09/05/20 10/02/20 Magnesia] 2 days Montelukast [Singulair] 10 mg PO QPM 09/05/20 10/02/20 Multivitamin [Daily Multiple 1 tab PO DAILY 09/05/20 10/02/20 Vitamin] Oxycodone HCl/Acetaminophen 1 tab PO Q6HR PRN 09/05/20 10/02/20 [Oxycodone-Acetaminophen 10-325] Senna [Senokot] 1 tab .ROUTE BID PRN 09/05/20 09/05/20 polyethylene glycoL 3350 [Miralax] 17 g PO BID 09/05/20 10/02/20 Cetirizine [ZyrTEC] 10 mg PO DAILY PRN MDD allergies 10/02/20 10/02/20 Cyclobenzaprine HCl 5 mg PO QPM PRN 10/02/20 10/02/20 Estradiol [Estrace] 1 mg PO DAILY 10/02/20 10/02/20 Fluticasone/Vilanterol [Breo 1 puffs IH DAILY 10/02/20 10/02/20 Ellipta 100-25 Mcg INH] Magnesium Oxide [Mag Ox] 800 mg PO DAILY 10/02/20 10/02/20 Oxycodone HCl/Acetaminophen 1 tab PO QID 10/02/20 10/02/20 [Percocet 10-325 mg Tablet] medroxyPROGESTERone [Provera] 2.5 mg PO DAILY 10/02/20 10/02/20 - Allergies Allergies/Adverse Reactions: Allergies Allergy/AdvReac Type Severity Reaction Status Date / Time Sulfa (Sulfonamide Allergy Unknown Verified 10/02/20 19:47 Antibiotics) Review of Systems - Constitutional Constitutional: reports: Fatigue, Poor appetite, Weight loss. denies: Fever - Eyes Eyes: reports: Corrective lenses - Ears, Nose & Throat Ears, Nose & Throat: denies: Hearing aids - Cardiovascular Cardiovascular: denies: Chest pain, Edema - Respiratory Respiratory: denies: Cough, Sputum production, Wheezing - Gastrointestinal Gastrointestinal: reports: Constipation (finds that previous bowel regimen had her defecating too frequently leading to pain to her skin on her buttocks and she wants to have further control of her bowel regimen and wants to manage via fiber and water.), Poor appetite (Dislikes the food at the facility as it is "mass produced and not fresh." Her daughter brings her food and her fridge in her room is stocked with items.). denies: Vomiting - Genitourinary Genitourinary: reports: Other (oleary catheter in place) - Musculoskeletal Musculoskeletal: reports: Back pain, Stiffness, Joint pain, Assistive devices, Transfer issues, Other (muscle spasms at night) - Integumentary Integumentary: reports: Other (Skin breakdown to buttocks) - Neurological Neurological: reports: General weakness, Other - Psychiatric Psychiatric: denies: Depression - Endocrine Endocrine: denies: Diabetes type 2 - All Other Systems All Other Systems: reports: Reviewed and negative Physical Exam - Vital Signs Temperature: 36.9 C Pulse Rate: 81 O2 Saturation: 98 (on RA at rest) Blood Pressure: 101/60 (left wrist cuff) - Physical Exam General Appearance: positive: No acute distress, Alert, Other (thin, sitting up in bed) Eyes Bilateral: positive: Other (+corrective lenses) ENT: positive: No signs of dehydration Neck: positive: Trachea midline Cardiovascular: positive: Regular rate & rhythm, No murmur Respiratory: positive: No respiratory distress, Breath sounds nml. negative: Rales Abdomen: positive: Non-tender, Soft, Nml bowel sounds Skin: positive: Pallor, Wound (buttocks, unable to visualize--see nursing notes for full details. Patient reports decreased discomfort.) Extremities: positive: No pedal edema, Other (left abduction hip spica brace in place) Neurologic/Psychiatric: positive: Oriented x3, Weakness, Other (+left foot drop; very morelia in her responses at times) Palliative Care - POLST Patient has POLST: Yes POLST Status: DNR, Comfort Measures Pain: Pain unchanged (discussed alerting pain regimen schedule but declines at this time) Anorexia: Mild (1-3) Dyspnea: None Depression: None Sleep: Sleeps well Constipation: Managed Performance Status: Patient is status post left hip hemiarthroplasty. Today, she transferred to the bedside commode. Has a Oleary catheter in place. Goal presently is to be able to ambulate with a walker to the bathroom to ensure that this is attached to be able to do within her apartment. Unclear if the patient will be able to regain her functional losses. PPS 50% - Palliative Care Discussion: The patient has had several misfortunes in the last year with 3 major surgeries. She has now been diagnosed with squamous cell carcinoma of the left lung and a new type of treatment would be palliative in nature with prolongation of life. The patient herself remains quite clear that she does not wish to pursue chemotherapy or radiation given her prior experiences with Family members and dear friends who underwent treatments for their cancer diagnoses. This is not something that she wishes for herself. She is also adamant that she does not wish to be a burden on her children more specifically, her daughter Sharmin. In discussing moving forward with a potential oncology consult or a another opinion the patient was quite glib in her response stating that the ultimate re sult would be the same and that "I will still be just is ." The patient is focusing on her objective of being able to ambulate to the bathroom with her ultimate goal to return home. However, She appears to have a disconnect regarding her overall prognosis and physical abilities. Given the patient's functional limitations and some noted recent cognitive impairment she would not be safe to return home without oversight for safety. Her daughter, Sharmin, would not have availability for room within her own home and the additional challenge with multiple series of stairs impeding the patient being in that environment. The patient's lack of appetite and noted weight loss is concerning for not only her her underlying cancer diagnosis but also due to depressive symptoms. Attempted to have the patient opened up and discuss her emotions regarding her prognosis and potentially recommend antidepressive therapy such as mirtazapine which would have a dual benefit of an appetite stimulant as well as an antidepressant however, the patient did not wish to broach this subject and diverted. The patient's daughter, Sharmin is looking ahead and attempting to have foresight and planning. Sharmin was also very clear that the patient is 1 that has always been controlling and the lack of control that she has regarding her present health and physical restrictions has become extremely frustrating for the patient. Of note, the patient is quick to make her judgment regarding medical recommendations and does not always follow through. Impression and Recommendations - Palliative Care Impression: This is a 75-year-old female who has the misfortune of a new diagnosis of squamous cell carcinoma of the left lung with a past history of tobacco abuse with a poor prognosis of treatment only being palliative in nature and the patient not wishing to proceed with treatment options. The patient's is used to being in control of her in environment such as her medications and management of her affairs and being in a facility is extremely difficult for her. She has also been displaying some short-term memory deficits and this is unclear if this is due to her recent exposures to anesthesia versus opioid medication versus depression. The patient's ultimate goal is to return in to her home setting but it is not clear if this will ultimately feasible. Palliative care will continue to provide support for symptom management and anticipatory guidance. Recommendations/Counseling Done: 1. Squamous cell carcinoma of the left lung. New diagnosis. Patient has a past history of tobacco abuse. Status post pulmonary consult with recommendations 09/27/2020. Patient does not desire to proceed with oncology consult and treatment options of chemotherapy and or radiation. She is aware that she has a limited life expectancy and does not wish to be a burden upon her family. In discussing consulting with oncology for an additional opinion the patient declined. We will continue to provide support for both the patient and her family moving forward in regards to potential symptom burden related to the patient's underlying cancer diagnosis. 2. Left hip fracture status post left hip hemiarthroplasty. Patient reports pain is presently controlled on Percocet 10 mg / 325 mg 4 times daily. Disc ussed dose adjustments today but patient declined. Given her frequency of scheduled Percocet consider transitioning to fentanyl patch if patient is amenable for reduction of potential cognitive side effects of Percocet. Continue to work with onsite PT and OT to optimize function with the patient's ultimate goal to be able to return home. Is unclear if this will be feasible. Follow-up with orthopedics as scheduled. 3. Muscle spasms to lower extremities, nocturnal. Longstanding history. Initiate Flexeril 5 mg at bedtime if needed. Reviewed purpose, dose and side effects with the patient. 4. Cognitive impairment. Noted forgetfulness by caregiving staff as well as the patient's daughter, Sharmin. Unclear if this is due to opioid administration however, less likely given the patient's length of time on this medication versus frequent exposure to anesthesia versus underlying untreated depression. Patient would benefit from a more formal evaluation. No SL PE on site due to coronavirus. Will attempt formal evaluation At next visit with SLUMS assessment. 5. Advance care planning. Patient has POLST in place is DNR with comfort measures. The patient is quite clear that she does not want to pursue treatment options for her new diagnosis of squamous cell carcinoma of the left lung. She is presently lacking insight into her functional abilities to be able to return home at her present state. She has not been demonstrating that she is motivated to participate in rehabilitation services adequately in order to progress. The patient perceives her lack of progress not due to refusal but due to frequent appointments that she has had to undergo. The patient is also 1 that is used to being in control and not being so is difficult for her to accept. Palliative care will need to continue to tease out the patient's expectations, ultimate goals, and assist the patient and her family regarding advanced care planning. CC: Dr. Kaylin Lima Time Spent: F/u 1-2 weeks or PRN. Total time spent 60 minutes with greater than 50% of this spent in counseling and coordination of care with patient and nursing staff; examination of patient; review of pain and symptom management and anticipatory guidance. Reviewed POC with facility provider, Dr. Rosa. Lengthy phone conversation with patient's daughterSharmin with patient's permission at [phone] in regards to discharge planning, placement, expectations and anticipatory guidance. Questions answered and addressed. Supportive listening provided. Disclaimer: The chart note was formulated using voice recognition technology and unfortunately sound alike errors may occur.
== END 2020-10-02 10:51 | disposition home or self-care (01) ==
LOC: PC 10:50
PROVIDERS: ATTEND Nurse Practitioner Family
DX: Z51.5 Encounter for palliative care (principal); C34.92 Malignant neoplasm of unspecified part of left bronchus or lung; S72.002D Fracture of unspecified part of neck of left femur, subsequent encounter for closed fracture with routine healing; W19.XXXD Unspecified fall, subsequent encounter; Z87.891 Personal history of nicotine dependence; M62.838 Other muscle spasm; G31.84 Mild cognitive impairment of uncertain or unknown etiology; Z66 Do not resuscitate
CPT/HCPCS: 99310

== ENCOUNTER 2020-10-09 10:50 | Outpatient (CLI) | payer MEDICARE, OTHER ==
--- NOTE | 2020-10-09 18:16 | CONSULTATION NOTE ---
Palliative Care Follow Up - Referral Referring Provider: Dr. Acosta Rosa Time of Visit: [id number] Referral setting: [facility] Referral Reason: Squamous cell carcinoma of the lung/ pain management/Advanced Care Planning - Information Sources Records reviewed: Previous records reviewed History/Review of Systems obtained from: Patient, Nursing Exam limitations: Clinical condition (mild short term memory impairment noted) - History of Present Illness Update Brief HPI Update: This is a 75-year-old female who was seen in follow-up today at [facility] for recent diagnosis of squamous cell carcinoma of the left lung, pain management, and advanced care planning. Please see past medical history dictated on 09/05/2020. The patient underwent a left hip pam-O arthroplasty for displaced femoral neck fracture of the left hip on 08/06/2020 after she sustained a fall. She is undergoing rehabilitation services of [facility]. However, the patient continues to not wish to ambulate with nursing staff and only with rehabilitation services. Therefore, she continues to have a Oleary catheter in place and is not utilizing the bedside: Mode optimally. She recognizes that she is not to use a bedpan due to risk of hip dislocation which had occurred last month. She is presently in an abduction hip spica brace and she is to have a reevaluation with orthopedics at the end of this month. The patient herself, perceives not wanting to put full weight on her left foot as well as her left foot drop as contributing to her ability to make progress. Facility staff note that the patient's Will for certain responses that have been supplied. The patient's daughter, Sharmin reports that she has noted more forgetfulness with the patient and she is texting her approximately 30-40 times per day and it seems to be a stream of consciousness and not always making good connections with her thoughts. The patient is now perseverating on her bowel regiment. She is trying to optimize fiber in her diet and was having routine bowel movements but last night she was had a bowel movement in the bed and this was "unacceptable." She now is attempting to control the situation with her scheduled oxycodone/acetaminophen administration alternating between that and acetaminophen as she is reporting a desire to have reduced pain medications. However, the patient is reporting some increased pain specifically, to her left hip. The patient continues to be quite adamant that she does not wish to have any type of treatment for her new diagnosis of squamous cell carcinoma if that were to entail chemotherapy or radiation. She is open to "taking a pill." As long as this does not result in hair loss and other adverse side effects. She has not consulted with oncology as she previously declined when she had a telemedicine visit with director stars. Last evaluation, the patient was reporting increased discomfort from muscle spasms and cramping overnight. She was initiated on Flexeril 5 mg at night as needed. She has utilized this on an as-needed basis and has not found this effective. She is used quetiapine and [employer]ra works in the past for her spasming. The patient is seen sitting up in bed, well-groomed and alert. She has a hip brace in place on the left. Past Medical History: Patient has a past medical history of migraines, thyroid nodule, GERD, HRT, incontinence, chronic sinusitis, chronic back pain, left foot drop, balance issues, lumbar radiculopathy, neck terminal leg cramps, osteoarthritis, left hip hemiarthroplasty, squamous cell carcinoma of the left lung 2020. Social History - Living Situation Living arrangement: At home Living Situation: Alone Support System: She is presently at [facility] for rehabilitation. Previously she was residing alone in an apartment in [place]. She is . 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 She has 3 children and essentially raised her children as a single mother. Her 2 sons are in [place] and her daughter, Sharmin resides locally on [facility]. The patient relocated from [place] to [facility] approximately 2 years ago. The continued concern to the present time is a discharge plan that is safe for the patient. The patient has remained adamant that she desires to return home however, given her lack of ability to ambulate independently is a source of concern for her to be able to return home without supervision. Is unclear, what amount of supervision will be required and the funds to provide for this. Medications/Allergies - Medications Home Medications: Ambulatory Orders Medication Instructions Recorded Confirmed Alendronate [Fosamax] 70 mg PO Q7D #2 tablet 08/09/20 10/02/20 Aspirin [Jarred] 325 mg PO BIDWM #28 tablet 08/09/20 10/02/20 Acetaminophen [Tylenol] 650 mg PO Q8H PRN 09/05/20 09/05/20 Bisacodyl Supp [Dulcolax Supp] [address] DAILY PRN MDD if senna 09/05/20 10/02/20 not effective Calcium Carbonate/Vitamin D3 1 tab PO DAILY 09/05/20 10/02/20 [Oyster Shell 500-Vit D3 200 Pk] Capasicin 0.1% 1 applic TP BID MDD b/l knees 09/05/20 Magnesium Hydroxide [Milk of 30 ml PO DAILY PRN MDD if no BM in 09/05/20 10/02/20 Magnesia] 2 days Montelukast [Singulair] 10 mg PO QPM 09/05/20 10/02/20 Multivitamin [Daily Multiple 1 tab PO DAILY 09/05/20 10/02/20 Vitamin] Oxycodone HCl/Acetaminophen 1 tab PO Q6HR PRN 09/05/20 10/02/20 [Oxycodone-Acetaminophen 10-325] Senna [Senokot] 1 tab .ROUTE BID PRN 09/05/20 09/05/20 polyethylene glycoL 3350 [Miralax] 17 g PO BID 09/05/20 10/02/20 Cetirizine [ZyrTEC] 10 mg PO DAILY PRN MDD allergies 10/02/20 10/02/20 Cyclobenzaprine HCl 5 mg PO QPM PRN 10/02/20 10/02/20 Estradiol [Estrace] 1 mg PO DAILY 10/02/20 10/02/20 Fluticasone/Vilanterol [Breo 1 puffs IH DAILY 10/02/20 10/02/20 Ellipta 100-25 Mcg INH] Magnesium Oxide [Mag Ox] 800 mg PO DAILY 10/02/20 10/02/20 Oxycodone HCl/Acetaminophen 1 tab PO QID 10/02/20 10/02/20 [Percocet 10-325 mg Tablet] medroxyPROGESTERone [Provera] 2.5 mg PO DAILY 10/02/20 10/02/20 - Allergies Allergies/Adverse Reactions: Allergies Allergy/AdvReac Type Severity Reaction Status Date / Time Sulfa (Sulfonamide Allergy Unknown Verified 10/02/20 19:47 Antibiotics) Review of Systems - Constitutional Constitutional: reports: Fatigue, Poor appetite, Weight loss (132lb). denies: Fever - Eyes Eyes: reports: Corrective lenses - Ears, Nose & Throat Ears, Nose & Throat: reports: Other (her voice becomes hoarse after speaking for long periods of time and is using cough drops for moisture) - Cardiovascular Cardiovascular: denies: Chest pain - Respiratory Respiratory: reports: Other (Reports to increased nasal congestion with PND cough and has mucinex as needed back as she previously requested this to be discontinued). denies: Wheezing - Gastrointestinal Gastrointestinal: reports: Constipation (trying to manage with fiber, water and reducing her oxycodone administration frequency), Poor appetite (Dislikes the food at the facility as it is "mass produced and not fresh." Her daughter brings her food and her fridge in her room is stocked with items.). denies: Vomiting - Genitourinary Genitourinary: reports: Other (oleary catheter in place) - Musculoskeletal Musculoskeletal: reports: Back pain, Stiffness, Joint pain, Assistive devices, Transfer issues, Other (muscle spasms at night improved with flexeril) - Integumentary Integumentary: reports: Other (Skin breakdown to buttocks) - Neurological Neurological: reports: General weakness, Memory problems (noted STM losses reported by daughter and facility staff; patient herself denies mental fog and reports to "slowness due to being older."), Other - Endocrine Endocrine: denies: Diabetes type 2 - All Other Systems All Other Systems: reports: Reviewed and negative Physical Exam - Vital Signs Temperature: 36.1 C Pulse Rate: 68 O2 Saturation: 95 (on RA) Blood Pressure: 105/76 (l) - Physical Exam General Appearance: positive: No acute distress, Alert, Other (thin, sitting up in bed) Eyes Bilateral: positive: Other (+corrective lenses) ENT: positive: No signs of dehydration Neck: positive: Trachea midline Cardiovascular: positive: Regular rate & rhythm, No murmur Respiratory: positive: No respiratory distress, Breath sounds nml Abdomen: positive: Non-tender, Soft, Nml bowel sounds Skin: positive: Pallor, Wound (buttocks, unable to visualize--see nursing notes for full details. Patient reports decreased discomfort.) Extremities: positive: No pedal edema, Other (left abduction hip spica brace in place) Neurologic/Psychiatric: positive: Oriented x3 (believed the year was 2020; SLUMS examination preformed and patient scored 22/30 and on the clock drawing evaluation only placed the numbers 9, 10, 11, 12, 1, 2, 3 missing the bottom half and placed the hands at the wrong time.), Weakness, Other (+left foot drop; very morelia in her responses at times) Palliative Care - POLST Patient has POLST: Yes POLST Status: DNR, Comfort Measures Pain: Comment (see HPI for full details) Dyspnea: None Constipation: Opoid induced, Managed (to a degree, see HPI) Performance Status: Patient is status post left hip hemiarthroplasty. She has side rails to utilize in bed. She continues to have a Oleary catheter in place due to her reluctance for discontinuation. She is only ambulating with rehabilitation services and not with nursing staff. It is unlikely the patient will be able to regain her previous functional status. PPS 50% - Palliative Care Discussion: The patient has some noted cognitive impairment that she does not perceive outside of "slowness due to old age." It is possible that due to the patient's recent diagnosis of cancer with underlying anxiety regarding mortality and management as well as the 3 major surgeries that she has had in the last year have contributed to this impairment. The patient is someone who desires control in a situation. She is demonstrating this by managing when she will receive her scheduled oxycodone/acetaminophen by alternating between that and acetaminophen despite the medications being scheduled as she wishes to titrate herself off of the medication to have control over her bowel function. She also finds it extremely frustrating that she is not able to have medications at the bedside to administer to herself like she does at home. Introduced today with the patient that she continues to not demonstrate functional gains while working with therapy and that she continues to make strides towards her goal of returning home specifically not allowing for the Oleary catheter to be removed. The patient relays that she does not want the Oleary catheter removed until her excoriation to her bilateral buttocks is resolved. However, all of these factors are not beneficial or positive for the patient to be able to return home independently and would require oversight. Introduced the concept of facility based care or an adult family home as a potential option relating the different paths that may need to be taken. The patient was quite clear that she desires to return home "even if it were just to be 3 days." She continues to not wish to pursue chemotherapy or radiation given her prior experience with these measures with family and friends with cancer diagnoses. She does not wish this for herself. However, she would be open to "taking pills." Discussed that she has not spoken directly to an oncologist regarding potential treatment options recognizing that what would be offered would likely only be palliative in nature and not curative. The patient will be willing to speak to an oncologist regarding options if she were to be able to do this via telemedicine. The patient appears to be struggling and going through the phases of grief with her diagnosis of squamous cell carcinoma of the lung. Impression and Recommendations - Palliative Care Impression: This is a 75-year-old female who has the misfortune of a new diagnosis of squamous cell carcinoma of the left lung with a past history of tobacco abuse with a poor prognosis of treatment being palliative in nature. The patient is struggling with this diagnosis Well as her recent functional losses and inability to be independent. The patient is exercising her control and managing her medical situation as much as possible as she is used to being in control of her environment. Upon evaluation with and US today she demonstrates mild cognitive impairment and does not perceive this deficits. The patient continues to have ultimate desire to return to her home setting. Palliative care will continue to provide support for symptom management and anticipatory guidance. Recommendations/Counseling Done: 1. Squamous cell carcinoma of the left lung. New diagnosis as of 09/2020. Patient has a past history of tobacco abuse. Status post pulmonary consult on 09/27/2020 with telemedicine visit. Patient is open to oncology consult with treatment recommendations if it is not chemotherapy or radiation. She is also only open to an oncology consult if this can be proceeded with a telemedicine visit so she does not have to leave the facility due to pain in a motor vehicle. She continues to not wish to be a burden to her daughter. Message left for MAC clinic at [facility] regarding potential oncology telemedicine consult for options with the patient if she wishes to proceed and would benefit from her daughter being present for this consult. We will continue to provide support with the patient and her family moving forward in this process and any potential symptom burden that may develop regarding her underlying cancer diagnosis. 2. Left hip fracture status post left hip hemiarthroplasty. Patient's pain had previously been controlled on Percocet 10 mg / 325 mg every 4 hours scheduled. The patient is now refusing alternate administration of Percocet 10 mg / 325 mg acetaminophen to reduce her opioid requirements and thus improving her bowel regiment. She just initiated this last evening and does not wish for changes to her pain regimen at this time. This LINEN MANAGER introduced the concept of a fentanyl patch for management of the patient's pain and would work provide as steady- state that would offer titration of bowel regiment. The patient relays that she will contemplate transitioning to a fentanyl patch but denies at this time. Patient continues to work with onsite PT and OT to optimize function with the patient's ultimate goal to be able to return home however, it is unclear if this will be feasible. Follow-up with orthopedics as scheduled. 3. Muscle spasms to lower extremities, nocturnal. Longstanding history. Positive response with initiation of Flexeril 5 mg at bedtime if needed. 4. Mild cognitive impairment. Confirmed with UMS testing today with score 22 out of 30. Noted forgetfulness noted by caregiving staff as well as the patient's daughter, Sharmin. This is likely multifactorial due to frequent exposure to anesthesia as well as anxiety and depression related to her new cancer diagnosis. We will continue to provide support. 5. Advanced care planning. Patient has POLST in place as DN AR with comfort measures. Patient is open to oncology consult if this is done via telemedicine. Please see diagnosis squamous cell carcinoma of the lung for further details. Continues to need a safe discharge plan from the facility and presently her Medicare coverage expires November 16. Introduced concept of caregivers within the home recognizing that this is difficult of for obtain[place]. Patient is fixating on making attempts of what she may have control over her work guards to her circumstances and will continue to benefit from supportive listening to tease out her plans and goals moving forward. There is a care plan conference to be held at the facility on Wednesday which will further be able to diarrhea direct discharge planning. This LINEN MANAGER spoke to social human services assistants at [facility] and requested that she evaluate for the patient's possibility to have a [facility] application performed for Medicaid coverage. CC: Dr. Kaylin Lima Time Spent: Follow-up 1 to 2 weeks or as needed. Total time spent 90 minutes with greater than 50% of this in counseling coordination of care for the patient and nursing staff as well as social work; Examination of patient, introduction of discharge planning, review of pain and symptom management and anticipatory guidance. Reviewed plan of care with facility provider, Dr. Rosa. Lengthy phone conversation with patient's daughterSharmin at [phone] in regards to discharge planning, patient spent, supportive listening and anticipatory guidance. Questions answered and addressed. Supportive listening provided.
== END 2020-10-09 10:51 | disposition home or self-care (01) ==
LOC: PC 10:50
PROVIDERS: ATTEND Nurse Practitioner Family
DX: Z51.5 Encounter for palliative care (principal); C34.92 Malignant neoplasm of unspecified part of left bronchus or lung; S72.002D Fracture of unspecified part of neck of left femur, subsequent encounter for closed fracture with routine healing; W19.XXXD Unspecified fall, subsequent encounter; M62.838 Other muscle spasm; G31.84 Mild cognitive impairment of uncertain or unknown etiology; Z87.891 Personal history of nicotine dependence; Z66 Do not resuscitate
CPT/HCPCS: 99310

== ENCOUNTER 2020-10-14 18:25 | Outpatient (CLI) | payer MEDICARE, OTHER ==
[2020-10-14 19:41] LABS: H. PYLORIS ANTIGEN STL NEGATIVE (Negative)
== END 2020-10-14 23:59 | disposition home or self-care (01) ==
LOC: LAB.R 18:25
DX: K29.60 Other gastritis without bleeding (principal); B96.81 Helicobacter pylori [H. pylori] as the cause of diseases classified elsewhere
CPT/HCPCS: 87338

== ENCOUNTER 2020-10-15 07:00 | Outpatient (CLI) | payer MEDICARE, OTHER ==
[2020-10-15 20:13] LABS: BASOPHILS # (AUTO) 0.1 10^3/uL (0.0-0.1); BASOPHILS % (AUTO) 0.4 %; EOSINOPHILS # (AUTO) 0.5 10^3/uL (0.0-0.7); HGB - HEMOGLOBIN 10.9 g/dL (12.0-16.0); LYMPHOCYTES # (AUTO) 1.9 10^3/uL (1.5-3.5); LYMPHOCYTES % (AUTO) 15.2 %; MEAN CORPUSCULAR HEMOGLOBIN 27.4 pg (27.0-31.0); MEAN CORPUSCULAR HGB CONC 32.9 g/dL (32.0-36.0); MEAN CORPUSCULAR VOLUME 83.2 fL (81.0-99.0); MEAN PLATELET VOLUME 10.9 fL (7.9-10.8); MONOCYTES # (AUTO) 0.7 10^3/uL (0.0-1.0); MONOCYTES % (AUTO) 5.9 %; NEUTROPHILS # (AUTO) 9.1 10^3/uL (1.5-6.6); PLT - PLATELET COUNT 381 10^3/uL (130-450); RED BLOOD COUNT 3.98 10^6/uL (4.20-5.40); RED CELL DISTRIBUTION WIDTH 17.5 % (12.0-15.0); WHITE BLOOD COUNT 12.3 x10^3/uL (4.8-10.8)
[2020-10-15 20:15] LABS: CALCIUM 8.5 mg/dL (8.5-10.3); CREATININE 0.6 mg/dL (0.4-1.0)
== END 2020-10-15 23:59 | disposition home or self-care (01) ==
LOC: LAB.R 07:00
DX: D64.9 Anemia, unspecified (principal); K92.1 Melena; R53.1 Weakness
CPT/HCPCS: 80048; 85025

== ENCOUNTER 2020-10-16 07:00 | Outpatient (CLI) | payer MEDICARE, OTHER ==
[2020-10-16 20:58] LABS: BILIRUBIN,URINE NEGATIVE (NEGATIVE); GLUCOSE, URINE (UA) NEGATIVE (NEGATIVE); KETONES,URINE (UA) NEGATIVE (NEGATIVE); LEUKOCYTE ESTERASE, URINE SMALL (NEGATIVE); NITRITE,URINE POSITIVE (NEGATIVE); OCCULT BLOOD,URINE TRACE-INTA (NEGATIVE); PH,URINE 6.5 PH (5.0-7.5); PROTEIN,URINE NEGATIVE (NEGATIVE); UROBILINOGEN,URINE 0.2 (NORMAL) E.U./dL (NORMAL)
[2020-10-16 21:12] LABS: BACTERIA,URINE Few /HPF (None Seen); CLARITY,URINE CLEAR (CLEAR); RBC,URINE 0-5 /HPF (0-5); SQUAMOUS EPITHELIAL CELL,UR FEW Squamous (<= Few)
== END 2020-10-16 23:59 | disposition home or self-care (01) ==
LOC: LAB.R 07:00
DX: N39.0 Urinary tract infection, site not specified (principal)
CPT/HCPCS: 81001; 81003; 87086

== ENCOUNTER 2020-10-16 12:20 | Outpatient (CLI) | payer MEDICARE, OTHER ==
--- NOTE | 2020-10-16 14:04 | CONSULTATION NOTE ---
Palliative Care Follow Up - Referral Referring Provider: Dr. Acosta Rosa Time of Visit: [id number] Referral setting: [facility] Referral Reason: Squamous cell carcinoma of the lung/pain management - Information Sources Records reviewed: Previous records reviewed History/Review of Systems obtained from: Patient, Nursing Exam limitations: Clinical condition (mild STM impairment) - History of Present Illness Update Brief HPI Update: This is a 75-year-old female who was seen in follow-up at [facility] for recent diagnosis of squamous cell carcinoma of the left lung and pain management. Please see past medical history detailed on 09/05/2020. The patient continues to receive rehabilitation services at [facility]. She has an abduction hip spica brace in place and is to be reevaluated by orthopedics at the end of this month. Her physical therapist who she was working with at the facility is not present this week and she worked with someone else today and was able to get up to the bedside commode. However, she is not ambulating across the room to the bathroom. The patient herself is reported to her daughter, Sharmin that she is back to her baseline prior to her left hip fracture. At baseline the patient stayed pretty much in her apartment and "struggled to walk" due to her left foot drop per the daughter's report. She was unable to stand for very long periods of time but was able to "get by" with assistance from her daughter 3 times a week in the evenings. She also had meals available for preparation she was able to ambulate within her apartment. The patient was previously scheduled for a care conference this past Wednesday with [facility] which had to be rescheduled to 10/28/2020 and further information will be able to be gathered regarding discharge planning per the daughter's report. On 10/10/2020 the patient scheduled routine opioid therapy was decreased to oxycodone 5 mg/acetaminophen 325 scheduled every 4 hours routinely for the patient strong desire to taper down on her pain medication and continues with as needed breakthrough pain medication. She reports that her pain to her extremities is presently controlled. In regards to her constipation, she reports that she is having a bowel movement on a daily basis but the amount and firmness will fluctuate. She is preferring to manage her constipation via her diet as opposed to taking routine medications for bowel regimen. The patient has a loss of her voice when speaking for long periods of time. The patient now desires to proceed with oncology treatment recommendations for her squamous cell carcinoma of the left lung when previously she had declined when meeting with oncology. The patient's CT scan previously demonstrated That the mass is pushing the trachea across towards the right side And may be impeding her vocal cords. Due to this, the patient is now open to have a telemedicine visit with oncology. She is reporting some increased discomfort from her Oleary catheter that has now been changed with resolution of her symptoms but per nursing staff facility provider has ordered a urinalysis due to her symptoms. She remains afebrile. The patient is seen sitting up in bed, well-groomed and alert. She has a hip brace in place on her left side. Past Medical History: Patient has a past medical history of migraines, thyroid nodule, GERD, hurt, incontinence, chronic sinusitis, chronic back pain, left foot drop, balance issues, lumbar radiculopathy, neck terminal leg cramps, osteoarthritis, left hip hemiarthroplasty, squamous cell carcinoma of the left lung 2020 Social History - Living Situation Living arrangement: At home Living Situation: Alone Support System: She is presently at [facility] for rehabilitation. Previously she was residing alone in an apartment in [place]. She was having assistance from her daughter 3 nights per week in the evenings. She is . 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 She has 3 children and essentially raised and is a single mother. She is 2 sons that are still in [place] and her daughter, Sharmin resides locally on [facility]. Medications/Allergies - Medications Home Medications: Ambulatory Orders Medication Instructions Recorded Confirmed Acetaminophen [Tylenol] 650 mg PO Q8H PRN 09/05/20 09/05/20 Bisacodyl Supp [Dulcolax Supp] 10 mg [place] DAILY PRN MDD if senna 09/05/20 10/02/20 not effective Calcium Carbonate/Vitamin D3 1 tab PO DAILY 09/05/20 10/02/20 [Oyster Shell 500-Vit D3 200 Pk] Capasicin 0.1% 1 applic TP BID MDD b/l knees 09/05/20 Magnesium Hydroxide [Milk of 30 ml PO DAILY PRN MDD if no BM in 09/05/20 10/02/20 Magnesia] 2 days Montelukast [Singulair] 10 mg PO QPM 09/05/20 10/02/20 Multivitamin [Daily Multiple 1 tab PO DAILY 09/05/20 10/02/20 Vitamin] Oxycodone HCl/Acetaminophen 1 tab PO Q6HR PRN 09/05/20 10/02/20 [Oxycodone-Acetaminophen 10-325] Senna [Senokot] 1 tab .ROUTE BID PRN 09/05/20 09/05/20 polyethylene glycoL 3350 [Miralax] 17 g PO BID PRN 09/05/20 10/02/20 Cetirizine [ZyrTEC] 10 mg PO DAILY PRN MDD allergies 10/02/20 10/02/20 Cyclobenzaprine HCl 5 mg PO QPM PRN 10/02/20 10/02/20 Estradiol [Estrace] 1 mg PO DAILY 10/02/20 10/02/20 Fluticasone/Vilanterol [Breo 1 puffs IH DAILY 10/02/20 10/02/20 Ellipta 100-25 Mcg INH] Magnesium Oxide [Mag Ox] 800 mg PO DAILY 10/02/20 10/02/20 medroxyPROGESTERone [Provera] 2.5 mg PO DAILY 10/02/20 10/02/20 Oxycodone HCl/Acetaminophen 1 tab PO Q4HR 10/16/20 10/16/20 [Percocet 5-325 mg Tablet] - Allergies Allergies/Adverse Reactions: Allergies Allergy/AdvReac Type Severity Reaction Status Date / Time Sulfa (Sulfonamide Allergy Unknown Verified 10/02/20 19:47 Antibiotics) Review of Systems - Constitutional Constitutional: reports: Poor appetite, Weight loss. denies: Fever - Eyes Eyes: reports: Corrective lenses - Ears, Nose & Throat Ears, Nose & Throat: reports: Other (her voice becomes hoarse after speaking for long periods of time and using throat lonzeges for moisture) - Cardiovascular Cardiovascular: denies: Chest pain, Edema - Respiratory Respiratory: denies: Wheezing - Gastrointestinal Gastrointestinal: reports: Constipation (trying to manage with fiber, water and reduction of opioid use--bowel movement daily presently), Poor appetite (Does not care for the food at facility. Her daughter brings her food and her fridge in her room is stocked with items.). denies: Vomiting - Genitourinary Genitourinary: reports: Other (oleary catheter in place) - Musculoskeletal Musculoskeletal: reports: Back pain, Stiffness, Joint pain, Assistive devices, Transfer issues - Integumentary Integumentary: reports: Other (Skin breakdown to buttocks) - Neurological Neurological: reports: General weakness, Memory problems (mild STM impairment) - Endocrine Endocrine: denies: Diabetes type 2 - All Other Systems All Other Systems: reports: Reviewed and negative Physical Exam - Vital Signs Temperature: 36.2 C Pulse Rate: 76 O2 Saturation: 96 (on RA) Blood Pressure: 98/49 - Physical Exam General Appearance: positive: No acute distress, Alert, Other (thin, sitting up in bed) Eyes Bilateral: positive: Other (+corrective lenses) ENT: positive: No signs of dehydration Neck: positive: Trachea midline Cardiovascular: positive: Regular rate & rhythm, No murmur Respiratory: positive: No respiratory distress, Breath sounds nml Abdomen: positive: Non-tender, Soft, Nml bowel sounds, Other (+oleary catheter) Skin: positive: Pallor, Wound (buttocks, unable to visualize--see nursing notes for full details. Patient showed picture of buttocks on her phone that appears to be stable excoriation and localized erythea.), Other (b/l heels intact) Extremities: positive: No pedal edema, Other (left abduction hip spica brace in place) Neurologic/Psychiatric: positive: Oriented x3 ( [facility]MS examination preformed and patient scored 22/30 on 10/09/2020), Weakness, Other (+left foot drop) Palliative Care - POLST Patient has POLST: Yes POLST Status: DNR, Comfort Measures Pain: Comment (see HPI, pain stable with new regimen) Anorexia: Moderate (4-6) (due to facility food) Dyspnea: None Sleep: Sleep improved (with use of flexeril at bedtime for muscle spasms of LE) Constipation: Yes, Opoid induced, Managed (see HPI) Performance Status: PPS 50% - Palliative Care Discussion: Patient today was focused on having referral been placed to oncology at [facility] for Review of potential treatment options for her squamous cell carcinoma of the left lung. She does not wish to have the rest of her life spent with inability to hold long conversations without losing her voice. She wishes to see what is available to her. Pulmonology had previously given her a prognosis of approximately 6 months. Today, the patient had questions regarding with dignity. She has some interest and looking further into her options regarding with dignity and provided supportive listening and prompted her to look at end-of-life [place] website and if she continues to have further questions and wishes to pursue this line further may [facility] who can make further answer her questions with understanding verbalized. Also relayed to the patient the importance of including her family in this process and she understands this. The care conference at the facility had to be rescheduled for next week per the daughter's report and therefore unclear what therapy will recommend regarding returning home based on the patient's present function. She appears to has slipped past her former baseline of being able to walk short distances in her home despite struggling. She may need further assistance within her home setting or higher level of care. The patient's daughter has been in contact with adult family home, [facility] on [facility] to further obtain all avenues and options. The patient herself strongly desires to return home. Impression and Recommendations - Palliative Care Impression: This is a 75-year-old female with a new diagnosis of squamous cell carcinoma of the left lung in September 2020 with a past history of tobacco abuse who is is now open to oncology recommendations. The patient continues to try to exercise her control with management of her medical situation as much as possible. Her pain appears to be well controlled with recent dose adjustment. She continues to have the ultimate desire to return to her home setting, however that may look like. Palliative care to continue provide support for symptom management, care coordination, and anticipatory guidance. Recommendations/Counseling Done: 1. Squamous cell carcinoma of the left lung. New diagnosis as of 09/2020. Patient has a past history of tobacco abuse. Status post pulmonary consult on 09/27/2020 with telemedicine visit. Patient is now open to oncology consult regarding treatment recommendations due to recent voice hoarseness which may be due to trachea is being pushed upon by the carcinoma. Dr. Rosa, facility provider has made a referral to [facility] at [facility] for consultation and evaluation for oncology and this was confirmed with facility [facility] today. 2. Left hip fracture status post left hip hemiarthroplasty. Patient's pain Presently controlled on reduction of Percocet at 5 mg / 325 mg every 4 hours scheduled. She has as needed Percocet 10 mg / 325 mg every 6 hours as needed for breakthrough pain. She continues to work on her bowel regimen based on her diet and liquid intake as she wishes to avoid bowel medications if at all feasible. Follow-up with orthopedics as scheduled in October 2020. 3.Excoriation to bilateral buttocks. Being followed by wound care consultants at [facility]. Continue to follow recommendations by wound consultants. Patient has been very clear that she does not wish to have her Oleary catheter discontinued until the excoriation to her buttocks has resolved. 4. Advance care planning. Patient has POLST in place as DN AR with comfort measures. The patient is now open to an oncology consult done via telemedicine and referral has been placed to [facility] by facility provider, Dr. Rosa. Patient's Medicare covers expires November 16. She continues to have a strong desire to return home what ever that may look like. The patient is not at her BVS baseline function and would benefit from recommendations from rehabilitation services regarding safe discharge plan home. Facility is to have a care co nference with the patient's daughter and disciplines on 10/28 and will follow up with the patient's daughter regarding recommendations after that point. Time Spent: Total time spent 25 minutes with greater than 50% of this spent in counseling and coordination of care with patient; examination of patient; review of pain and symptom management and anticipatory guidance. POC discussed with Dr. Rosa, facility provider. Contacted patient's daughter, Sharmin and updated regarding POC with questions answered and addressed. Disclaimer: The chart note was formulated using voice recognition technology and unfortunately sound alike errors may occur.
== END 2020-10-16 12:21 | disposition home or self-care (01) ==
LOC: PC 12:20
PROVIDERS: ATTEND Nurse Practitioner Family
DX: Z51.5 Encounter for palliative care (principal); C34.92 Malignant neoplasm of unspecified part of left bronchus or lung; S72.002D Fracture of unspecified part of neck of left femur, subsequent encounter for closed fracture with routine healing; L98.8 Other specified disorders of the skin and subcutaneous tissue; Z87.891 Personal history of nicotine dependence
CPT/HCPCS: 99309

== ENCOUNTER 2020-10-20 07:00 | Outpatient (CLI) | payer MEDICARE, OTHER ==
[2020-10-20 23:08] LABS: BILIRUBIN,URINE NEGATIVE (NEGATIVE); GLUCOSE, URINE (UA) NEGATIVE (NEGATIVE); KETONES,URINE (UA) NEGATIVE (NEGATIVE); LEUKOCYTE ESTERASE, URINE SMALL (NEGATIVE); NITRITE,URINE POSITIVE (NEGATIVE); OCCULT BLOOD,URINE SMALL (NEGATIVE); PH,URINE 5.5 PH (5.0-7.5); PROTEIN,URINE NEGATIVE (NEGATIVE); UROBILINOGEN,URINE 0.2 (NORMAL) E.U./dL (NORMAL)
[2020-10-20 23:18] LABS: CLARITY,URINE SL. CLOUDY (CLEAR); RBC,URINE 0-5 /HPF (0-5)
[2020-10-20 23:19] LABS: AMORPHOUS SEDIMENT,UR Few /LPF; BACTERIA,URINE Many /HPF (None Seen); CRYSTALS,URINE 3-5 Calcium Oxalate /LPF; SQUAMOUS EPITHELIAL CELL,UR FEW Squamous (<= Few)
== END 2020-10-20 23:59 | disposition home or self-care (01) ==
LOC: LAB.R 07:00
PROVIDERS: ATTEND Family Medicine
DX: N39.0 Urinary tract infection, site not specified (principal)
CPT/HCPCS: 81001; 81003; 87077; 87086; 87181

== ENCOUNTER 2020-11-02 07:00 | Outpatient (CLI) | payer MEDICARE, OTHER ==
[2020-11-03 10:57] LABS: BILIRUBIN,URINE NEGATIVE (NEGATIVE); GLUCOSE, URINE (UA) NEGATIVE (NEGATIVE); KETONES,URINE (UA) NEGATIVE (NEGATIVE); LEUKOCYTE ESTERASE, URINE MODERATE (NEGATIVE); NITRITE,URINE POSITIVE (NEGATIVE); OCCULT BLOOD,URINE SMALL (NEGATIVE); PH,URINE 7.5 PH (5.0-7.5); PROTEIN,URINE 30 mg/dL (NEGATIVE); UROBILINOGEN,URINE 0.2 (NORMAL) E.U./dL (NORMAL)
[2020-11-03 11:00] LABS: CLARITY,URINE SL. CLOUDY (CLEAR)
[2020-11-03 11:16] LABS: BACTERIA,URINE Moderate /HPF (None Seen); SQUAMOUS EPITHELIAL CELL,UR RARE Squamous (<= Few)
== END 2020-11-02 23:59 | disposition home or self-care (01) ==
LOC: LAB.R 07:00
DX: N39.0 Urinary tract infection, site not specified (principal)
CPT/HCPCS: 81001; 81003; 87077; 87086; 87181

== ENCOUNTER 2020-11-06 08:00 | Outpatient (CLI) | payer MEDICARE, OTHER ==
[2020-11-06 14:37] LABS: ALBUMIN 2.5 g/dL (3.2-5.5); ALBUMIN/GLOBULIN RATIO 0.6 (1.0-2.2); ALKALINE PHOSPHATASE 74 IU/L (42-121); ALT ALANINE AMINOTRANSFERASE 11 IU/L (10-60); AST ASPARTATE AMINOTRANSFERASE 18 IU/L (10-42); BILIRUBIN,TOTAL < 0.2 mg/dL (0.2-1.0); BUN - BLOOD UREA NITROGEN 24 mg/dL (6-20); CALCIUM 8.3 mg/dL (8.5-10.3); CARBON DIOXIDE - CO2 26 mmol/L (21-32); CHLORIDE 96 mmol/L (101-111); CREATININE 0.6 mg/dL (0.4-1.0); GFR - MDRD 97 (>89); GLUCOSE 103 mg/dL (70-100); POTASSIUM 3.4 mmol/L (3.5-5.0); SODIUM 132 mmol/L (135-145); TOTAL PROTEIN 6.4 g/dL (6.7-8.2)
[2020-11-06 14:47] LABS: BASOPHILS % (AUTO) 0.2 %; EOSINOPHILS # (AUTO) 0.2 10^3/uL (0.0-0.7); EOSINOPHILS % (AUTO) 1.7 %; HCT - HEMATOCRIT 31.1 % (37.0-47.0); HGB - HEMOGLOBIN 9.7 g/dL (12.0-16.0); LYMPHOCYTES # (AUTO) 1.7 10^3/uL (1.5-3.5); LYMPHOCYTES % (AUTO) 13.8 %; MEAN CORPUSCULAR HEMOGLOBIN 25.1 pg (27.0-31.0); MEAN CORPUSCULAR HGB CONC 31.2 g/dL (32.0-36.0); MEAN CORPUSCULAR VOLUME 80.6 fL (81.0-99.0); MEAN PLATELET VOLUME 9.5 fL (7.9-10.8); MONOCYTES # (AUTO) 0.5 10^3/uL (0.0-1.0); MONOCYTES % (AUTO) 4.2 %; NEUTROPHILS # (AUTO) 9.5 10^3/uL (1.5-6.6); NEUTROPHILS % (AUTO) 79.6 %; PLT - PLATELET COUNT 349 10^3/uL (130-450); RED BLOOD COUNT 3.86 10^6/uL (4.20-5.40); RED CELL DISTRIBUTION WIDTH 16.2 % (12.0-15.0); WHITE BLOOD COUNT 11.9 x10^3/uL (4.8-10.8)
== END 2020-11-06 08:01 | disposition home or self-care (01) ==
LOC: LAB.R 08:00
DX: U07.1 COVID-19 (principal); D64.9 Anemia, unspecified
CPT/HCPCS: 36415; 80053; 85025

== ENCOUNTER 2020-12-06 13:32 | Outpatient (CLI) | payer MEDICARE, OTHER ==
--- NOTE | 2020-12-06 16:37 | XRAY Report ---
PROCEDURE: Knee 4 View LT INDICATIONS: LEFT KNEE PAIN TECHNIQUE: 4 views of the left knee(s) were acquired. COMPARISON: X-ray knee 08/09/2020 FINDINGS: Bones: No fractures or dislocations. No suspicious bony lesions. Mild medial and patellofemoral co mpartment narrowing. Soft tissues: No joint effusion. No suspicious soft tissue calcifications. IMPRESSION: Mild medial patellofemoral compartment narrowing suggestive mild arthritic change. No vi sualized acute fracture or dislocation. However, occult injury cannot be excluded. Recommend short in terval imaging follow-up in 7-10 days as clinically indicated for additional evaluation. Reviewed by: Catarina Gibbs MD on 12/06/2020 4:35 PM PST Approved by: Catarina Gibbs MD on 12/06/2020 4:35 PM PST Station ID: [id number]
== END 2020-12-06 23:59 | disposition home or self-care (01) ==
LOC: DI.N 13:32
PROVIDERS: ATTEND Orthopaedic Surgery
DX: M17.12 Unilateral primary osteoarthritis, left knee (principal)

== ENCOUNTER 2020-12-10 13:20 | Outpatient (CLI) | payer MEDICARE, OTHER ==
--- NOTE | 2020-12-10 18:01 | CONSULTATION NOTE ---
Palliative Care Follow Up - Referral Referring Provider: Dr. Ramsey Time of Visit: 5414-5287 Referral setting: [facility] Facility Referral Reason: Advanced Care Planning/Lung CA/Debility - Information Sources Records reviewed: Previous records reviewed History/Review of Systems obtained from: Patient, Nursing (ALAINA Ling) - History of Present Illness Update Brief HPI Update: This is a 75-year-old female seen and evaluated in follow-up today at [facility] in regards to debility, weight loss, squamous cell carcinoma of the l eft lung and advance care planning. Please see past medical history detailed on 09/05/2020. The patient contracted Covid 19 the end of October 2020 and received monoclonal antibody infusion for that diagnosis. She was without any significant respiratory symptoms and has subsequently recovered. During her time on isolation due to COVID-19 she did not work with physical therapy and would not get out of bed with caregivers or nursing staff and subsequently has further deteriorated and her ability to functionally ambulate. The patient continues to remain optimistic that she will be able to return home. The patient had a left hip hemiarthroplasty by Dr. Benitez for displaced femoral neck fracture. Her postop course has been complicated by 2 dislocations requiring reduction and she was placed in a hip spica brace. Due to a series of unfortunate events including dae COVID-19 there was a delay in her having the hip spica abduction brace removed which was done on 12/06/2020. She has been advised not to cross her legs and keep a pillow between her legs when in bed. She is to ambulate with physical therapy with weightbearing on the left leg as tolerated. 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 Sabas Morel. Patient has been presented with options with her daughter, Sharmin with recommendations for further molecular testing to evaluate for immunotherapy however, the tumor sample has not been sufficient for her to be able to afford go testing and she has the option of going for repeat biopsy for testing, immunotherapy without molecular testing or no treatment has the patient has previously expressed that she does not want any IV chemotherapy and prefers to "take a pill." She is also not interested in surgery or radiation for management. She continues without respiratory symptoms and reports that her "allergies are fine." There have been no recent weights as the patient has declined being weighed however, she has had a previous documented weight loss. The patient attributes her weight loss to the poor food at the facility and having to manage independently with her daughter bringing in food into the facility. The patient is seen sitting up in bed working on her computer, well-groomed and alert. She is quite frustrated today as there are multiple issues within the room that need adjustment. She is also frustrated that she has developed breakdown again to her buttocks after multiple visits outside of the facility. Past Medical History: Patient has a past medical history significant for migraines, thyroid nodule, GERD, incontinence, chronic sinusitis, chronic back pain, left foot drop, balanc e issues, lumbar radiculopathy, nocturnal leg cramps, osteoarthritis, lift hip hemiarthroplasty, squamous cell carcinoma of the left lung 2019, Covid19 2019, HRT. Social History - Living Situation Living arrangement: At home Living Situation: Alone Support System: She presently is residing at [facility] for rehabilitation. Previously she was residing alone in an apartment in [place]. She is . 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 She has 3 children and essentially raised them as a single mother. She is 2 sons that are still in [place] and her daughter, Sharmin resides locally on [address] with contact number [phone]. The patient is presently continuing to pay for her apartment and all the amenities affiliated with that. Her daughter has been working on a [place] P[employer] application as well as working with the facility social work specialist, Silvia for plans moving forward. The patient continues to be optimistic that she will be able to return home. However, the patient's daughter she is taking things day by day as she recognizes the intensive care that would be needed to have the patient at home and she is looking at alternative options and payment plans. Medications/Allergies - Medications Home Medications: Ambulatory Orders Medication Instructions Recorded Confirmed Acetaminophen [Tylenol] 650 mg PO Q8H PRN 09/05/20 12/12/20 Bisacodyl Supp [Dulcolax Supp] 10 mg IL DAILY PRN MDD if senna 09/05/20 12/12/20 not effective Capasicin 0.1% 1 applic TP BID MDD b/l knees 09/05/20 12/12/20 Magnesium Hydroxide [Milk of 30 ml PO DAILY PRN MDD if no BM in 09/05/20 12/12/20 Magnesia] 2 days Montelukast [Singulair] 10 mg PO QPM 09/05/20 12/12/20 Multivitamin [Daily Multiple 1 tab PO DAILY 09/05/20 12/12/20 Vitamin] Senna [Senokot] 1 tab .ROUTE BID PRN 09/05/20 12/12/20 polyethylene glycoL 3350 [Miralax] 17 g PO BID PRN 09/05/20 12/12/20 Cetirizine [ZyrTEC] 10 mg PO DAILY PRN MDD allergies 10/02/20 12/12/20 Cyclobenzaprine HCl 5 mg PO QPM PRN 10/02/20 12/12/20 Estradiol [Estrace] 1 mg PO DAILY 10/02/20 12/12/20 Fluticasone/Vilanterol [Breo 1 puffs IH DAILY 10/02/20 12/12/20 Ellipta 100-25 Mcg INH] Magnesium Oxide [Mag Ox] 800 mg PO DAILY 10/02/20 12/12/20 medroxyPROGESTERone [Provera] 2.5 mg PO DAILY 10/02/20 12/12/20 Albuterol Sulfate [Proair Hfa 2 puffs IN Q4HR PRN 12/12/20 12/12/20 Inhaler] Aspirin/Acetaminophen/Caffeine 2 tab PO Q6HR PRN MDD NTE 8tab/24h 12/12/20 12/12/20 [Excedrin Migraine Caplet] Calcium Carbonate [Tums (Calcium 2 tab PO Q4H PRN 12/12/20 12/12/20 Carbonate 500mg)] Ondansetron HCl [Zofran] 4 mg PO Q6H PRN 12/12/20 12/12/20 Oxycodone HCl/Acetaminophen 1 tab PO Q4H 12/12/20 12/12/20 [Percocet 2.5-325 mg Tablet] Oxycodone HCl/Acetaminophen 1 tab PO Q4H PRN 12/12/20 12/12/20 [Percocet 2.5-325 mg Tablet] Oyster Shell Tablet 1 tab PO DAILY 12/12/20 Senna [Senokot] 1 tab PO BID 12/12/20 12/12/20 guaiFENesin [Guaifenesin ER] 1 tab PO BID PRN 12/12/20 12/12/20 - Allergies Allergies/Adverse Reactions: Allergies Allergy/AdvReac Type Severity Reaction Status Date / Time Sulfa (Sulfonamide Allergy Unknown Verified 10/02/20 19:47 Antibiotics) Review of Systems - Constitutional Constitutional: reports: Fatigue, Poor appetite, Weight loss (no recent documentation as patient has declined being weighed) - Eyes Eyes: reports: Corrective lenses - Ears, Nose & Throat Ears, Nose & Throat: denies: Nasal congestion - Cardiovascular Cardiovascular: denies: Chest pain, Edema - Respiratory Respiratory: denies: Wheezing - Gastrointestinal Gastrointestinal: reports: Constipation (tying to manage with diet (water and foods high and fiber) with improvement in routine. It is also difficult for her to get out of bed and defecate on a bedside commode as she has discomfort to her raw buttocks sitting and a cushion did not improve the situation.), Poor appetite (Does not care for the food at facility. Her daughter brings her food and her fridge in her room is stocked with items.). denies: Vomiting - Genitourinary Genitourinary: reports: Incontinence. denies: Dysuria - Musculoskeletal Musculoskeletal: reports: Back pain, Stiffness, Joint pain, Assistive devices, Transfer issues - Integumentary Integumentary: reports: Other (Skin breakdown to buttocks--previously improved then worsened after two outpatient back to back appointments, see HPI) - Neurological Neurological: reports: General weakness, Memory problems - Psychiatric Psychiatric: reports: Depression - Hematologic/Lymphatic Hematologic/Lymph: Other (No history of recurrent infections) - All Other Systems All Other Systems: reports: Reviewed and negative Physical Exam - Vital Signs Temperature: 36.3 C Respiratory Rate: 18 O2 Saturation: 95 Blood Pressure: 107/70 - Physical Exam General Appearance: positive: No acute distress, Alert, Cachetic, Other (sitting up in bed) Eyes Bilateral: positive: Other (+corrective lenses) ENT: positive: No signs of dehydration Neck: positive: Trachea midline, Other (thin) Cardiovascular: positive: Regular rate & rhythm Respiratory: positive: Chest non-tender, No respiratory distress Abdomen: positive: Non-tender, Soft, Nml bowel sounds Skin: positive: Pallor, Pressure wound (to buttocks shown via picture on patient's phone with erythema and appearance of stage II, see nursing notes for full details, receiving local skin care and patient encouraged to turn and reposition frequently but does not follow through per staff report) Extremities: positive: No pedal edema Neurologic/Psychiatric: positive: Oriented x3, Weakness, Other (+left foot drop; disgruntled and feeling overwhelmed today with all the tasks she needs to complete and preform and she is meeting resistance with additional tasks.) Palliative Care - POLST Patient has POLST: Yes POLST Status: DNR, Comfort Measures Pain: Comment (general pain improved but reports "pins and needles" pain to her buttocks) Anorexia: Moderate (4-6) (due to facility food), Weight loss (history of weight loss but no recent weight as patient has declined) Constipation: Opoid induced, Managed Performance Status: Patient has been on and fully participated in physical therapy per nursing staff, caregiver, and daughter and patient herself. Often times she has an excuse as to why physical therapy is not being done or follow-through. She requires assistance getting out of bed and is severely deconditioned. She recently had obtainment of a new foot brace. PPS 40% - Palliative Care Discussion: Patient was deflecting today bringing up all of the physical problems that are presently occurring in her room, rather than focusing on addressing whether or not she wishes to proceed with any management, though palliative in nature, for her squamous cell carcinoma of the left lung. She continues to be very clear that she would not want any systemic treatment with chemotherapy given in many friends and family members that she washed decline on these regimens. She is open to immunotherapy however, she does not wish to go back for A repeat biopsy for more tissue to perform molecular target testing. The patient has been very clear all along given her past exposures for families and friends that have undergone chemotherapy and radiation this is not something that she wishes to experience herself. However, if she does not proceed with immunotherapy she still expresses the desire to live. She does not want to discuss anything further today she wishes to discuss immunotherapy side effects with Dr. Morel tomorrow but is open to reevaluating and searching her thoughts after during her visit with Dr. Morel. Impression and Recommendations - Palliative Care Impression: This is a 75-year-old female with squamous cell carcinoma of the left lung diagnosed in September 2020 with a past history of tobacco abuse, weight loss, and functional debility status post left hip hemiarthroplasty. The patient continues to not be making much progress in her ability to ambulate and function independently undergoing skilled rehabilitation services that has the daughter concerned about the patient's ability to return home. The patient remains optimistic that she will be able to return to her apartment. She has a follow-up appointment with Dr. Morel, oncology on 12/11/2020 To further explore her options regarding immunotherapy so she can make an informed decision if she will move forward or not with treatment. Palliative care to continue provide support for symptom management, care coordination and anticipatory guidance. Recommendations/Counseling Done: 1. Squamous cell carcinoma of the left lung. New diagnosis as of 09/2020. Patient has a past history of tobacco abuse. She has been followed by oncology, Dr. Sabas Morel with consultations via telephone visits with a pending follow-up scheduled 12/11/2020. Patient does not wish to move forward with rebiopsy and molecular testing of tissue samples for targeted immunotherapy and may be open to immunotherapy based on potential side effects weighing risk versus benefits. The patient's has prior exposure to families and friends undergoing cancer treatments which is impacting her review has to what is tolerable for her. She does not wish to proceed with further discussion regarding management at the present time until she has a discussion with Dr. Morel tomorrow and is open to palliative care to return next week for further exploration regarding management and goals of care. 2. Left hip fracture status post left hip hemiarthroplasty. Patient's pain appears to be well controlled with oxycodone/acetaminophen 2.5/325 every 4 hours for pain. The patient has had a goal for titrating back her scheduled pain medication. She continues to work on her bowel regimen based on her diet and liquid intake as she wishes to avoid bowel medications if feasible. She is status post orthopedic follow-up as of 12/06/2020 with removal of her hip spica brace. 3. Physical deconditioning and debility.Patient continues to work with skilled services at [facility] for rehabilitation. However, the patient in appears to not be progressing and has unrealistic expectations of where she may land functionally. Unable to speak with physical therapy department today and will follow-up at next assessment. Fall precautions. 4. Skin breakdown to buttocks. Unable to for visualized today. Being managed by a facility and facility based PCP. Encourage patient to continue to reposition and allow application of barrier creams. Is on a pressure reducing air mattress. Patient's physical deconditioning and weight loss is contributing to her skin breakdown and is at risk for further skin breakdown. 5.Advance care planning. Patient has POLST in place as DN AR with comfort measures. Patient has had 2 telemedicine visits with oncology, Dr. Morel with daughter present via phone. Patient does not wish to make any concrete decisions regarding management options of her squamous cell carcinoma of the lung until she has further discussion with Dr. Morel, tomorrow. The patient's daughter continues to express concerns as the patient's ultimate goal remains to be able to return home to her apartment. With the patient's present functional status it is clear that she would not be able to care for herself independently within the home environment without 24/7 supervision. Supportive listening provided to the daughter. Plan to follow-up with the patient after reassessment with Dr. Morel to further tease out goals of care and advance care planning. Time Spent: Follow-up 1 to 2 weeks or as needed. Total time spent 25 minutes with greater than 50% of this spent in counseling and coordination of care with patient; review of POC with nursing staff; review of oncology notes; examination of patient with supportive listening; review of symptom management and anticipatory guidance. Contacted patient's daughterSharmin at [phone] with discussion regarding recent visit and plan of care with questions answered and addressed. Supportive listening provided. Disclaimer: The chart note was formulated using voice recognition technology and unfortunately sound alike errors may occur.
== END 2020-12-10 13:21 | disposition home or self-care (01) ==
LOC: PC 13:20
PROVIDERS: ATTEND Nurse Practitioner Family
DX: Z51.5 Encounter for palliative care (principal); C34.12 Malignant neoplasm of upper lobe, left bronchus or lung; S72.002D Fracture of unspecified part of neck of left femur, subsequent encounter for closed fracture with routine healing; R53.81 Other malaise; L98.411 Non-pressure chronic ulcer of buttock limited to breakdown of skin; Z86.16 Personal history of COVID-19; Z87.891 Personal history of nicotine dependence; Z66 Do not resuscitate
CPT/HCPCS: 99309

== ENCOUNTER 2020-12-18 10:25 | Outpatient (CLI) | payer MEDICARE, OTHER ==
--- NOTE | 2020-12-18 18:31 | CONSULTATION NOTE ---
Palliative Care Follow Up - Referral Referring Provider: Dr. Alen Ramsey Time of Visit: [id number] Referral setting: Intermediate Facility Referral Reason: Weight Loss/Lung CA/Advanced Care Planning - Information Sources Records reviewed: Previous records reviewed History/Review of Systems obtained from: Patient, Nursing (ALAINA Mack and ALAINA Holguin) - History of Present Illness Update Brief HPI Update: This is a 75-year-old female seen and evaluated today in follow-up at [facility] in regards to debility, weight loss, squamous cell carcinoma of the left lung and advance care planning. Please see detailed history dictated on 09/05/2020. The patient had a follow-up phone call with oncology, Dr. Sabas Morel on 12/11/2020 in regards to planning for management of her squamous cell carcinoma of the left lung. The patient wanted additional information about immunotherapy before making a decision moving forward with treatment options. At the present time, the patient relays that she is "not doing anything" regarding her squamous cell carcinoma of the left lung until she gets out of [facility]. She has been very clear along that she does not want any chemotherapy or radiation. Dr. Morel had indicated if the patient does not wish to pursue immunotherapy he would be appropriate to transition to hospice services. The patient continues to have significant debility. In review with nursing staff she has therapy services with PT for approximately 2 more weeks before she will be discharged she is not making physical gains with therapy services. She refuses to get up out of bed stating the discomfort to her buttocks from moisture associated dermatitis being the main factor. When she was on isolation due to Covid19 in early November 2020 she elected not to get up with nursing staff out of bed. In exploring that further today she related that the height of the nursing staff was not inducible for her to get up out of bed. Presently she is focused on the mattress as the source of her skin irritation. Wound career services representative was consulted on 12/16/2020 and she has started on cell on zinc cream twice a day and with every brief change. She is also to not be wearing any depends. The patient believes that the rubber mattress is the cause of her skin not being able to drive despite education and reassurance. Her mattress was changed last week per facility staff. She has had weight loss that she attributes to facility food. There is no recent weight since early October 2020 on the patient. Requested that this be obtained today and the patient is worried regarding her present weight as she has noticed muscle atrophy as well. She is consuming more meals and is on a protein liquid supplementation for wound healing and protein calorie malnutrition. Patient is seen sitting up in bed, well-groomed and alert. Past Medical History: Patient has a past medical history significant for migraines, thyroid nodule, GERD, incontinence, chronic sinusitis, chronic back pain, left foot drop, balance issues, lumbar radiculopathy, nocturnal leg cramps, osteoarthritis, left hip hemiarthroplasty, squamous cell carcinoma of the left lung 2019, COVID-19 2019, HRT.Patient has a past medical history significant for migraines, thyroid nodule, GERD, incontinence, chronic sinusitis, chronic back pain, left foot drop, balance issues, lumbar radiculopathy, nocturnal leg cramps, osteoarthritis, left hip hemiarthroplasty, squamous cell carcinoma of the left lung 2019, COVID-19 2019, HRT. Social History - Living Situation Living arrangement: At home Living Situation: Alone Support System: Patient is presently residing at [facility] for rehabilitation. Prior to admission at [facility] she was residing alone and apartment in [place]. She is . 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 She has 3 children and essentially rates them as a single mother. Her 2 sons are still in [place] and her daughter, Sharmin resides locally on [facility] with contact number [phone]. Medications/Allergies - Medications Home Medications: Ambulatory Orders Medication Instructions Recorded Confirmed Bisacodyl Supp [Dulcolax Supp] 10 mg NE DAILY PRN MDD if senna 09/05/20 12/12/20 not effective Capasicin 0.1% 1 applic TP BID MDD b/l knees 09/05/20 12/12/20 Magnesium Hydroxide [Milk of 30 ml PO DAILY PRN MDD if no BM in 09/05/20 12/12/20 Magnesia] 2 days Montelukast [Singulair] 10 mg PO QPM 09/05/20 12/12/20 Multivitamin [Daily Multiple 1 tab PO DAILY 09/05/20 12/12/20 Vitamin] Senna [Senokot] 1 tab .ROUTE BID PRN 09/05/20 12/12/20 polyethylene glycoL 3350 [Miralax] 17 g PO BID PRN 09/05/20 12/12/20 Cetirizine [ZyrTEC] 10 mg PO DAILY PRN MDD allergies 10/02/20 12/12/20 Cyclobenzaprine HCl 5 mg PO QPM PRN 10/02/20 12/12/20 Estradiol [Estrace] 1 mg PO DAILY 10/02/20 12/12/20 Fluticasone/Vilanterol [Breo 1 puffs IH DAILY 10/02/20 12/12/20 Ellipta 100-25 Mcg INH] Magnesium Oxide [Mag Ox] 800 mg PO DAILY 10/02/20 12/12/20 medroxyPROGESTERone [Provera] 2.5 mg PO DAILY 10/02/20 12/12/20 Albuterol Sulfate [Proair Hfa 2 puffs IN Q4HR PRN 12/12/20 12/12/20 Inhaler] Aspirin/Acetaminophen/Caffeine 2 tab PO Q6HR PRN MDD NTE 8tab/24h 12/12/20 [Excedrin Migraine Caplet] Calcium Carbonate [Tums (Calcium 2 tab PO Q4H PRN 12/12/20 12/12/20 Carbonate 500mg)] Ondansetron HCl [Zofran] 4 mg PO Q6H PRN 12/12/20 12/12/20 Oxycodone HCl/Acetaminophen 1 tab PO Q4H PRN MDD d/c after 7 12/12/20 12/12/20 [Percocet 2.5-325 mg Tablet] days if no use Oyster Shell Tablet 1 tab PO DAILY 12/12/20 Senna [Senokot] 1 tab PO BID 12/12/20 12/12/20 guaiFENesin [Guaifenesin ER] 1 tab PO BID PRN 12/12/20 12/12/20 Acetaminophen [Acetaminophen Extra 500 mg PO Q4H 12/19/20 12/19/20 Strength] Ibuprofen 200 mg PO Q6H PRN 12/19/20 12/19/20 Selan Zinc Cream 1 applic TP BID MDD and PRN to 12/19/20 MASD areas - Allergies Allergies/Adverse Reactions: Allergies Allergy/AdvReac Type Severity Reaction Status Date / Time Sulfa (Sulfonamide Allergy Unknown Verified 10/02/20 19:47 Antibiotics) Review of Systems - Constitutional Constitutional: reports: Weight loss (no recent weight since October 2020 and requested today. Has increased her quantity of meals.). denies: Fever - Eyes Eyes: reports: Corrective lenses - Ears, Nose & Throat Ears, Nose & Throat: denies: Nasal congestion, Sore throat, Hoarseness - Cardiovascular Cardiovascular: denies: Edema - Respiratory Respiratory: denies: Cough, Wheezing - Gastrointestinal Gastrointestinal: reports: Constipation (improved. Patient elected to stop her oxycodone/acetaminophen and her pain is "tolerable" so she could regulare more on her bowels.), Poor appetite (Increased intake of facility food. Her daughter brings her food and her fridge in her room is stocked with items.). denies: Vomiting - Musculoskeletal Musculoskeletal: reports: Back pain, Stiffness, Joint pain, Assistive devices, Transfer issues - Integumentary Integumentary: reports: Other (dermatitis due to moisture, evaluated by wound career services representative for facility) - Neurological Neurological: reports: General weakness, Memory problems - Endocrine Endocrine: reports: Other (Thyroid nodule). denies: Hypothyroidism - Hematologic/Lymphatic Hematologic/Lymph: reports: Other (No history of recurrent infections) - All Other Systems All Other Systems: reports: Reviewed and negative Physical Exam - Vital Signs Temperature: 36.6 C Pulse Rate: 83 O2 Saturation: 95 (on RA) Blood Pressure: 109/50 - Physical Exam General Appearance: positive: No acute distress, Alert, Cachetic Eyes Bilateral: positive: Other (+corrective lenses) ENT: positive: No signs of dehydration Neck: positive: Trachea midline Cardiovascular: positive: Regular rate & rhythm, No murmur Respiratory: positive: No respiratory distress, Breath sounds nml. negative: Wheezes Abdomen: positive: Non-tender, Soft, Nml bowel sounds Skin: positive: Pallor, Other (unable to visualize buttocks outside of pictures but erythema noted consistent with moisture associated dermatitis, see nursing and wound career services representative notes for full details) Extremities: positive: No pedal edema, Other (+muscular atrophy noted) Neurologic/Psychiatric: positive: Oriented x3, Weakness Palliative Care - POLST Patient has POLST: Yes POLST Status: DNR, Comfort Measures Pain: Comment (has stopped her oxycodone/acetaminophen as it contributed to her constipation and states her pain is Tolerable" and she did not want to be "addicted" to pain medication. She has itching to her buttocks due to dermatitis with new cream started 12/16/2020.) Constipation: Yes, Opoid induced (improved after discontinuing opoids) Performance Status: PPS 40% - Palliative Care Discussion: The patient continues to express positivity that she will "escape this senior care" when referencing [facility] as she "hates it here." She does recognize that in her present state she would be unable to go home to her apartment as she would be unable to go to the restroom or the kitchen to prepare meals. Prior to her admission to [facility] her mobility was quite limited and isolated to her apartment. She has not been making functional gains with physical therapy and thus would need 24/ support within her home environment with if she were to return to her apartment which the patient is not open to excepting at this time. In regards to advance care planning and management of her squamous cell carcinoma of the left lung she is resistant to talking further outside of her desire to live to see "a little bit of summer." She deflects by stating that the length of time that she has had cancer is unknown and she may be able to continue and have a longer period of time to live. Introduced the concept of hospice services today as the patient presently is electing to not proceed with any type of treatment such as immunotherapy that was presented by oncology. The patient was not open to present discussion regarding this as she "does not want another doctor." We will continue to work with the patient and build further report as often times she is more open to idea as if she is the one that suggests or introduces it. The patient continues to express her frustration and lack of control in her present environment. She recently requested her pain medication regimen to be altered so she would no longer be receiving routine opioid therapy. She has a fear of becoming addicted and presently reports that her pain is tolerable. Reviewed with the patient today the need for adequate pain management and to be open with the nursing staff if her regimen needs to be adjusted as she will not make functional gains in therapy if her pain is not well controlled and manage and she voiced understanding. Impression and Recommendations - Palliative Care Impression: This is a 75-year-old female with squamous cell carcinoma of the left lung diagnosed in September 2020 with a past history of tobacco abuse, weight loss, and functional debility status post left hip hemiarthroplasty. The patient is not making functional gains with physical therapy services 1 site and it is unlikely that she would be able to return to her home apartment without 24/7 support. The present time, the patient is opting to make a choice with not choosing to make a decision regarding treatment of her squamous cell carcinoma with immunotherapy until she is out of the facility. Introduced to the patient today that by not making a decision regarding treatment is in fact a decision. We will need to continue to build rapport, explore goals of care, provide care coordination and anticipatory guidance. Recommendations/Counseling Done: 1. Squamous cell carcinoma of the left lung. New diagnosis as of 09/2020. Patient has a past history of tobacco abuse. She has had consultation with oncologist, Dr. Sabas Morel via telemedicine with last follow-up 12/11/2020. The patient has elected not to proceed with repeat biopsy of her lung mass for molecular testing for targeted immunotherapy. She has been offered immunotherapy but at the present time, is electing not to pursue any treatment options given she does not present with any symptom burden. She has a desire to readdress potential treatment options when she leaves [facility] however, this is not appearing to be a realistic expectation given her poor functional gains with physical therapy services. Introduced hospice services but patient was not open to the role of hospice services at this time. Continue to build rapport with the patient and provide emotional support for her and her daughter, Sharmin. 2. Physical deconditioning and debility. Patient continues to work with skilled services at [facility] for rehabilitation. However, she is not making functional gains and is unlikely to be able to return to her apartment independently and would require 24/7 supervision. The patient is not open to going to another facility setting as it would take her off the [place]. Fall precautions. 3. 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 Continue application of saline sink as ordered by wound career services representative. Strongly encouraged the patient to allow new mattress and cream time to take effect as results are not immediate. Changes were made in the last 48 to 72 hours. Continue to encourage repositioning while in bed. She is on a progressive reducing air mattress. She is at high risk for skin breakdown given her physical deconditioning and weight loss. 4. History of weight loss. Multifactorial due to underlying diagnosis of squamous cell carcinoma of the left lung as well as food options offered at the facility are not appealing to the patient. Upon review with the patient's daughter today the patient has had a longstanding complex relationship with food with calorie restriction most of her life. However, the patient reports that she is consuming more of the facility food as well as protein supplementation. There has not been a recent weight since October 2020 and this has been requested from the facility staff for obtainment. We will follow weight trends. 5. Advanced care planning. Patient has POLST in place as DN AR with comfort measures. The patient continues to have in minimal to no symptom burden related to her cancer diagnosis of squamous cell carcinoma of the left lung therefore, making the diagnosis less realistic for her. She has a desire to continue to live and see the early part of summer. At the present time she is electing not to pursue treatment with immunotherapy and will readdress when she is out of [facility], not recognizing that this may not be a realistic expectation. She continues to perseverate about different aspects of her life that are not within her control for example, medications or the mattress that she is on. This is on a weekly basis that she changes her perseveration. Continue to provide support and build rapport. And will need to continue to tease out goals of care and advance care planning. Total time spent 60 minutes with greater than 50% of this spent in counseling and coordination of care with patient; review of physical therapy gains and nursing concerns with nursing staff at facility; review of oncology notes; examination fo patient; supportive listening; introduction of hospice service and anticipatory guidance. Contacted the patient's daughterSharmin at [phone] we discussed in regarding recent visit and plan of care with questions answered and addressed. Supportive listening provided to the daughter. Disclaimer: The chart note was formulated using voice recognition technology and unfortunately sound alike errors may occur.
== END 2020-12-18 10:26 | disposition home or self-care (01) ==
LOC: PC 10:25
PROVIDERS: ATTEND Nurse Practitioner Family
DX: Z51.5 Encounter for palliative care (principal); C34.92 Malignant neoplasm of unspecified part of left bronchus or lung; R53.81 Other malaise; L30.8 Other specified dermatitis; R63.4 Abnormal weight loss; Z87.891 Personal history of nicotine dependence; Z66 Do not resuscitate
CPT/HCPCS: 99310

== ENCOUNTER 2020-12-25 13:25 | Outpatient (CLI) | payer MEDICARE, OTHER ==
--- NOTE | 2020-12-25 17:59 | CONSULTATION NOTE ---
Palliative Care Follow Up - Referral Referring Provider: Dr. Alen Ramsey Time of Visit: [id number] Referral setting: [facility] Facility Referral Reason: Weight loss/Mositure associated dermatitis/Lung CA/Debility - Information Sources Records reviewed: Previous records reviewed History/Review of Systems obtained from: Patient, Nursing (ALAINA Holguin) - History of Present Illness Update Brief HPI Update: This is a 75-year-old female seen and evaluated today in follow-up at [facility] in regards to debility, weight loss, squamous cell carcinoma of the left lung, moisture associated dermatitis and advance care planning. Please see history dictated on 09/05/2020 for further details. The patient continues to work with in-house physical therapy but now has been reduced to coverage through Medicare part B which allows services 3 times per week. The patient is upset and disheartened regarding these changes as she is not open to working with getting up with staff that are shorter in stature than her with nursing or caregivers for fear of falling. She continues to work with physical therapy ambulating with the use of a gait belt. She has not had any falls. Her daughter is to bean picker a new foot brace to reduce her foot drop on the left side. Per physical therapy she is requiring 20% assistance Lesion. Strongly encouraged the patient to speak to nursing staff on the days physical therapy is not attending to have a plan to get up out of bed and continue to make progress is her ultimate goal is to return home. She continues to report discomfort to her buttocks due to moisture associated dermatitis. She continues to be fixated that the facility mattress is the source of her skin irritation. She had a wound consult on 12/16/2020 with recommendations to apply selan zinc cream to affected sites. The patient feels like her bilateral buttocks are "on fire" and she cannot get in a comfortable position. She is also limited in her ability to get up out of bed to use a bedside commode or the bathroom due to her underlying debility resulting in increased moisture. Due to her inability to position change adequately in the bed the patient's heels are now often touching the surface of the mattress and not floating. She is reporting discomfort to her bilateral heels developing. Outside of this comfort to her bilateral buttocks she is not having any reports of generalized pain since discontinuation of opioid therapy. She remains on routine acetaminophen for pain management. The patient has experienced significant weight loss from early October 2020 when she weighed approximately 130 pounds and is now at 117.6 pounds as of 12/19. The patient refuses to drink Ensure. She is consuming the liquid protein twice daily. She is also increasing her oral intake of the facility food as her weight most of her adult life has been 130 to 135 pounds. She reports that she is forcing herself to eat even though she is not really hungry. Patient is seen sitting up in bed with eyeglasses in place. No acute distress. Past Medical History: Patient has a past medical history significant for migraines, thyroid nodule, GERD, incontinence, chronic sinusitis, chronic back pain, left foot drop, balance issues, lumbar radiculopathy, nocturnal leg cramps, osteoarthritis, left hip hemiarthroplasty, squamous cell carcinoma of the left lung 2019, COVID-19 2019, HRT.Patient has a past medical history significant for migraines, thyroid nodule, GERD, incontinence, chronic sinusitis, chronic back pain, left foot drop, balance issues, lumbar radiculopathy, nocturnal leg cramps, osteoarthritis, left hip hemiarthroplasty, squamous cell carcinoma of the left lung 2019, COVID-19 2019, HRT. Social History - Living Situation Living arrangement: At home Living Situation: Alone Support System: Patient is presently residing at [facility] for rehabilitation. Prior to admission at [facility] she was residing alone and apartment in [place]. She is . 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 She has 3 children and essentially rates them as a single mother. Her 2 sons are still in [place] and her daughter, Sharmin resides locally on [facility] with contact number [phone]. 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 She also presently does not have room within her apartment walkways for a wheelchair or walker to easily pass given her decorative decor. Medications/Allergies - Medications Home Medications: Ambulatory Orders Medication Instructions Recorded Confirmed Bisacodyl Supp [Dulcolax Supp] 10 mg FL DAILY PRN MDD if senna 09/05/20 12/12/20 not effective Capasicin 0.1% 1 applic TP BID MDD b/l knees 09/05/20 12/12/20 Magnesium Hydroxide [Milk of 30 ml PO DAILY PRN MDD if no BM in 09/05/20 12/12/20 Magnesia] 2 days Montelukast [Singulair] 10 mg PO QPM 09/05/20 12/12/20 Multivitamin [Daily Multiple 1 tab PO DAILY 09/05/20 12/12/20 Vitamin] Senna [Senokot] 1 tab .ROUTE BID PRN 09/05/20 12/12/20 polyethylene glycoL 3350 [Miralax] 17 g PO BID PRN 09/05/20 12/12/20 Cetirizine [ZyrTEC] 10 mg PO DAILY PRN MDD allergies 10/02/20 12/12/20 Cyclobenzaprine HCl 5 mg PO QPM PRN 10/02/20 12/12/20 Estradiol [Estrace] 1 mg PO DAILY 10/02/20 12/12/20 Fluticasone/Vilanterol [Breo 1 puffs IH DAILY 10/02/20 12/12/20 Ellipta 100-25 Mcg INH] Magnesium Oxide [Mag Ox] 800 mg PO DAILY 10/02/20 12/12/20 medroxyPROGESTERone [Provera] 2.5 mg PO DAILY 10/02/20 12/12/20 Albuterol Sulfate [Proair Hfa 2 puffs IN Q4HR PRN 12/12/20 12/12/20 Inhaler] Aspirin/Acetaminophen/Caffeine 2 tab PO Q6HR PRN MDD NTE 8tab/24h 12/12/20 12/12/20 [Excedrin Migraine Caplet] Calcium Carbonate [Tums (Calcium 2 tab PO Q4H PRN 12/12/20 12/12/20 Carbonate 500mg)] Ondansetron HCl [Zofran] 4 mg PO Q6H PRN 12/12/20 12/12/20 Oxycodone HCl/Acetaminophen 1 tab PO Q4H PRN MDD d/c after 7 12/12/20 12/12/20 [Percocet 2.5-325 mg Tablet] days if no use Oyster Shell Tablet 1 tab PO DAILY 12/12/20 Senna [Senokot] 1 tab PO BID 12/12/20 12/12/20 guaiFENesin [Guaifenesin ER] 1 tab PO BID PRN 12/12/20 12/12/20 Acetaminophen [Acetaminophen Extra 500 mg PO Q4H 12/19/20 12/19/20 Strength] Ibuprofen 200 mg PO Q6H PRN 12/19/20 12/19/20 Selan Zinc Cream 1 applic TP BID MDD and PRN to 12/19/20 MASD areas - Allergies Allergies/Adverse Reactions: Allergies Allergy/AdvReac Type Severity Reaction Status Date / Time Sulfa (Sulfonamide Allergy Unknown Verified 10/02/20 19:47 Antibiotics) Review of Systems - Constitutional Constitutional: reports: Weight loss (weight 117.6lb 12/19/2020, previous 130lb October 2020). denies: Fever, Poor appetite (reports increased food consumption) - Eyes Eyes: reports: Corrective lenses - Ears, Nose & Throat Ears, Nose & Throat: reports: Other (nasal dryness--requesting saline nasal spray and has home humidifer in her room). denies: Sore throat, Hoarseness - Cardiovascular Cardiovascular: reports: Decr. exercise tolerance. denies: Chest pain, Edema - Respiratory Respiratory: denies: Cough, Wheezing - Gastrointestinal Gastrointestinal: reports: Constipation (improved. Patient elected to stop her oxycodone/acetaminophen and her pain is "tolerable" so she could regulate her bowels without medicatoins and she is having more frequent bowel movements.). denies: Nausea, Vomiting - Genitourinary Genitourinary: denies: Dysuria - Musculoskeletal Musculoskeletal: reports: Back pain, Stiffness, Joint pain, Assistive devices (walker), Transfer issues - Integumentary Integumentary: reports: Pruritis (b/l buttocks), Other (dermatitis due to moisture to buttocks, evaluated by wound critical care unit nurse for facility. new reports of discomfort to b/l heels) - Neurological Neurological: reports: General weakness, Memory problems (improved with discontinuation of opioid therapy) - Endocrine Endocrine: reports: Other (Thyroid nodule). denies: Hypothyroidism - Hematologic/Lymphatic Hematologic/Lymph: denies: Recurrent infections - All Other Systems All Other Systems: reports: Reviewed and negative Physical Exam - Vital Signs Temperature: 36.6 C Pulse Rate: 95 O2 Saturation: 98 (on RA) Blood Pressure: 102/56 - Physical Exam General Appearance: positive: No acute distress, Alert, Cachetic Eyes Bilateral: positive: Other (+corrective lenses; b/l temporal wasting) ENT: positive: No signs of dehydration Neck: positive: Trachea midline Cardiovascular: positive: Regular rate & rhythm, No murmur Respiratory: positive: No respiratory distress, Breath sounds nml Abdomen: positive: Non-tender, Soft, Nml bowel sounds. negative: Distended Skin: positive: Pallor, Other (erythema noted to b/l buttocks consistent with moisture associated dermatitis without open areas and no discharge. Patient reports localized pruritus to site. Blanchable erythema to b/l heels that are tender and nonboggy.) Extremities: positive: No pedal edema, Other (+muscular atrophy noted) Neurologic/Psychiatric: positive: Oriented x3, Weakness, Other (frustrated with her present circumstances in this facility and her limitations in her ability to return home) Palliative Care - POLST Patient has POLST: Yes POLST Status: DNR, Comfort Measures Pain: Pain unchanged Performance Status: Patient continues to display a lack of motivation at times refusing physical therapy services and also not conceding with working with staff that are not physical therapist to get out of bed and improve her walking and functional abilities dependently. She has not had any recent falls. PPS 40% - Palliative Care Discussion: Hearing from physical therapy that her frequency of visits will be reduced from 5 times a week to 3 times a week due to insurance coverage has resulted in her feeling extremely overwhelmed and upset. She relays that she has "had it" with being in this facility and has the desire to return home for "however along that may be." She recognizes that in her presence state she is not able to be independent in her apartment. She is placing the expectation that her daughter, Sharmin will oversee her caregiving needs despite the fact that the patient's daughter has her own family and responsibilities including a job to attend to. Did introduce the idea to the patient that may be able to work to goals with an ambulatory plan to return home but recognizing that even with this plan and assistance from home health physical therapy this is a new not a long-term program or solution. But ultimately, a safety plan would be to be in place in order for the patient return home safely to avoid risk of sequelae such as a second fall that would result in a fracture given her state of protein calorie malnutrition. The patient continues to focus on short-term goals such as getting out of the facility and does not wish to focus on a bigger picture such as her overall declining health and weight status tied to her diagnosis of squamous cell carcinoma of the left lung and addressing that. She appears to be going through various stages of grief In regards to her cancer diagnosis. At times, she recognizes her limited mobile mass mortality and is accepting that and then will transition to anger and at other times deny all. She will bounce in [id number] through the various stages of grief and provided support not only to the patient but the patient's daughter in recognizing the symptoms. Impression and Recommendations - Palliative Care Impression: This is a 75-year-old female with squamous cell carcinoma of the left lung diagnosed in September 2020 with a past history of tobacco abuse, weight loss, and functional debility status post left hip hemiarthroplasty. The patient has made some strides with physical therapy but at the present time it is unclear if she would be able to be safe to discharge to the home environment without additional oversight and caregiving support. She is scheduled to have a care plan meeting with the facility and her daughter on 12/26/2020 to discuss. Palliative care to continue to explore goals of care, provide care coordination and anticipatory guidance. Recommendations/Counseling Done: 1. Moisture associated dermatitis to bilateral buttocks with pruritus. Initiate hydrocortisone 1% cream apply to bilateral buttocks twice daily before selan zinc application x1 week then discontinue for reduction of pruritus and comfort. Continue application of selan zinc As previously ordered. Continue to encourage repositioning while in bed. She is on a pressure reducing air mattress. She is at high risk for skin breakdown given her physical deconditioning and weight loss. 2. Bilateral heel pain due to pressure. Skin remains intact. Encouraged the patient to continue to float her heels and request repositioning in bed to prevent sequelae from pressure. Request application of skin prep to bilateral heels twice a day x7 days for protection. 3. Physical deconditioning and debility. Patient continues to work with physical therapy services at [facility] and with ambulation is presently only at 20% assistance. However, she is at high risk for fall given her underlying multiple comorbidities, left foot drop, and clutter of her home environment if she were to return home. Is unclear if she could safely return home to her apartment without requiring 24/7 supervision. The patient's daughter has been working on [place] [employer] application for additional caregiving support. Fall precautions. Continue to monitor functional gains and ability to return home as deemed appropriate by facility and rehabilitation recommendations. 4. Protein calorie malnutrition. The patient has had an approximately 13 pound weight loss that is unintentional since early October 2020. This is likely indicative of her underlying squamous cell carcinoma of the life lung as well as the patient's history and relationship with food. She declines Ensure supplementation. She continues on protein supplementation twice daily. Encouraged to have small frequent meals throughout the day. Continue to monitor weight loss trends. 5. Advance care planning. Patient has POLST in place as DN AR with comfort measures. She continues to have minimal symptom burden related to her squamous cell carcinoma of the left lung diagnosis outside of of weight loss and protein calorie malnutrition. She continues to have the ultimate desire to return home and to function independently. She did have limited mobility prior to her fall with left hip fracture within her home environment. She continues to express motivation to work with therapy services and to gain her strength and ultimately return home however, she does not always follow through with these plans most specifically with working with other members of the facility staff that are not in the rehabilitation department for fear of falling. Supportive listening provided to the patient.
== END 2020-12-25 13:26 | disposition home or self-care (01) ==
LOC: PC 13:25
PROVIDERS: ATTEND Nurse Practitioner Family
DX: Z51.5 Encounter for palliative care (principal); L30.8 Other specified dermatitis; M79.672 Pain in left foot; M79.671 Pain in right foot; R53.81 Other malaise; E46 Unspecified protein-calorie malnutrition; C34.90 Malignant neoplasm of unspecified part of unspecified bronchus or lung; Z86.16 Personal history of COVID-19; Z87.891 Personal history of nicotine dependence; Z96.642 Presence of left artificial hip joint; Z66 Do not resuscitate
CPT/HCPCS: 99310

== ENCOUNTER 2021-01-10 13:10 | Outpatient (CLI) | payer MEDICARE, OTHER ==
--- NOTE | 2021-01-10 14:52 | CONSULTATION NOTE ---
Palliative Care Follow Up - Referral Referring Provider: Dr. Alen Ramsey Time of Visit: [id number] Referral setting: Intermediate Facility Referral Reason: Weight loss/Syncope/Lung Ca - Information Sources Records reviewed: Previous records reviewed History/Review of Systems obtained from: Patient, Nursing (ALAINA Holguin), Other (social work, Ambar) - History of Present Illness Update Brief HPI Update: This is a 75-year-old female who was seen and evaluated today in follow-up at [facility] in regards to debility, weight loss, squamous cell carcinoma of the left lung, recent syncopal episode and advance care planning. Please see history dictated on 09/05/2020 for further details. The patient continues to work with in-house physical therapy but is now under Medicare part B with services allotted 3 times per week. Facility staff report that the patient is working minimally with physical therapy. Per her report she has not had any falls. Her ultimate goal is to be able to utilize the commode perceiving that if she is able to ambulate to her bathroom in her apartment then she would be able to go home with a wheelchair. However, rehabilitation services have recommended 31/05 support but this has not been a palatable option for the patient. She has a follow-up appointment with orthopedics on Wednesday, 01/13 with obtainment of a boot for her left foot drop which she is hoping will assist with her ability to walk. She is presently completing a course of amoxicillin which she is scheduled to and 01/11/2021 for sinusitis. The patient has a longstanding history of sinus problems and has had sinus surgery in the past. She reports that her headaches have improved and today she has not taken any medication such as Excedrin Migraine. She has reported frequency of sinus headaches that have responded to Excedrin Migraine. She is utilizing her saline spray and is reporting crusting to her bilateral eyelids without visual changes. Today, the patient reports that she is having increased frequency of bowel movements which is not supported when discussed with facility staff. Her bowel move meant consistency is formed, and not loose indicative of any underlying C. difficile given her recent antibiotic administration. She also reports some mild nausea and therefore has refused her medications today and has not requested her as needed O. Danza Saulo which this DIVIDEND DEPOSIT ENTRY CLERK encouraged the patient to allow to be administered. Her moisture associated dermatitis to her bilateral buttocks had resolved earlier this week but is now returned. Her daughter has provided a mattress cover for facility staff to place on the mattress as the patient continues to perceive that she is allergic to the plastic mattress even though it is not directly touching her skin. Her weight obtained on Wednesday but this was not recorded. Last recorded weight was 117.6 pounds as of 12/19 had in early October 2020 she weighed 130 pounds. Requested that physical therapy obtain her weight when working with her today. When working with physical therapy on Wednesday she had a syncopal episode where she was lightheaded. She does have a history of her blood pressure being a lower than normal range but no prior history of syncopal episodes. She is trying to consume more fluids and increased her sodium intake to avoid a future syncopal episode. She denies chest pain or palpitations. Patient is seen sitting up in bed with eyeglasses in place watching television. No apparent distress. Past Medical History: Patient has a past medical history significant for migraines, thyroid nodule, GERD, incontinence, chronic sinusitis, chronic back pain, left foot drop, balance issues, lumbar radiculopathy, nocturnal leg cramps, osteoarthritis, left hip hemiarthroplasty, squamous cell carcinoma of the left lung 2019, COVID-19 2019, HRT. Social History - Living Situation Living arrangement: At home Living Situation: Alone Support System: Patient is presently residing at [facility] for rehabilitation. Prior to admission at [facility] she was residing alone in an apartment in [place]. She is . 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 She has 3 children and essentially rates them as a single mother. Her 2 sons are still in [place] and her daughter, Sharmin resides locally on [facility] with contact number [phone]. During the last care conference meeting the rehabilitation department advised the patient and her daughter that the recommendation is 24 support. The patient does not qualify for [facility] for caregiving hours at home. She continues to receive therapy services through Medicare Part B. Medications/Allergies - Medications Home Medications: Ambulatory Orders Medication Instructions Recorded Confirmed Bisacodyl Supp [Dulcolax Supp] 10 mg VT DAILY PRN MDD if senna 09/05/20 12/12/20 not effective Capasicin 0.1% 1 applic TP BID MDD b/l knees 09/05/20 12/12/20 Magnesium Hydroxide [Milk of 30 ml PO DAILY PRN MDD if no BM in 09/05/20 12/12/20 Magnesia] 2 days Montelukast [Singulair] 10 mg PO QPM 09/05/20 12/12/20 Senna [Senokot] 1 tab PO Q4H PRN 09/05/20 12/12/20 polyethylene glycoL 3350 [Miralax] 17 g PO BID PRN 09/05/20 12/12/20 Cyclobenzaprine HCl 5 mg PO QPM PRN 10/02/20 12/12/20 Fluticasone/Vilanterol [Breo 1 puffs IH DAILY 10/02/20 12/12/20 Ellipta 100-25 Mcg INH] Aspirin/Acetaminophen/Caffeine 2 tab PO Q6HR PRN MDD NTE 8tab/24h 12/12/20 12/12/20 [Excedrin Migraine Caplet] Calcium Carbonate [Tums (Calcium 2 tab PO Q4H PRN 12/12/20 12/12/20 Carbonate 500mg)] Ondansetron HCl [Zofran] 4 mg PO Q6H PRN 12/12/20 12/12/20 guaiFENesin [Guaifenesin ER] 1 tab PO BID PRN 12/12/20 12/12/20 Acetaminophen [Acetaminophen Extra 500 mg PO Q4H 12/19/20 12/19/20 Strength] Ibuprofen 200 mg PO Q6H PRN 12/19/20 12/19/20 Selan Zinc Cream 1 applic TP BID MDD and PRN to 12/19/20 MASD areas Loperamide HCl [Imodium A-D] PRN MDD NTE 4tab/day 01/10/21 Oxycodone HCl/Acetaminophen 0.5 tab PO Q4H PRN 01/10/21 01/10/21 [Percocet 2.5-325 mg Tablet] Pepto Bismol Suspension 30 ml PO Q1H PRN MDD NTE 240mL/24hr 01/10/21 Phenyleph/Mineral Oil/Petrolat 1 appful VT Q6H PRN 01/10/21 01/10/21 [Preparation H Ointment] Simethicone [Mylicon] 1 tab PO Q4H PRN 01/10/21 01/10/21 - Allergies Allergies/Adverse Reactions: Allergies Allergy/AdvReac Type Severity Reaction Status Date / Time Sulfa (Sulfonamide Allergy Unknown Verified 01/10/21 15:37 Antibiotics) Review of Systems - Constitutional Constitutional: reports: Poor appetite, Weight loss (weight 117.6lb 12/19/2020, previous 130lb October 2020; request weight to be obtained today). denies: Fever - Eyes Eyes: reports: Corrective lenses, Other (see hPI for further details) - Ears, Nose & Throat Ears, Nose & Throat: denies: Nasal discharge, Nasal congestion, Sore throat, Other (sinus pressure) - Cardiovascular Cardiovascular: reports: Decr. exercise tolerance (when ambulating across the room). denies: Palpitations, Chest pain, Edema - Respiratory Respiratory: denies: Cough, Wheezing - Gastrointestinal Gastrointestinal: reports: Diarrhea (perceives increased bowel movements in the last several days, see hPI), Nausea, Poor appetite. denies: Vomiting - Genitourinary Genitourinary: denies: Dysuria - Musculoskeletal Musculoskeletal: reports: Stiffness, Assistive devices (walker), Transfer issues. denies: Joint pain - Integumentary Integumentary: reports: Other (mositure associated dermatitis) - Neurological Neurological: reports: General weakness, Headache (see HPI) - Endocrine Endocrine: reports: Other (Thyroid nodule). denies: Hypothyroidism - All Other Systems All Other Systems: reports: Reviewed and negative Physical Exam - Vital Signs Temperature: 36.0 C Pulse Rate: 85 O2 Saturation: 95 (on RA) Blood Pressure: 90/68 - Physical Exam General Appearance: positive: No acute distress, Alert, Cachetic Eyes Bilateral: positive: PERRL, Conjunctivae nml, Other (corrective lenses in place; b/l temporal wasting; mild crusting noted to right lower eyelid) ENT: positive: No signs of dehydration, Other (Sinsuses nontender to palpation; turbinates non-edematous) Neck: positive: Trachea midline. negative: Lymphadenopathy (R), Lymphadenopathy (L) Cardiovascular: positive: Regular rate & rhythm, No murmur Respiratory: positive: No respiratory distress, Breath sounds nml Abdomen: positive: Non-tender, Soft, Nml bowel sounds Skin: positive: Pallor, Other (visualized buttocks through photo with erythema to buttocks associated with moisture associated dermatitis. B/l heels intact without blanchable erythema (resolved).) Extremities: positive: No pedal edema Neurologic/Psychiatric: positive: Oriented x3, Weakness, Other (Maintains frustrated with her present circumstances within the facility and lack of control) Palliative Care - POLST Patient has POLST: Yes POLST Status: DNR, Comfort Measures Pain: No pain Constipation: No Performance Status: Patient continues to make minimal progress with physical therapy and this is not led to her ability to ambulate independently or perform functional daily's on her own. She has not had any recent falls. PPS 40% - Palliative Care Discussion: The patient continually has 1 thing after the other crop up in relation to her functional and health status. Most recently she has sustained a sinus infection and is completing a course of amoxicillin. She perceives the environment as a contributing factor for her development of sinusitis which has been previously a longstanding history for her due to her lack of control with the heating system and renovations being performed in the facility. Her strongest desire remains to return home despite rehabilitation making recommendations for 24/7 care. The patient continues to not perceive her abilities to care for herself with in her apartment setting and if she were able to return home is seeing that her daughter, Sharmin, would provide extensive support which may not be feasible. The patient is not open to looking at other caregiving options such as assisted living unless she fails living at home in her apartment. She does not wish to address her cancer diagnosis as she perceives she will " in 6 months or 4 months what difference does it make?" She has plans to continue to follow-up with oncology but will not do so until she is out of [facility]. Impression and Recommendations - Palliative Care Impression: This is a 75-year-old female with squamous cell carcinoma of the left lung diagnosed in September 2020 with a past history of tobacco abuse, with unintentional weight loss, functional debility status post left hip hemiarthroplasty and recent sinusitis. The patient continues to meet barriers and obstacles that she perceives is preventing her from obtaining her goals of returning home and recommendations have been made that she have 24/7 support if she were to return home to her apartment setting. The patient continues to struggle with her limitations within a controlled environment. Palliative care to continue to explore goals of care, provide care coordination and anticipatory guidance. Recommendations/Counseling Done: 1. Syncopal episode. Reported to occur during physical therapy earlier this week. This is likely multifactorial given the patient's muscular atrophy, typically low blood pressure reading, and decreased oral intake. Recommend obtaining orthostatics lying and sitting daily in the morning x5 days and request that this be faxed for this DIVIDEND DEPOSIT ENTRY CLERK to review upon completion with heart rate documented as well. Would continue to encourage oral hydration and addition of some sodium intake through food sources as the patient has been on a self-imposed sodium restriction previously. His vital signs are stable with orthostatics that may consider compression stockings when getting up out of bed for prevention of future episodes. 2.Mild blepharitis to bilateral eyelids. Mild crusting noted most pacifically to right lower eyelid. Request that moist warm compresses be applied 3 times daily for approximately 10 minutes for the next 7 days. Continue to monitor. 3. Perceived diarrhea. Continue to monitor patient's output as she has had recent antibiotic use and is at risk for C. difficile. Presently, the patient stools are reported to be formed and not indicative of underlying infection. Continue to monitor. 4. Protein calorie malnutrition. The patient has had an approximately 13 pound weight loss that has been unintentional since October 2020. This is likely indicative of her underlying squamous cell carcinoma of the left lung as well as her history and relationship with food. She has declined Ensure supplementation. She continues on protein supplementation twice daily. Requested that physical therapy obtain a weight today and record. Continue to encourage small frequent meals throughout the day. Continue to monitor weight loss trends. 5. Physical deconditioning and debility. Patient continues to work with physical therapy services at [facility] however, she has not been making strides and is unclear that she would be able to return home. She is optimistic with obtainment of a new foot brace to assist with her left foot drop which she will be able to ambulate. She does not qualify for [place] [facility] caregiving hours. Continue to provide support to the patient and daughter in balancing expectations. Fall precautions. Continue to monitor functional gains in ability within the facility. Total time spent 58 minutes with greater than 50% of this spent in counseling and coordination of care with patient, social work and nursing staff; examination of patient; supportive listening; review of pain and symptom management and anticipatory guidance. Contacted the patient's daughter, Sharmin and discussed concerns, plan of care with supportive listening provided. Disclaimer: The chart note was formulated using voice recognition technology and unfortunately sound alike errors may occur.
== END 2021-01-10 13:11 | disposition home or self-care (01) ==
LOC: PC 13:10
PROVIDERS: ATTEND Nurse Practitioner Family
DX: Z51.5 Encounter for palliative care (principal); M62.50 Muscle wasting and atrophy, not elsewhere classified, unspecified site; R63.8 Other symptoms and signs concerning food and fluid intake; H01.006 Unspecified blepharitis left eye, unspecified eyelid; H01.002 Unspecified blepharitis right lower eyelid; E46 Unspecified protein-calorie malnutrition; C34.92 Malignant neoplasm of unspecified part of left bronchus or lung; Z86.16 Personal history of COVID-19; Z87.891 Personal history of nicotine dependence; Z96.642 Presence of left artificial hip joint; Z66 Do not resuscitate
CPT/HCPCS: 99310

== ENCOUNTER 2021-01-13 07:00 | Outpatient (CLI) | payer MEDICARE, OTHER ==
--- NOTE | 2021-01-13 14:39 | XRAY Report ---
PROCEDURE: Ankle 3 View LT INDICATIONS: CONTRACTURE OF ACHILLES TENDON LEFT TECHNIQUE: 3 views of the ankle were acquired. COMPARISON: None. FINDINGS: No fracture. Tibiotalar joint degeneration. Scattered subchondral sclerosis and spurring. Soft tissues: No tibiotalar joint effusion. Achilles tendon appears normal. IMPRESSION: No definite fracture however follow-up radiographs in 10 days could be performed if the patient's sym ptoms do not improve to exclude occult fracture/assess for healing sclerosis. Chronic degenerative changes as above If the patient's pain or other symptoms persist, consider further evaluation of the Achilles tendon with MRI. Reviewed by: Gavin Celaya MD on 01/13/2021 2:37 PM PST Approved by: Gavin Celaya MD on 01/13/2021 2:37 PM PST Station ID: [id number]
== END 2021-01-13 23:59 | disposition home or self-care (01) ==
LOC: DI.N 07:00
PROVIDERS: ATTEND Orthopaedic Surgery
DX: M19.072 Primary osteoarthritis, left ankle and foot (principal)

== ENCOUNTER 2021-01-14 19:15 | Outpatient (CLI) | payer MEDICARE, OTHER ==
[2021-01-14 21:23] LABS: BASOPHILS # (AUTO) 0.1 10^3/uL (0.0-0.1); BASOPHILS % (AUTO) 0.4 %; EOSINOPHILS # (AUTO) 0.6 10^3/uL (0.0-0.7); HCT - HEMATOCRIT 30.3 % (37.0-47.0); HGB - HEMOGLOBIN 9.6 g/dL (12.0-16.0); LYMPHOCYTES # (AUTO) 2.4 10^3/uL (1.5-3.5); LYMPHOCYTES % (AUTO) 12.3 %; MEAN CORPUSCULAR HEMOGLOBIN 25.7 pg (27.0-31.0); MEAN CORPUSCULAR HGB CONC 31.7 g/dL (32.0-36.0); MEAN PLATELET VOLUME 9.5 fL (7.9-10.8); MONOCYTES # (AUTO) 1.2 10^3/uL (0.0-1.0); MONOCYTES % (AUTO) 6.1 %; NEUTROPHILS # (AUTO) 14.9 10^3/uL (1.5-6.6); NEUTROPHILS % (AUTO) 77.6 %; PLT - PLATELET COUNT 609 10^3/uL (130-450); RED BLOOD COUNT 3.74 10^6/uL (4.20-5.40); RED CELL DISTRIBUTION WIDTH 17.6 % (12.0-15.0); WHITE BLOOD COUNT 19.3 x10^3/uL (4.8-10.8)
[2021-01-14 21:35] LABS: ALBUMIN 2.6 g/dL (3.2-5.5); ALBUMIN/GLOBULIN RATIO 0.6 (1.0-2.2); BILIRUBIN,TOTAL 0.2 mg/dL (0.2-1.0); CALCIUM 8.9 mg/dL (8.5-10.3); CREATININE 0.6 mg/dL (0.4-1.0); POTASSIUM 4.3 mmol/L (3.5-5.0); TOTAL PROTEIN 7.2 g/dL (6.7-8.2)
== END 2021-01-14 23:59 | disposition home or self-care (01) ==
LOC: LAB.R 19:15
DX: R91.8 Other nonspecific abnormal finding of lung field (principal); R63.4 Abnormal weight loss; D64.0 Hereditary sideroblastic anemia
CPT/HCPCS: 80053; 85025

== ENCOUNTER 2021-01-24 09:00 | Outpatient (CLI) | payer MEDICARE, OTHER ==
--- NOTE | 2021-01-24 19:15 | CONSULTATION NOTE ---
Palliative Care Follow Up - Referral Referring Provider: Dr. 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 Please see history dictated on 09/05/2020 for further details. Since patient was last seen and evaluated by this provider she was received a dose of diflucan for vaginal candidiasis with resolution after completing a 10- day course of amoxicillin for sinusitis. The patient has a longstanding history of sinus problems and has had sinus surgery in the past. The patient today reports that she has had multiple surgeries performed to her right ear to due to past ear infections as a child. She is reporting that she is very sensitive to the air quality within the facility and typically wakes up with crusting to her bilateral eyelids as well as nasal congestion. She was previously on an antihistamine but this was discontinued per her request. Today, she reports to right inner ear pain for the last 2 days. No reported discharge. Denies increased headaches or double vision. In light of her recent leukocytosis on lab work performed on 01/14 and her right ear pain she is requesting for another 10- day course of amoxicillin today. The patient was noted to have guaiac positive And after persuasion allow the lab work to be obtained on 01/14 that demonstrated WBC 19.3, hemoglobin 9.6, hematocrit 30.3%, platelet 609, and neutrophil count 14.9. The patient has remained afebrile. The patient's facility provider ordered a chest x-ray for further evaluation of leukocytosis but this has continued to be declined by the patient. She denies cough, chest pain, or shortness of breath. The patient was seen and evaluated by orthopedics due to her left foot drop. Her left foot drop has been present for approximately 2.5 years after developing after one of her spinal surgeries. She is presently scheduled for surgery due to her left Achilles contracture next week with orthopedics per her report. Her present desire is to have the surgery, have 1 day recovery at [facility] and will therefore be able to walk and be independent at home and to then be admitted to hospice services Wednesday of next week. The facility provider, Dr. Rosa overseeing the patient's care during her stay at the facility has expressed his concerns for the patient to undergo a procedure to the orthopedist. The patient is aware that these concerns have been expressed to the orthopedist but believes that having red meat brought to her that is organic from her daughter will "solve all of my problems" and she will be able to proceed with surgery. The patient's weight has remained stable over the last month at 117 pounds obtained on 01/16/2021. However, the patient weighed 130 pounds in October 2020 with a 13 pound weight loss and 10% weight loss in the last 4 months. The patient continues to believe that this weight loss is due to the lack of variety of food at the facility. However, the patient has a small mini fridge in her room that is stocked with items for the patient to pick from of grocery items that her daughter has applied at the patient's request. The patient's daughter, Sharmin caldwell does shed light today that the patient used ohkh-ghp-[id number] weight loss drug Dexatrim consistently until it came off of the market. After that auts-tvz-kzklyhb diet pill was off the market then the patient utilized laxative such as senna and limiting her caloric intake to manage her weight. Today, the patient Reports that all pain medicines including Tylenol are con tributing to her having constipation. The patient continues to elect which medication she will and will not take including her bowel regimen medications. The patient was requested to have orthostatic blood pressure obtained over a series of several days however, the patient was often not allowing staff to obtain her vital signs and all lying and sitting position. The orthostatic blood pressures that were obtained and able to be reviewed by this provider do demonstrate evidence of orthostatic hypotension. The patient is seen laying down in her hospital bed with her eyeglasses in place watching television with an elevated volume. No apparent distress. Past Medical History: Patient has a past medical history significant for migraines, thyroid nodule, GERD, incontinence, chronic sinusitis, chronic back pain, left foot drop, balance issues, lumbar radiculopathy, nocturnal leg cramps, osteoarthritis, left hip hemiarthroplasty, squamous cell carcinoma of the left lung 2020, COVID-19 2019, HRT. Social History - Living Situation Living arrangement: senior care Support System: Patient is presently residing at [facility] for rehabilitation. Prior to admission at [facility] she was residing alone in an apartment in [place]. She is . 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 She has 3 children and essentially rates them as a single mother. Her 2 sons are still in [place] and her daughter, Sharmin resides locally on [address] with contact number [phone]. The patient continues to be quite adamant about her desire to return home and expects that her daughter, Sharmin will be able to provide caregiving support. She does recognize that the patient's daughter cannot provide all caregiving needed and her desire is to have surgery and then be stronger in order to return home. Rehabilitation department at [facility] has previously recommended that if the patient were to discharge from the facility that she requires 24/7 support. The patient's daughter, Sharmin has expressed that she is not for the task to provide 24/7 support and they have not been provided [place] PES caregiving hours and ultimately, the most suitable course of action would be for the patient to transition to long-term care at [facility]. Medications/Allergies - Medications Home Medications: Ambulatory Orders Medication Instructions Recorded Confirmed Bisacodyl Supp [Dulcolax Supp] 10 mg NM DAILY PRN MDD if senna 09/05/20 12/12/20 not effective Capasicin 0.1% 1 applic TP BID MDD b/l knees 09/05/20 12/12/20 Magnesium Hydroxide [Milk of 30 ml PO DAILY PRN MDD if no BM in 09/05/20 12/12/20 Magnesia] 2 days Montelukast [Singulair] 10 mg PO QPM 09/05/20 12/12/20 Senna [Senokot] 1 tab PO Q4H PRN 09/05/20 12/12/20 polyethylene glycoL 3350 [Miralax] 17 g PO BID PRN 09/05/20 12/12/20 Cyclobenzaprine HCl 5 mg PO QPM PRN 10/02/20 12/12/20 Fluticasone/Vilanterol [Breo 1 puffs IH DAILY 10/02/20 12/12/20 Ellipta 100-25 Mcg INH] Aspirin/Acetaminophen/Caffeine 2 tab PO Q6HR PRN MDD NTE 8tab/24h 12/12/20 12/12/20 [Excedrin Migraine Caplet] Calcium Carbonate [Tums (Calcium 2 tab PO Q4H PRN 12/12/20 12/12/20 Carbonate 500mg)] Ondansetron HCl [Zofran] 4 mg PO Q6H PRN 12/12/20 12/12/20 guaiFENesin [Guaifenesin ER] 1 tab PO BID PRN 12/12/20 12/12/20 Acetaminophen [Acetaminophen Extra 500 mg PO Q4H PRN 12/19/20 12/19/20 Strength] Ibuprofen 200 mg PO Q6H PRN 12/19/20 12/19/20 Selan Zinc Cream 1 applic TP BID MDD and PRN to 12/19/20 MASD areas Loperamide HCl [Imodium A-D] PRN MDD NTE 4tab/day 01/10/21 Oxycodone HCl/Acetaminophen 0.5 tab PO Q4H PRN 01/10/21 01/10/21 [Percocet 2.5-325 mg Tablet] Pepto Bismol Suspension 30 ml PO Q1H PRN MDD NTE 240mL/24hr 01/10/21 Phenyleph/Mineral Oil/Petrolat 1 appful NM Q6H PRN 01/10/21 01/10/21 [Preparation H Ointment] Simethicone [Mylicon] 1 tab PO Q4H PRN 01/10/21 01/10/21 Cetirizine [ZyrTEC] 10 mg PO DAILY 01/24/21 01/24/21 Sertraline [Zoloft] 25 mg PO DAILY 01/24/21 01/24/21 - Allergies Allergies/Adverse Reactions: Allergies Allergy/AdvReac Type Severity Reaction Status Date / Time Sulfa (Sulfonamide Allergy Unknown Verified 01/24/21 19:48 Antibiotics) Review of Systems - Constitutional Constitutional: reports: Poor appetite, Weight loss (weight 117lb 01/16/2021, previous 130lb October 2020). denies: Fever - Eyes Eyes: reports: Corrective lenses, Other (see hPI for further details). denies: Blurred vision - Ears, Nose & Throat Ears, Nose & Throat: reports: Ear pain (right ear), Nasal congestion (see HPI). denies: Hearing loss, Sore throat, Other (sinus pressure) - Cardiovascular Cardiovascular: reports: Other (orthostatic hypotension). denies: Palpitations, Chest pain, Edema - Respiratory Respiratory: denies: Cough - Gastrointestinal Gastrointestinal: reports: Constipation (see HPI), Nausea, Poor appetite. denies: Rectal bleeding, Vomiting - Genitourinary Genitourinary: denies: Dysuria - Musculoskeletal Musculoskeletal: reports: Stiffness, Assistive devices (walker), Transfer issues. denies: Joint pain - Integumentary Integumentary: reports: Other (mositure associated dermatitis buttocks) - Neurological Neurological: reports: General weakness. denies: Headache (see HPI) - Psychiatric Psychiatric: reports: Depression - Endocrine Endocrine: reports: Other (Thyroid nodule). denies: Hypothyroidism - Hematologic/Lymphatic Hematologic/Lymph: reports: Anemia - All Other Systems All Other Systems: reports: Reviewed and negative Physical Exam - Vital Signs Temperature: 36.6 C Pulse Rate: 99 O2 Saturation: 96 (on RA) Blood Pressure: 101/62 - Physical Exam General Appearance: positive: No acute distress, Alert, Cachetic Eyes Bilateral: positive: Normal inspection, Conjunctivae nml, Other (corrective lenses in place; b/l temporal wasting) ENT: positive: No signs of dehydration, Other (turbinates non-edematous; no PND or cobblestoning noted to orthopharynx; Right ear canal with minor cerumen that was removed with lighted currette and otoscope with no effusion or erythema to TM. HOwever, right TM tho intact with visible scarring. Left TM intact without erythema or effusion.) Neck: positive: Trachea midline. negative: Lymphadenopathy (R), Lymphadenopathy (L) Cardiovascular: positive: Regular rate & rhythm, No murmur Respiratory: positive: No respiratory distress, Breath sounds nml. negative: Rales Abdomen: positive: Non-tender, Soft, Nml bowel sounds Skin: positive: Pallor, Other (.B/l heels intact without erythema. Please see nursing notes for moisture associated dermatitis to b/l buttocks being followed by wound care team.) Extremities: positive: No pedal edema, Other (+left foot drop) Neurologic/Psychiatric: positive: Oriented x3, Weakness, Depressed mood/affect, Other (Maintains frustrated with her present circumstances within the facility and lack of control. She became tearful today when expressing her fear that she will be stuck in the facility and not leave.) Palliative Care - POLST Patient has POLST: Yes POLST Status: DNR, Comfort Measures Pain: No pain Nausea: None Anorexia: Moderate (4-6), Weight loss Depression: Moderate (4-6) Feelings of wellbeing/Perceived Quality of Life: Poor Constipation: Intermittent constipation - Palliative Care Discussion: The patient has now grasped onto the idea that she will immediately be able to walk again after having repair via surgery to her left Achilles contracture despite protein pallor calorie malnutrition as evidenced by her weight loss and low albumin, generalized muscular atrophy, and her poor track record with her participation with physical therapy up until this point. Despite lengthy review with the patient regarding her lab work obtained on January 14 demonstrating unexplained leukocytosis without further evaluation that it would be unlikely for surgery to be performed she believes that she will be present on the day of scheduled surgery, have lab work to be obtained and if leukocytosis is resolved she will proceed with surgery and if it is not then she perceives that she would be able to then transition to hospice services. Lengthy discussion had today with the patient in regards to her functional status and if she were to even have surgery performed in her weakened state she is unable to go home without 24/7 assistance and this would not be feasible with only her daughter caring for her. The patient does appear to recognize this and is open to transitioning to hospice services especially given the extra added layer of support and there may be a possibility that with planning and timing the patient may be able to go home with hospice and caregiving support closer to end-of-life. The patient expressed today, tearfully, that she is extremely worried about dying in this facility. She expressed openly increased depressive symptoms without suicidal ideation. Introduced medical management of her depressive symptoms have the patient is open for assistance through medical management. Results - Lab Results Lab results reviewed: Yes Lab and Imaging Results: 01/14/2021 Sodium 136, potassium 4.3, BUN 19, creatinine 0.6, estimated GFR 97, albumin 2.6, WBC 19.3, hemoglobin 9.6, hematocrit 30.3%, platelet 609, neutrophil count 14.9 Impression and Recommendations - Palliative Care Impression: This is a 75-year-old female with squamous cell carcinoma of the left lung diagnosed September 2020 with a past history of tobacco abuse, unintentional weight loss, functional debility, and recent and leukocytosis.She is expressing depressive symptoms and is open to medical management and therefore will initiate sertraline 25 mg daily. She continues to have an adamant desire of returning home now, with hospice services, after obtaining surgery for her left Achilles contracture which she believes With repair she will be able to easily ambulate again. The patient continues to be unable to perceive her physical limitations. Palliative care to continue to explore goals of care, provide care coordination, symptom management and anticipatory guidance. Recommendations/Counseling Done: 1. Leukocytosis. Patient had WBC of 19.3 obtained on 01/14/2021 after completing a 10-day course of amoxicillin for sinusitis. No evidence of acute infection on examination today. She remains afebrile. Reviewed with the patient that there is no evidence of acute otitis media to her right ear on physical examination and it would not be appropriate to administer amoxicillin and potentially increase her risk of of development of C. difficile. Potential leukocytosis could be due to obstructive pneumonia as the patient has underlying history of lung cancer however, the patient continues to decline obtainment of a chest x- ray for which there is presently a standing order. Additional possibility for the leukocytosis if the patient continues to be asymptomatic may be due to her underlying squamous cell carcinoma of the left lung. Continue to monitor for any signs and symptoms of infection. 2. Protein calorie malnutrition.The patient has had a 13 pound weight loss that has been unintentional since October 2020 approximately 10% loss of weight. This is likely indicative of her underlying squamous cell carcinoma of the left lung as well as her longstanding history and relationship with food as reported by the patient's daughter. She continues on protein supplementation. Continue to encourage the patient to consume protein rich foods. Continue to encourage small frequent meals throughout the day. Continue to monitor weight loss trends. Patient has an albumin level of of 2.6 obtain 01/14/2021. 3. Depression.Patient is expressing depressive symptoms due to her multiple comorbidities and present circumstances. Supportive listening provided. Will initiate sertraline 25 mg daily for depression and reviewed purpose, dose and side effects with the patient. Reviewed potential side effect may be loose stools with understanding verbalized and may be assistive due to the patient's history of constipation. Advised the patient it may take 2 to 4 weeks to see effect of medication with understanding verbalized. 4. Physical deconditioning and debility. Fall precautions. Patient is demonstrating Ortho for static hypotension due to her muscular atrophy and physical deconditioning. Patient believes that she may need to be able to undergo her left Achilles contracture surgery per her conversation with orthopedics. We will follow-up with orthopedics office regarding decision to proceed and then will refollow-up with the patient regarding further planning. 5. Squamous cell carcinoma of the left lung. Diagnosed 09/2020. Patient has a history of tobacco abuse. She had a consultation with oncologist, Dr. Sabas Morel via telemedicine with last visit 12/11/2020. The patient has elected not to proceed with repeat biopsy of her left lung mass for molecular testing for targeted immunotherapy. She has been offered immunotherapy but at this time continues to elect not to pursue any treatment options while she is in [facility]. Reintroduced hospice services to the patient and reviewed the role of hospice recognizing that she would be unable to have any curative treatment if elected to go on hospice. 6. Advanced care planning. Patient has D POLST in place as DN AR with comfort measures. She continues to have no symptom burden related to her cancer diagnosis of squamous cell carcinoma of the left lung. She has a significant desire to leave [facility] and return home and is open to hospice services in that setting. Introduced that if she were unable to proceed with her planned surgery if she would still be open to hospice therapy and this is something that she would be willing to readdress and be open to as she would have a new care team providing support. Total time spent 45 minutes with greater than 50% of this spent in counseling and coordination of care with the patient and nursing staff; examination of patient; review of hospice philosophy; review of symptom management and anticipatory guidance. [id number]: Contacted the patient's daughter, Sharmin via phone and updated regarding plan of care and in agreement to follow up on Wednesday after talking to the orthopedist's office to further tease out moving forward with hospice within the facility. Questions answered and addressed with the daughter. [id number]:spoke to ALAINA Bartlett with Dr. Gale, orthopedist, who reports that the surgery has been cancelled and that Dr. Gale and the patient spoke about the cancelled surgery yesterday via phone. Contacted by Mariluz at [facility] regarding the patient but unable to reach at return call back number [phone]. Discussed plan of care with patient's facility provider, Dr. Rosa at length and reviewed all of the above with understanding verbalized and agreement with plan of care. Disclaimer: The chart note was formulated using voice recognition technology and unfortunately sound alike errors may occur.
== END 2021-01-24 09:01 | disposition home or self-care (01) ==
LOC: PC 09:00
PROVIDERS: ATTEND Nurse Practitioner Family
DX: Z51.5 Encounter for palliative care (principal); D72.829 Elevated white blood cell count, unspecified; E46 Unspecified protein-calorie malnutrition; R63.4 Abnormal weight loss; F32.9 Major depressive disorder, single episode, unspecified; R53.81 Other malaise; I95.1 Orthostatic hypotension; C34.90 Malignant neoplasm of unspecified part of unspecified bronchus or lung; Z86.16 Personal history of COVID-19; Z87.891 Personal history of nicotine dependence; Z66 Do not resuscitate
CPT/HCPCS: 99310

== ENCOUNTER 2021-01-27 11:55 | Outpatient (CLI) | payer MEDICARE, OTHER ==
--- NOTE | 2021-01-27 13:52 | CONSULTATION NOTE ---
Palliative Care Follow Up - Referral Referring Provider: Dr. Ramsey/Dr. 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 The patient has undergone a series of unfortunate events. She has a longstanding history of spinal stenosis with 2 surgeries one performed, July 2019 and the second performed in January 2020. 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 She then sustained a fall within her apartment resulting in a left hip fracture. She underwent a left hemiarthroplasty on 08/06/2020. She continues to be significantly debilitated and was not consistent in her sessions with physical therapy or working with staff between her sessions to get up and ambulate. She is now further debilitated by orthostatic hypotension in the setting of her deconditioning. She was seen by orthopedics for her left foot drop and an AFO would not be effective in providing support, surgery was offered. However, due to the patient's generalized decline and new leukocytosis earlier this month the surgery has been officially cancelled and this was confirmed on 01/24/2021. The patient was noted to have guaiac positive And after persuasion allow the lab work to be obtained on 01/14 that demonstrated WBC 19.3, hemoglobin 9.6, hematocrit 30.3%, platelet 609, and neutrophil count 14.9. The patient has remained afebrile. The patient's facility provider ordered a chest x-ray for further evaluation of leukocytosis and she continues to refused the CXR today stating that "I don't want to add any more fuel to the fire." She was diagnosed with sequamous cell carcinoma of the left lung after FNA 09/2020 (T3, N0, M0). The patient has not been deemed a surgical candidate and due to her prior experience with chemotherapy with friends and family memmbers she has been very clear that she does not want chemotherapy. She had a telemedicine visit with Dr. Sabas Morel, and unfortunately her tissue from her biopsy was not sufficient for PD-L1 testing and she did not want to go back and have another lung biopsy for testing. She was offered single agent nivolumab due to her above and poor preformance status and she has declined pursuing these options. She no longer is having left ear pain. She now reports in the last two days that she has developed left chest wall pain that does not radiate. She perceives that the pain comes through her back to her front chestwall. She feels this is due to the poor air quality and control that is in her room due to regulating her temperature. She reports her sinuses have improved with restarting zyrtec. She has not taking any pain medication as she finds any of them cause her to be constipated, including tylenol. The patient's weight has remained stable over the last month at 117 pounds obtained on 01/16/2021. However, the patient weighed 130 pounds in October 2020 with a 13 pound weight loss and 10% weight loss in the last 4 months. She reports that she had a small bowel of cereal this AM. She has mild intermittent nausea that is controlled with zofran. The patient is seen laying down in her hospital bed with her eyeglasses in place watching television with an elevated volume. No apparent distress. Past Medical History: Patient has a past medical history significant for migraines, thyroid nodule, GE RD, incontinence, chronic sinusitis, chronic back pain, left foot drop, balance issues, lumbar radiculopathy, nocturnal leg cramps, osteoarthritis, left hip hemiarthroplasty, squamous cell carcinoma of the left lung 2019, COVID-19 2019, HRT. Social History - Living Situation Living arrangement: shelter Living Situation: Alone Support System: Prior to her presents today at [facility] for rehabilitation at the nursing facility, the patient was residing alone in her apartment In [place]. She is . She spent much of her adult life in [place] ([place] and [facility]). 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 She has 3 children and rates them as a single mother. 2 sons are in [place] and her daughter is residing on [facility]. Since January 2020 the patient's daughter has provided assistance with groceries and was coming to the home 3 times per week. The patient has been residing in her apartment for approximately 2 years after relocating to [facility] from [place]. Medications/Allergies - Medications Home Medications: Ambulatory Orders Medication Instructions Recorded Confirmed Bisacodyl Supp [Dulcolax Supp] 10 mg ND DAILY PRN MDD if senna 09/05/20 12/12/20 not effective Capasicin 0.1% 1 applic TP BID MDD b/l knees 09/05/20 12/12/20 Magnesium Hydroxide [Milk of 30 ml PO DAILY PRN MDD if no BM in 09/05/20 12/12/20 Magnesia] 2 days Montelukast [Singulair] 10 mg PO QPM 09/05/20 12/12/20 Senna [Senokot] 1 tab PO Q4H PRN 09/05/20 12/12/20 polyethylene glycoL 3350 [Miralax] 17 g PO BID PRN 09/05/20 12/12/20 Cyclobenzaprine HCl 5 mg PO QPM PRN 10/02/20 12/12/20 Fluticasone/Vilanterol [Breo 1 puffs IH DAILY 10/02/20 12/12/20 Ellipta 100-25 Mcg INH] Aspirin/Acetaminophen/Caffeine 2 tab PO Q6HR PRN MDD NTE 8tab/24h 12/12/20 12/12/20 [Excedrin Migraine Caplet] Calcium Carbonate [Tums (Calcium 2 tab PO Q4H PRN 12/12/20 12/12/20 Carbonate 500mg)] Ondansetron HCl [Zofran] 4 mg PO Q6H PRN 12/12/20 12/12/20 guaiFENesin [Guaifenesin ER] 1 tab PO BID PRN 12/12/20 12/12/20 Acetaminophen [Acetaminophen Extra 500 mg PO Q4H PRN 12/19/20 12/19/20 Strength] Ibuprofen 200 mg PO Q6H PRN 12/19/20 12/19/20 Selan Zinc Cream 1 applic TP BID MDD and PRN to 12/19/20 MASD areas Loperamide HCl [Imodium A-D] PRN MDD NTE 4tab/day 01/10/21 Oxycodone HCl/Acetaminophen 0.5 tab PO Q4H PRN 01/10/21 01/10/21 [Percocet 2.5-325 mg Tablet] Pepto Bismol Suspension 30 ml PO Q1H PRN MDD NTE 240mL/24hr 01/10/21 Phenyleph/Mineral Oil/Petrolat 1 appful ND Q6H PRN 01/10/21 01/10/21 [Preparation H Ointment] Simethicone [Mylicon] 1 tab PO Q4H PRN 01/10/21 01/10/21 Cetirizine [ZyrTEC] 10 mg PO DAILY 01/24/21 01/24/21 Mirtazapine [Remeron] 7.5 mg PO QPM 01/27/21 01/27/21 - Allergies Allergies/Adverse Reactions: Allergies Allergy/AdvReac Type Severity Reaction Status Date / Time Sulfa (Sulfonamide Allergy Unknown Verified 01/24/21 19:48 Antibiotics) Review of Systems - Constitutional Constitutional: reports: Poor appetite, Weight loss (weight 117lb 01/16/2021, previous 130lb October 2020). denies: Fever - Eyes Eyes: reports: Corrective lenses, Other (see hPI for further details). denies: Blurred vision - Ears, Nose & Throat Ears, Nose & Throat: denies: Ear pain, Hearing loss, Nasal congestion (see HPI) - Cardiovascular Cardiovascular: reports: Chest pain (left chestwall, see HPI), Other (orthostatic hypotension). denies: Palpitations, Edema - Respiratory Respiratory: denies: Cough, Wheezing - Gastrointestinal Gastrointestinal: reports: Constipation (see HPI, belives it is due to various medications), Nausea, Poor appetite. denies: Rectal bleeding, Vomiting - Genitourinary Genitourinary: denies: Dysuria - Musculoskeletal Musculoskeletal: reports: Stiffness, Assistive devices (walker), Transfer issues. denies: Joint pain - Integumentary Integumentary: reports: Other (mositure associated dermatitis buttocks) - Neurological Neurological: reports: General weakness. denies: Headache - Psychiatric Psychiatric: reports: Depression - Endocrine Endocrine: reports: Other (Thyroid nodule). denies: Hypothyroidism - Hematologic/Lymphatic Hematologic/Lymph: reports: Anemia - All Other Systems All Other Systems: reports: Reviewed and negative Physical Exam - Vital Signs Temperature: 36.3 C Pulse Rate: 91 Respiratory Rate: 20 O2 Saturation: 96 Blood Pressure: 88/50 - Physical Exam General Appearance: positive: No acute distress, Alert, Cachetic Eyes Bilateral: positive: Conjunctivae nml, Other (corrective lenses in place; b/l temporal wasting) ENT: positive: No signs of dehydration Neck: positive: Trachea midline. negative: Lymphadenopathy (R), Lymphadenopathy (L) Cardiovascular: positive: Regular rate & rhythm, No murmur Respiratory: positive: Chest non-tender, No respiratory distress, Breath sounds nml, Other (LLL crackles that clear with cough c/w atelectasis; reports pain between 3rd and 4th ribs in the intercostal space) Abdomen: positive: Non-tender, Soft, Nml bowel sounds, Other (bladder nondistended). negative: Guarding Skin: positive: Pallor, Other (.B/l heels intact without erythema. 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 This was confirmed by this provider last Wednesday with orthopedics office. In discussion with physical therapy today, they relate that even with the left Achilles contracture repair it is unlikely the patient would be able to ambulate which was her perceived perception. She has been someone that did not participate fully with onsite physical therapy services. The patient continues to express her frustration regarding her present circumstances. She has a strong desire to not with in this facility and wishes to at home. It could be a potential option for the patient during transition to the home environment with hospice services when she is closer to end-of-life with support from her family and hopefully from caregiving assistance which her daughter has expressed hoping to honor and for fill. The patient today recognizes that in her present functional status she would not be able to return home without 24/7 support. She recognizes that the care that she requires will be too much for her daughter to handle independently. She is open to transitioning to hospice services with in the facility environment where she will have additional added layer of support from the hospice team to work with both her and her daughter. The patient Continues to enact her control through picking and choosing which medication she will and will not take due to her limited purview when her present circumstances. Impression and Recommendations - Palliative Care Impression: This is a 75-year-old female with squamous cell carcinoma of the left lung diagnosed September 2020 with a past history of tobacco abuse, unintentional weight loss, and leukocytosis. She is reporting left chest wall pain. She is expressing depressive symptoms and is open to medical management but finds sertraline constipating. Due to her present circumstances she is open to transitioning to hospice services within the facility with hopeful goal of dying within her apartment in the future. Will transition to [facility] hospice services per the patient's wishes. Recommendations/Counseling Done: 1. Leukocytosis. Patient had WBC of 19.3 obtained on 01/14/2021 after completing a 10-day course of amoxicillin for sinusitis. She remains afebrile. No respiratory complaints. Potential leukocytosis could be due to obstructive pneumonia as the patient has underlying history of lung cancer however, the patient continues to decline obtainment of a chest x-ray. Additional possibility for the leukocytosis if the patient continues to be asymptomatic may be due to her underlying squamous cell carcinoma of the left lung. Continue to monitor for any signs and symptoms of infection. 2. Protein calorie malnutrition.The patient has had a 13 pound weight loss that has been unintentional since October 2020 approximately 10% loss of weight. This is likely indicative of her underlying squamous cell carcinoma of the left lung as well as her longstanding history and relationship with food as reported by the patient's daughter. She continues on protein supplementation. Continue to encourage the patient to consume protein rich foods. Continue to encourage small frequent meals throughout the day. Continue to monitor weight loss trends. Patient has an albumin level of of 2.6 obtain 01/14/2021. Refer to hospice services at the patient's request. 3. Squamous cell carcinoma of the left lung. Diagnosed 09/2020. Patient has a history of tobacco abuse. She had a consultation with oncologist, Dr. Sabas Morel via telemedicine with last visit 12/11/2020. The patient has elected not to proceed with repeat biopsy of her left lung mass for molecular testing for targeted immunotherapy. She has been offered immunotherapy but at this time continues to elect not to pursue any treatment options while she is in [facility] and is not a surgical candidate. Reintroduced hospice services to the patient and reviewed the role of hospice recognizing that she would be unable to have any curative treatment if elected to go on hospice and she wishes to proceed with hospice services at [facility]. 4. Depression.Patient is expressing depressive symptoms due to her multiple comorbidities and present circumstances. Supportive listening provided. D/c sertraline at patient's request. Start remeron 7.5mg by mouth nightly for depression and appetite stimulation. Reviewed purpose, dose and side effects with patient with understanding verbalized.Advised the patient it may take 2 to 4 weeks to see effect of medication with understanding verbalized. 5. Left chestwall pain. Likely Muscular skeletal. Initiate salonpas pain relief patch apply 1 patch to affected area in the morning and remove in the evening. The patient is adverse to taking pain medication including Tylenol as she feels that all medications are constipating. 6. Advanced care planning. Patient has D MARIANNAST in place as DN AR with comfort measures. She recognizes due to her physical deconditioning and limitation she is unable to return home in her present physical condition and elects to proceed with [facility] hospice services within the facility of [facility]. Did introduce as the patient has a strong desire not to in the facility that have hospice entrance attendant made will work with her and her daughterSharmin to coordinate a plan to honor the patient's wishes to at home. This may be a potential in the foreseeable future but not at the present time. Supportive listening provided. And continues to be frustrated and not fully receptive regarding her present circumstances. Total time spent 30 with greater than 50% of time spent in counseling the patient and facility staff de-escalation of care; reintroduction of hospice philosophy and services; review of pain and symptom management and anticipatory guidance. Discussed POC at length with patient's daughterSharmin via phone. Updated patient's facility PCP, Dr. Rosa regarding request to transfer to hospice services. Disclaimer: The chart note was formulated using voice recognition technology and unfortunately sound alike errors may occur.
== END 2021-01-27 11:56 | disposition home or self-care (01) ==
LOC: PC 11:55
PROVIDERS: ATTEND Nurse Practitioner Family
DX: Z51.5 Encounter for palliative care (principal); D72.829 Elevated white blood cell count, unspecified; E46 Unspecified protein-calorie malnutrition; C34.92 Malignant neoplasm of unspecified part of left bronchus or lung; F32.9 Major depressive disorder, single episode, unspecified; R07.89 Other chest pain; Z86.16 Personal history of COVID-19; Z87.891 Personal history of nicotine dependence; Z66 Do not resuscitate
CPT/HCPCS: 99309